=== PATIENT | female | born 1935 | race Caucasian/White ===

== ENCOUNTER → 2016-08-04 | Outpatient (CLI) | payer BC ==
[~2016-08-04] MED LIST: ACET650T49 PO; ALBU1AER9 INH; ALUMCHW2 PO; APIX1TAB3 PO; ASPCH81X PO; ATOR10TA88 PO; BIOT1TAB5 PO; CLC100 PO; CLIN150C PO; DILT120C99 PO; DOCU100C31 PO; ESTR1CRE PV; EVS60 PO; FLUT0.0529 NAE; FURO-85 PO; LPR25 PO; MULT-506 PO; OMEP20CA9 PO; OMEP40CA41 PO; POTA10CA28 PO; POTA10TA PO; RALO60TA12 PO; SIMV10TA2 PO; SPIR50TA PO; [UNRECOGNIZED DRUG - CODE] OP; [UNRECOGNIZED DRUG - CODE] OPB
[2016-08-04 19:16] LABS: BASO % 0.5 %; BASO ABS # 0.03 K/uL (0-0.2); EOS % 2.1 %; HEMATOCRIT 37.4 % (37-47); IG% 0.5 %; LYMPH % 30.4 %; LYMPH ABS # 2.02 K/uL (1.2-3.4); MEAN CELL VOLUME 94.9 fL (80-100); MEAN CORPUSCULAR HEMOGLOBIN 31.5 pg (25-34); MEAN PLATELET VOLUME 8.8 fL (7.4-10.4); MONO % 7.2 %; NEUT % 59.3 %; PLATELET COUNT 334 K/uL (130-400); RED BLOOD COUNT 3.94 M/uL (4.2-5.4); WHITE BLOOD COUNT 6.65 K/uL (4.8-10.8)
[2016-08-04 19:41] LABS: BLOOD UREA NITROGEN 9 mg/dl (7-18); CALCIUM 8.9 mg/dl (8.5-10.1); CARBON DIOXIDE 32 mmol/L (21-32); CHLORIDE 105 mmol/L (98-107); COMPLETE YES; CREATININE 0.72 mg/dl (0.60-1.20); GLUCOSE 84 mg/dl (70-99); MEAN CORPUSCULAR HGB CONC 33.2 g/dl (32-36); POTASSIUM 3.7 mmol/L (3.5-5.1); SODIUM 141 mmol/L (136-145)
== END | disposition home or self-care (01) ==
LOC: C.LAB 19:00
PROVIDERS: ATTEND Family Medicine
DX: R07.9 Chest pain, unspecified (principal)

== ENCOUNTER → 2016-08-05 | Outpatient (CLI) | payer BC ==
--- NOTE | 2016-08-05 18:34 | DIAGNOSTIC IMAGING REPORT ---
CHEST 2 VIEWS ROUTINE HISTORY: COUGH, NASAL CONGESTION COMPARISON: Chest 11/18/2011. FINDINGS: S-shaped scoliosis of the thoracolumbar spine. Lumbar spine fusion hardware is again noted. No focal lung consolidations to suggest pneumonia. No evidence for pulmonary edema. The heart is normal in size. No pleural effusions. No pneumothorax. Moderate to large hiatus hernia, unchanged. IMPRESSION: 1. No acute process. No focal lung consolidations to suggest pneumonia. 2. Hiatus hernia, unchanged. Electronically signed by: Iron Olivares M.D. 08/05/2016 6:32 PM Dictated Date/Time: 08/05/2016 6:31 PM
== END | disposition home or self-care (01) ==
LOC: C.RAD 18:01
PROVIDERS: ATTEND Student in an Organized Health Care Education/Training Program
DX: R05 Cough (principal); R09.81 Nasal congestion; K44.9 Diaphragmatic hernia without obstruction or gangrene

== ENCOUNTER → 2016-08-14 | Outpatient (CLI) | payer BC ==
--- NOTE | 2016-08-14 13:35 | MAMMOGRAPHY REPORT ---
BILATERAL DIGITAL SCREENING MAMMOGRAM WITH CAD: 08/14/2016 CLINICAL HISTORY: Routine screening. Patient has no complaints. TECHNIQUE: Current study was also evaluated with a Computer Aided Detection (CAD) system. Bilatera l CC and MLO views were obtained. COMPARISON: Comparison is made to exams dated: 07/27/2015 mammogram, 07/12/2013 mammogram, 07/18/2014 m ammogram, 07/09/2012 mammogram, 07/06/2012 mammogram, and 07/01/2011 mammogram - [facility]. BREAST COMPOSITION: There are scattered areas of fibroglandular density in both breasts. FINDINGS: No suspicious masses, calcifications, or areas of architectural distortion are noted in e ither breast. There has been no significant interval change compared to prior exams. Scattered bila teral benign-appearing calcifications are not significantly changed. Left superior breast asymmetry is stable dating back to at least the 2008 exam. IMPRESSION: ACR BI-RADS CATEGORY 2: BENIGN There is no mammographic evidence of malignancy. A 1 year screening mammogram is recommended. The p atient will receive written notification of the results. Approximately 10% of breast cancers are not detected with mammography. A negative mammographic repor t should not delay biopsy if a clinically suggestive mass is present. Evi Camacho M.D. ah/:08/14/2016 09:16:25 Nurse Special: Michael MARSHALL(R)(M), [facility] letter sent: Normal 1/2 BI-RADS Code: ACR BI-RADS Category 2: Benign
== END | disposition home or self-care (01) ==
LOC: C.MAMM 08:14
PROVIDERS: ATTEND Family Medicine
DX: Z12.31 Encounter for screening mammogram for malignant neoplasm of breast (principal)

== ENCOUNTER → 2016-09-15 | Day surgery (SDC) | payer BC ==
[2016-09-03 13:05] VITALS: Ht 152.4 cm; Wt 59.1 kg
[~2016-09-15] VITALS: Ht 152.4 cm; Wt 59.1 kg
[~2016-09-15] MED LIST changes: +ATOR10TA82 PO; -ATOR10TA88 PO; -CLC100 PO; -ESTR1CRE PV; -EVS60 PO; -FLUT0.0529 NAE; +LIDOCAINE HCL 2% 2 ML VIAL (20MG/ML) ONE; -OMEP20CA9 PO; -POTA10CA28 PO; +PROPOFOL IV EMULSION 10 MG/ML 20 ML VIAL IV ONE; -RALO60TA12 PO; +RALO60TA30 PO; -SIMV10TA2 PO; +SODIUM CHLORIDE 0.9% 500ML 500 ML IV ONE; -SPIR50TA PO; -[UNRECOGNIZED DRUG - CODE] OP
--- NOTE | 2016-09-15 16:19 | Endo History and Physical ---
History & Physical Date of Service: September 15, 2016. Chief Complaint: Atypical chest pain, dysphagia/reflux Referring Physician: Deo Gonzales Rn History of Present Illness 81 yo CF who presents for EGD secondary to dysphagia and GERD. Past Surgical History Hx Cardiac Surgery: No Hx Internal Defibrillator: No Hx Pacemaker: No Hx Abdominal Surgery: No Hx of Implantable Prosthesis: No Hx Post-Op Nausea and Vomiting: No Hx Cancer Surgery: Yes Hx Thoracic Surgery: No Hx Orthopedic: Yes (LUMBAR FUSION X 2, RT JAMES) Hx Urinary Tract Surgery: No Family History None Social History Smoking Status: Former Smoker Hx Substance Use: No Hx Alcohol Use: Yes (1 GLASS OF WINE DAILY) Allergies Coded Allergies: Iodine (Verified Allergy, Unknown, SICK TO STOMACH, 09/03/16) Lobster (Verified Allergy, Unknown, VIOLENTLY SICK, 09/03/16) Penicillins (Verified Allergy, Unknown, SICK TO STOMACH, 09/03/16) Propoxyphene (Verified Allergy, Unknown, HYPER, 09/03/16) Shrimp (Verified Allergy, Unknown, VIOLENTLY SICK, 09/03/16) Tetanus Toxoid (Verified Allergy, Unknown, "OUT OF ORBIT", 09/03/16) Pseudoephedrine (Verified Adverse Reaction, Mild, PASSED OUT, SPACEY, 09/03) Current Medications Reported Home Medications Medications Dose Route/Sig Max Daily Dose Days Date Category Dose Instructions Nevanac (Nepafenac) 0.1 % Laurence 1 Drops OPB HS 30 09/03/16 Reported Gaviscon (Aluminum Hydroxide-Mag Trisil) 1 Chw Chw 1 Tab PO HS 09/03/16 Reported Lipitor (Atorvastatin Calcium) 10 Mg Tab 10 Mg PO HS 09/03/16 Reported K-Tabs (Potassium Chloride) 10 Meq Tab 1 Tab PO QAM 09/03/16 Reported Prilosec (Omeprazole) 40 Mg Cap 40 Mg PO QAM 09/03/16 Reported Multivitamin (Multivitamins) Tab 1 Tab PO QAM 09/03/16 Reported Lopressor (Metoprolol Tartrate) 25 Mg Tab 25 Mg PO BID 09/03/16 Reported Lasix (Furosemide) 20 Mg Tab 20 Mg PO DAILY PRN 09/03/16 Reported Evista (Raloxifene Hcl) 60 Mg Tab 60 Mg PO QPM 09/03/16 Reported Eliquis (Apixaban) 5 Mg Tab 5 Mg PO BID 09/03/16 Reported Docusate Sodium 100 Mg Cap 1 Cap PO HS 7 09/03/16 Reported Diltiazem Cd (Diltiazem Hcl Coated Beads) 120 Mg Cap 120 Mg PO QPM 09/03/16 Reported Cleocin (Clindamycin Hcl) 150 Mg Cap 150 Mg PO DIRECTED PRN 09/03/16 Reported Arthritis Pain Relief (Acetaminophen) 650 Mg Tab 1 Tablets PO BID 02/28/13 Reported takes at 2am & 2pm Proair Hfa (Albuterol) Aers 2 Puffs INH BID PRN 02/28/13 Reported as needed for wheezing Aspirin Chewable (Aspirin) 81 Mg Chew 81 Mg PO QPM 02/28/13 Reported Biotin 1,000 Mcg Tab 1,000 Mcg PO QAM 02/28/13 Reported Vital Signs Weight (Kilograms): 59.09 Height (Feet): 5 Height (Inches): 0 Date Time Temp Pulse Resp B/P Pulse Ox O2 Delivery O2 Flow Rate FiO2 09/15/16 15:36 36.7 68 20 171/88 99 Room Air Physical Exam General Appearance: WD/WN, no apparent distress Respiratory/Chest: Auscultation: breath sounds normal Cardiovascular: Heart Auscultation: RRR Abdomen: Bowel Sounds: normal Inspection & Palpation: soft, non-distended, no tenderness, guarding & rebound Assessment and Plan Assessment: 81 yo CF who presents for EGD secondary to dysphagia and GERD. Plan: Proceed with colonoscopy.
--- NOTE | 2016-09-15 16:34 | Anesthesiology Progress Note ---
Anesthesia Post Op Note Date & Time September 15, 2016 at 16:33 Vital Signs Pain Intensity: 3 Vital Signs Past 12 Hours Date Time Temp Pulse Resp B/P Pulse Ox O2 Delivery O2 Flow Rate FiO2 09/15/16 15:36 36.7 68 20 171/88 99 Room Air Notes Mental Status: alert / awake / arousable, participated in evaluation Pt Amnestic to Procedure: Yes Nausea / Vomiting: adequately controlled Pain: adequately controlled Airway Patency, RR, SpO2: stable & adequate BP & HR: stable & adequate Hydration State: stable & adequate Anesthetic Complications: no major complications apparent
--- NOTE | 2016-09-15 16:35 | Discharge Instructions ---
Endoscopy Patient Instructions Date / Procedure(s) Performed September 15, 2016. EGD Allergy Information Coded Allergies: Iodine (Verified Allergy, Unknown, SICK TO STOMACH, 09/15/16) Lobster (Verified Allergy, Unknown, VIOLENTLY SICK, 09/15/16) Penicillins (Verified Allergy, Unknown, SICK TO STOMACH, 09/15/16) Propoxyphene (Verified Allergy, Unknown, HYPER, 09/15/16) Shrimp (Verified Allergy, Unknown, VIOLENTLY SICK, 09/15/16) Tetanus Toxoid (Verified Allergy, Unknown, "OUT OF ORBIT", 09/15/16) Pseudoephedrine (Verified Adverse Reaction, Mild, PASSED OUT, SPACEY, ) Discharge Date / Findings September 15, 2016. Gastritis s/p biopsies Large Hiatal hernia Medication Instructions Stopped Medication(s): Eliquis OK to resume all medications today as prescribed Reported Home Medications Medications Dose Route/Sig Max Daily Dose Days Date Category Dose Instructions Nevanac (Nepafenac) 0.1 % Laurence 1 Drops OPB HS 30 09/03/16 Reported Gaviscon (Aluminum Hydroxide-Mag Trisil) 1 Chw Chw 1 Tab PO HS 09/03/16 Reported Lipitor (Atorvastatin Calcium) 10 Mg Tab 10 Mg PO HS 09/03/16 Reported K-Tabs (Potassium Chloride) 10 Meq Tab 1 Tab PO QAM 09/03/16 Reported Prilosec (Omeprazole) 40 Mg Cap 40 Mg PO QAM 09/03/16 Reported Multivitamin (Multivitamins) Tab 1 Tab PO QAM 09/03/16 Reported Lopressor (Metoprolol Tartrate) 25 Mg Tab 25 Mg PO BID 09/03/16 Reported Lasix (Furosemide) 20 Mg Tab 20 Mg PO DAILY PRN 09/03/16 Reported Evista (Raloxifene Hcl) 60 Mg Tab 60 Mg PO QPM 09/03/16 Reported Eliquis (Apixaban) 5 Mg Tab 5 Mg PO BID 09/03/16 Reported Docusate Sodium 100 Mg Cap 1 Cap PO HS 7 09/03/16 Reported Diltiazem Cd (Diltiazem Hcl Coated Beads) 120 Mg Cap 120 Mg PO QPM 09/03/16 Reported Cleocin (Clindamycin Hcl) 150 Mg Cap 150 Mg PO DIRECTED PRN 09/03/16 Reported Arthritis Pain Relief (Acetaminophen) 650 Mg Tab 1 Tablets PO BID 02/28/13 Reported takes at 2am & 2pm Proair Hfa (Albuterol) Aers 2 Puffs INH BID PRN 02/28/13 Reported as needed for wheezing Aspirin Chewable (Aspirin) 81 Mg Chew 81 Mg PO QPM 02/28/13 Reported Biotin 1,000 Mcg Tab 1,000 Mcg PO QAM 02/28/13 Reported Provider Instructions Activity Restrictions - No exercising or heavy lifting for 24 hours. - Do not drink alcohol the day of the procedure. - Do not drive a car or operate machinery until the day after the procedure. - Do not make any important decisions or sign important papers in 24 hours after the procedure. Following Day: - Return to full activity which may include returning to work/school. Diet Start your diet with liquids and light foods (jello, soup, juice, toast). Then eat your usual diet if not nauseated. Treatment For Common After Affects For mild abdominal pain, bloating, or excessive gas: - Rest - Eat lightly - Lie on right side Follow-Up Information Follow-up with Deo Gonzales Rn as scheduled Anesthesia Information What You Should Know You have had a procedure that required some medicine to reduce anxiety and discomfort. This treatment is called moderate sedation. After receiving the treatment, you may be sleepy, but you will be able to breathe on your own. The effects of the treatment may last for several hours. Follow these instructions along with Activity/Diet recommendations noted above: * Do NOT do anything where dizziness or clumsiness would be dangerous. * Rest quietly at home today, then you can be up and about tomorrow. * Have a responsible person stay with you the rest of today. * You may have had an I.V. today. If so, you may take the dressing off later today. Recommendations Call your doctor if: * Trouble breathing * Continuous vomiting for more than 24 hours * Temperature above 101 degrees * Severe abdominal pain or bloating * Pain not relieved by pain medicine ordered * There is increased drainage or redness from any incision * A large amount of rectal bleeding greater than 2-3 tablespoons. (If you had a polyp/s removed or have hemorrhoids, a small amount of blood - from the rectum is to be expected.) * You have any unanswered questions or concerns. IN THE EVENT OF A SERIOUS EMERGENCY, GO TO THE NEAREST EMERGENCY ROOM Your discharge instructions were prepared by provider Elgin Guzman. Patient Instructions Signature Page Elaine Vasquez Patient (or Guardian) Signature/Date: I have read and understand the instructions given to me by my caregivers. Caregiver/RN/Doctor Signature/Date: The above-named patient and/or guardian has received patient instructions on this date. + Original Patient Signature Page (only) stays with chart. Please make copy for patient.
--- NOTE | 2016-09-15 16:48 | GI REPORT ---
Procedure Date: 09/15/2016 4:11 PM Procedure: Upper GI endoscopy Indications: Dysphagia, Gastro-esophageal reflux disease Medicines: Monitored Anesthesia Care Complications: No immediate complications. Estimated Blood Loss: Estimated blood loss: none. Procedure: Pre-Anesthesia Assessment: - Prior to the procedure, a History and Physical was performed, and patient medications and allergies were reviewed. The patient's tolerance of previous anesthesia was also reviewed. The risks and benefits of the procedure and the sedation options and risks were discussed with the patient. All questions were answered, and informed consent was obtained. Prior Anticoagulants: The patient last took aspirin 1 day and Eliquis (apixaban) 3 days prior to the procedure. ASA Grade Assessment: III - A patient with severe systemic disease. After reviewing the risks and benefits, the patient was deemed in satisfactory condition to undergo the procedure. After obtaining informed consent, the endoscope was passed under direct vision. Throughout the procedure, the patient's blood pressure, pulse, and oxygen saturations were monitored continuously. The scope was introduced through the mouth, and advanced to the second part of duodenum. The upper GI endoscopy was accomplished without difficulty. The patient tolerated the procedure well. Findings: The examined esophagus was normal. A large hiatus hernia was present. Localized mild inflammation characterized by erythema was found in the gastric antrum. Biopsies were taken with a cold forceps for histology. The examined duodenum was normal. Impression: - Normal esophagus. - Large hiatus hernia. - Gastritis. Biopsied. - Normal examined duodenum. Recommendation: - Resume previous diet. - Continue present medications. - Await pathology results. - Refer to a surgeon at appointment to be scheduled. Elgin Guzman, DO 09/15/2016 4:47:43 PM This report has been signed electronically. Note Initiated On: 09/15/2016 4:11 PM I attest to the content of the Intraoperative Record and orders documented therein, exceptions below
[2016-09-15 17:04] VITALS: BP 168/94; PULSE 69; O2SAT 99
== END | disposition home or self-care (01) ==
LOC: C.GI 14:34
PROVIDERS: ATTEND Internal Medicine
DX: K44.9 Diaphragmatic hernia without obstruction or gangrene (principal); K31.9 Disease of stomach and duodenum, unspecified; K21.9 Gastro-esophageal reflux disease without esophagitis; R13.10 Dysphagia, unspecified; Z87.891 Personal history of nicotine dependence; Z79.82 Long term (current) use of aspirin; Z79.899 Other long term (current) drug therapy

== ENCOUNTER → 2017-04-23 | Outpatient (CLI) | payer BC ==
[~2017-04-23] MED LIST changes: -LIDOCAINE HCL 2% 2 ML VIAL (20MG/ML) ONE; -PROPOFOL IV EMULSION 10 MG/ML 20 ML VIAL IV ONE; -SODIUM CHLORIDE 0.9% 500ML 500 ML IV ONE
== END | disposition home or self-care (01) ==
LOC: C.MAMM 08:47
PROVIDERS: ATTEND Family Medicine
DX: M81.0 Age-related osteoporosis without current pathological fracture (principal); M85.839 Other specified disorders of bone density and structure, unspecified forearm; M85.859 Other specified disorders of bone density and structure, unspecified thigh

== ENCOUNTER → 2017-08-20 | Outpatient (CLI) | payer BC ==
--- NOTE | 2017-08-20 14:43 | MAMMOGRAPHY REPORT ---
BILATERAL DIGITAL SCREENING MAMMOGRAM TOMOSYNTHESIS WITH CAD: 08/20/2017 CLINICAL HISTORY: Routine screening. Patient has no complaints. TECHNIQUE: Breast tomosynthesis in addition to standard 2D mammography was performed. Current study was also evaluated with a Computer Aided Detection (CAD) system. COMPARISON: Comparison is made to exams dated: 08/14/2016 mammogram, 07/27/2015 mammogram, 07/18/2014 ma mmogram, 07/12/2013 mammogram, 01/06/2013 ultrasound, and 01/06/2013 mammogram - [facility] enter. BREAST COMPOSITION: There are scattered areas of fibroglandular density in both breasts. FINDINGS: No suspicious masses, calcifications, or areas of architectural distortion are noted in ei ther breast. There has been no significant interval change compared to prior exams. Bilateral benign -appearing calcifications are again noted. IMPRESSION: ACR BI-RADS CATEGORY 2: BENIGN There is no mammographic evidence of malignancy. A 1 year screening mammogram is recommended. The pa tient will receive written notification of the results. Approximately 10% of breast cancers are not detected with mammography. A negative mammographic report should not delay biopsy if a clinically suggestive mass is present. Evi Camacho M.D. /:08/20/2017 09:34:23 Health Nurse: Sharmaine David, [facility] letter sent: Normal 1/2 BI-RADS Code: ACR BI-RADS Category 2: Benign
== END | disposition home or self-care (01) ==
LOC: C.MAMM 08:24
PROVIDERS: ATTEND Family Medicine
DX: Z12.31 Encounter for screening mammogram for malignant neoplasm of breast (principal)

== ENCOUNTER 2022-05-09 12:18 | Inpatient (IN) ==
[2022-05-09] MEDS ORDERED: FAMOTIDINE 20MG IV PUSH 20 MG/5 ML SYR IV STA (12:40)
[2022-05-09] MEDS ORDERED: ACETAMINOPHEN 1,000 MG/100 ML VIAL IV STA (12:40)
[2022-05-09] MEDS ORDERED: ONDANSETRON INJ 2 MG/ML 2 ML VIAL IV STA (12:40)
[2022-05-09] MEDS ORDERED: SODIUM CHLORIDE 0.9% 500 ML IV ONE (12:40)
[2022-05-09 12:56] LABS: Hematocrit (blood only) 39.8 % (34.1-44.9); Hemoglobin 12.4 g/dl (12.0-16.0); Mean Corpuscular Hemoglobin 24.9 pg (25.0-34.0); Mean Corpuscular Hgb Conc 31.2 g/dL (32.0-36.0); Mean Corpuscular Volume 80.1 fL (80.0-100.0); Mean Platelet Volume 9.4 fL (9.4-12.3); Platelet Count 397 K/uL (130-400); RDW Coefficient of Variation 21.5 % (11.5-14.5); RDW Standard Deviation 58.4 fL (36.4-46.3); Red Blood Count 4.97 M/uL (3.93-5.22); White Blood Count 26.19 K/ul (4.8-10.8)
[2022-05-09 13:20] LABS: Anisocytosis Present; Basophils # (auto) 0.04 K/uL (0-0.2); Basophils % (auto) 0.2 %; Immature Granulocytes # (auto) 0.14 K/uL (0.00-0.02); Immature Granulocytes % (auto) 0.5 %; Lymphocytes % (auto) 7.6 %; Monocytes # (auto) 1.31 K/uL (0.24-0.82); Neutrophils % (auto) 86.7 %
[2022-05-09 13:25] LABS: BUN Creatinine Ratio 33.3 (10-20); Bilirubin,Total 0.7 mg/dl (0.2-1.0); Calcium 9.9 mg/dl (8.5-10.1); Creatinine Clr Calc Pharmacy 31.6 ml/min; Est GFR (African American) 68.1 ml/min; Est GFR (Non-African American) 58.7 ml/min; Globulin 3.9 gm/dl (2.5-4.0); Potassium 3.5 mmol/L (3.5-5.1); Total Protein 7.9 gm/dl (6.0-8.3)
[2022-05-09] MEDS ORDERED: OPTIRAY 350 100ml IV ONE (14:11)
--- NOTE | 2022-05-09 15:03 | CT Scan Report ---
CT OF THE ABDOMEN AND PELVIS WITH CONTRAST CLINICAL HISTORY: Abdominal pain and nausea. COMPARISON STUDY: Right upper quadrant ultrasound March 08, 2021. PET/CT January 07, 2021. TECHNIQUE: Following IV administration of 89 mL of Optiray, axial images of the abdomen and pelvis we re obtained from the lung bases to the proximal femurs. Images were reviewed in the axial, sagittal, and coronal planes. IV contrast was administered without complication. Automated exposure control wa s utilized for the study. A dose lowering technique was utilized adhering to the principles of ALARA . CT DOSE: 240.90 mGy.cm FINDINGS: A large hiatal hernia with partially intrathoracic stomach is partially imaged on this exam . Intrathoracic portion of the stomach is moderately distended with air-fluid level. No pneumatosis, free air or portal venous gas is present. Ground glass opacities within the right lower lungs favor a telectasis. A large right renal cyst measuring 13 cm is noted. A few smaller renal cysts are present. There are multiple hepatic cysts. There is no hydronephrosis. The adrenal glands are unremarkable. N ote is made of a subtle hypodense mass likely arising from the uncinate process of the pancreas on ax ial image 173 of 391. This measures approximately 3 x 2.8 cm. 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 There is no biliary or pancreatic ductal dilatation. No peripancreatic or pericholecystic stranding is noted. There is no evidence for a bowel obstruction. The appendix is not visualized. There is a moderate amount of stool within the transverse colon. Wall thickening of the transverse colon with mild adjacent stranding is present. There is no abscess. A p essary device is in place. There is no free fluid. No abscess is present. Right hip arthroplasty and postoperative findings within the spine are present. The caliber of the abdominal aorta is normal. Th e celiac axis is patent. 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 No acute fractures within the lumbar spi ne, pelvis or hips are identified. IMPRESSION: 1. Hypodense infiltrative mass, measuring approximately 3 x 2.8 cm, likely arising from the uncinate process. 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 This is consisten t with a neoplasm and pancreatic adenocarcinoma is a primary consideration. An infiltrative mesenteri c mass could appear similar. GI consultation for consideration for EUS guided biopsy is recommended. 2. Wall thickening of the transverse colon with mild adjacent stranding. This suggests a nonspecific colitis. Venous ischemic colitis is within the differential given the SMV stenosis/occlusion. 3. Large hiatal hernia. Moderately distended partially visualized intrathoracic stomach with air-flui d level. ACT 112: Positive. There are findings on this exam that require communication between the performing entity and the patient following Patient Test Result Information Act ([place] Act 112) guidelines. Electronically signed by: Armin Garcia M.D. 05/09/2022 3:01 PM
--- NOTE | 2022-05-09 15:18 | Emergency Department Note ---
Impression & Plan Abdominal mass, Colitis, Leukocytosis, Malignant melanoma of left lower leg ED Provider Note NAME: SHI LYNN AGE: 86 SEX: F ARRIVES VIA: Ambulance INFORMANT: Patient ED PROVIDER(S): Jeffrey William MD CHIEF COMPLAINT: Abdominal pain. 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 She reports also having symptoms of constipation in the setting of taking iron supplements. She reports her pain became more severe today and presents for evaluation. She denies any fevers, chills, cough, congestion, urinary symptoms. On arrival the patient is uncomfortable but no acute distress, afebrile with a rate in the 90s and blood pressure 170s/80s in the setting of her discomfort. Abdomen is soft but with moderate upper abdominal tenderness without guarding or rebound. WBC 26K with neutrophil predominance and left shift. H/H and platelets within normal limits. Chemistry without metabolic acidosis. BUN/creatinine> 30 consistent with the patient's clinically dry appearance. Electrolytes and LFTs without significant abnormality. Lipase within normal limits. COVID-19 RNA, ADRIENNE test was negative. 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 Additional note is made of wall thickening of the transverse colon and mild adjacent stranding which is consistent with a nonspecific colitis though venous ischemic colitis is within the differential given the above findings. Large hiatal hernia is also noted with moderate distention and partially visualized intrathoracic stomach with air-fluid levels. Case was discussed with gastroenterology on-call, Dr. Fletcher, who reviewed the patient's records. Appreciate recommendations. Does not feel as though the pancreatic mass is acutely related to the patient's symptoms and work-up for this would typically be done outpatient with EUS. He did see that there was question of malignancy in the region of the Duodenum on her PET scan from December. While she did have an EUS subsequently with biopsy negative for malignant cells, the site in question may have not been sampled/biopsied given subsequent growth of the pancreatic mass seen on CT today. Further, question of SMV stenosis occlusion typically will not require intervention and given the patient's malignancy would not be a candidate for intervention surgically. Agrees with admission for management of symptoms given leukocytosis with IV antibiotics and monitoring. His office will plan to arrange outpatient EUS when patient is able to be discharged. Upon re-evaluation the patient did feel improved following IVF hydration, apap, famotidine, and Zofran. However, still with mild upper abdominal tenderness. Findings and plan for admission reviewed with the patient, she was in agreement. blood cultures and Zosyn ordered. N "allergy" list is GI upset and so no suspected to be true allergy. Case was discussed [place], [facility] [place] who will evaluate the patient for admission. Findings and plan for admission reviewed with the patient's son, Duke Lynn Jr., over the phone who was driving up from [facility] to be with his mother in the hospital. Lactic acid 3.0 and Procalcitonin 12.4. Further management per admitting team. Triage Nursing notes reviewed and agree them. Prior medical records reviewed Vital Signs: reviewed Differential diagnosis: Gastroenteritis, food borne illness, infections, appendicitis, diverticulitis, inflammatory bowel disease, obstruction, GI bleed, biliary pathology, volvulus, as well as other pathologies. ER treatment provided: See below. Diagnostics interpreted by me: ECG: Normal sinus rhythm, 91 bpm, no ectopy, no overt ST ovation or depression, QTC 467, QRS 84. Cardiac Monitoring: An order for continuous cardiac monitoring was placed and demonstrated normal sinus rhythm, 91 bpm, no ectopy. Laboratory studies: See below Imaging studies: See below Consultation(s): Dr. Fletcher, GI on-call. Dr. 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 She reports also having symptoms of constipation in the setting of taking iron supplements. She reports her pain became more severe today and presents for evaluation. She denies any fevers, chills, cough, congestion, urinary symptoms. ROS: See above HPI for pertinent positives & negatives. A total of 10 systems reviewed and were otherwise negative. VITALS:See Below PHYSICAL EXAMINATION: GENERAL: Awake, alert, uncomfortable-appearing, in no distress HENT: Normocephalic, atraumatic. Oropharynx with dry mucous membranes and otherwise unremarkable. EYES: Normal conjunctiva. Sclera non-icteric. NECK: Supple. No nuchal rigidity. FROM. No JVD. RESPIRATORY: Clear to auscultation. CARDIAC: Regular rate, normal rhythm. Extremities warm and well perfused. Pulses equal. ABDOMEN: Soft, non-distended. Moderate upper abdominal tenderness without guarding or rebound. No rebound or guarding. No masses. RECTAL: Deferred. MUSCULOSKELETAL: Chest examination reveals no tenderness. The back is symmetrical on inspection without obvious abnormality. There is no CVA tenderness to palpation. No joint edema. LOWER EXTREMITIES: Calves are equal size bilaterally and non-tender. No edema. No discoloration. NEURO: Normal sensorium. No sensory or motor deficits noted. SKIN: No rash or jaundice noted. Jeffrey William MD Past Med/Surg History Medical History Atrial fibrillation with rapid ventricular response Bigeminal rhythm Glaucoma Melanoma of lower leg Migraine Plantar fasciitis of right foot Tinnitus Surgical History History of back surgery History of melanoma excision History of neck surgery History of total hip replacement S/P cataract surgery S/P correction of deviated nasal septum S/P dilation and curettage S/P laser trabeculoplasty of eye Anterior chamber S/P tonsillectomy Family History Mother Breast cancer Brother Cancer Father Congestive heart failure Myocardial infarction Denies family history of Ovarian cancer Prostate cancer Colorectal cancer Social History Smoking Status: Former smoker Tobacco Type: Cigarettes Second Hand Exposure: No; Do You Dip or Chew Tobacco: No; Tobacco Cessation Education Requested by Patient: No Hx Alcohol Use: No Hx Substance Use: No Preferred Language: South African Communication Ability: Effective Visual Impairment: No Limitations Hearing Ability: Normal Gate Guard Required: Yes Beliefs That Will Affect Care: None marital status: Current Living Situation: Spouse Current Living Situation Comment: cats current occupational status: retired Other Information That Helps Us Care for You: No Feels Safe at Home: Yes Safety Concerns: Feels Safe At This Time Dental Care, Regularly: Yes Physical Activity Frequency: 3-4 Times per Week Physical Activity Frequency Comment: TREADMILL Seatbelt Use: always Sunscreen Use: Yes Allergies Allergies Allergy/AdvReac Type Severity Reaction Status Date / Time nivolumab [From Opdivo] Allergy Severe Unknown Verified 05/09/22 16:58 shellfish derived Allergy Severe "violently Verified 05/09/22 16:58 sick" after eating lobster shrimp Allergy Intermediate VIOLENTLY Verified 05/09/22 16:58 SICK pseudoephedrine AdvReac Severe PASSED Verified 05/09/22 16:58 OUT, SPACEY iodine AdvReac Intermediate SICK TO Verified 05/09/22 16:58 STOMACH Penicillins AdvReac Intermediate SICK TO Verified 05/09/22 16:58 STOMACH propoxyphene AdvReac Intermediate HYPER Verified 05/09/22 16:58 tetanus toxoid, adsorbed AdvReac Intermediate "OUT OF Verified 05/09/22 16:58 ORBIT" Home Meds Home Medications Medication Instructions Recorded Confirmed biotin 1 mg tablet 1 mg PO DAILY 12/27/18 05/09/22 cholecalciferol (vitamin D3) 25 1,000 units PO DAILY 12/27/18 05/09/22 mcg (1,000 unit) tablet clindamycin HCl 150 mg capsule 150 mg PO DIRECTED PRN 1 HR 12/27/18 05/09/22 PRIOR TO DENTAL PROCEDURES docusate sodium 100 mg capsule 100 mg PO HS 12/27/18 05/09/22 triamcinolone acetonide 0.1 % 1 appln topical DIRECTED 11/04/19 05/09/22 topical cream bimatoprost 0.01 % eye drops 1 drp ophthalmic (eye) DAILY 02/11/21 05/09/22 (Lumigan) dorzolamide 22.3 mg-timolol 6.8 1 drp OPL BID 02/11/21 05/09/22 mg/mL eye drops (Cosopt) diclofenac sodium 1 % topical gel 2 g topical QID 08/15/21 05/09/22 (Arthritis Pain (diclofenac)) nepafenac 0.1 % eye 1 drp OPB DAILY 08/15/21 05/09/22 drops,suspension (Nevanac) apixaban 2.5 mg tablet 2.5 mg PO BID 01/14/22 05/09/22 Iron Infusion 0 dose IV DIRECTED PRN 05/09/22 05/09/22 EXHAUSTION acetaminophen 650 mg 650 mg PO TID 05/09/22 05/09/22 tablet,extended release aluminum hydrox-magnesium carb 160 1 tab PO HS 05/09/22 05/09/22 mg-105 mg chewable tablet atorvastatin 10 mg tablet 10 mg PO HS 05/09/22 05/09/22 diphenhydramine HCl 25 mg capsule 25 mg PO DIRECTED PRN 1 HR 05/09/22 05/09/22 (Benadryl) PRIOR TO CT SCAN food supplemt, lactose-reduced 1 ea PO DAILY 05/09/22 05/09/22 pembrolizumab 25 mg/mL intravenous 0 mg IV .Q3WK 05/09/22 05/09/22 solution (Keytruda) prednisone 50 mg tablet 150 mg PO DIRECTED PRN 1 HR 05/09/22 05/09/[address]AN Previous Rx's Medication Instructions Recorded aspirin 81 mg tablet,delayed 81 mg PO DAILY #90 tabs 12/14/18 release (Veena Low Dose Aspirin) diltiazem HCl 120 mg 120 mg PO DAILY #90 caps 06/26/21 capsule,extended release 24 hr, controlled metoprolol tartrate 25 mg tablet 25 mg PO BID #180 tabs 07/08/21 potassium chloride 10 mEq 10 meq PO DAILY #90 caps 07/26/21 capsule,extended release omeprazole 20 mg capsule,delayed 20 mg PO DAILY #90 caps 01/10/22 release fluticasone furoate 100 1 inh inhalation DAILY #60 ea 01/21/22 mcg-vilanterol 25 mcg/dose inhalation powder (Breo Ellipta) Results & Data (ED) Vital Signs Vital Signs - 24 hr 05/09/22 12:11 05/09/22 12:11 05/09/22 12:28 Temperature 36.6 C Temperature Source Oral Pulse Rate 90 103 H Pulse Rate from SpO2 Sensor Pulse Rhythm Regular Pulse Strength Normal Respiratory Rate 19 20 18 Respiratory Effort / Characteristics Non-Labored Non-Labored Respiratory Depth Normal Normal Respiratory Pattern Regular Regular Blood Pressure 170/91 H Blood Pressure Mean 117 Blood Pressure Position Lying Pulse Oximetry 99 94 Oxygen Delivery Method Room Air Sepsis Recent Fever Within 48 Hours No Sepsis New/Unexplained Change in Mental Status N/A Sepsis Action Taken by Nursing No Action Required 05/09/22 12:30 05/09/22 12:49 05/09/22 12:49 Temperature Temperature Source Pulse Rate 102 H 103 H Pulse Rate from SpO2 Sensor 83 Pulse Rhythm Pulse Strength Respiratory Rate 23 24 Respiratory Effort / Characteristics Respiratory Depth Respiratory Pattern Blood Pressure 177/84 H Blood Pressure Mean 115 Blood Pressure Position Pulse Oximetry 93 93 Oxygen Delivery Method Sepsis Recent Fever Within 48 Hours Sepsis New/Unexplained Change in Mental Status Sepsis Action Taken by Nursing 05/09/22 13:00 05/09/22 13:30 05/09/22 14:00 Temperature Temperature Source Pulse Rate 96 H 85 Pulse Rate from SpO2 Sensor 72 119 H Pulse Rhythm Pulse Strength Respiratory Rate 23 24 Respiratory Effort / Characteristics Respiratory Depth Respiratory Pattern Blood Pressure 167/80 H Blood Pressure Mean 109 Blood Pressure Position Pulse Oximetry 93 94 Oxygen Delivery Method Sepsis Recent Fever Within 48 Hours Sepsis New/Unexplained Change in Mental Status Sepsis Action Taken by Nursing 05/09/22 14:00 05/09/22 14:17 05/09/22 14:17 Temperature Temperature Source Pulse Rate 84 87 Pulse Rate from SpO2 Sensor Pulse Rhythm Pulse Strength Respiratory Rate 22 23 Respiratory Effort / Characteristics Respiratory Depth Respiratory Pattern Blood Pressure 169/60 H Blood Pressure Mean 96 Blood Pressure Position Pulse Oximetry 94 Oxygen Delivery Method Sepsis Recent Fever Within 48 Hours Sepsis New/Unexplained Change in Mental Status Sepsis Action Taken by Nursing 05/09/22 14:30 05/09/22 14:30 05/09/22 15:00 Temperature Temperature Source Pulse Rate 85 Pulse Rate from SpO2 Sensor Pulse Rhythm Pulse Strength Respiratory Rate 24 Respiratory Effort / Characteristics Respiratory Depth Respiratory Pattern Blood Pressure 119/82 159/82 H Blood Pressure Mean 94 107 Blood Pressure Position Pulse Oximetry Oxygen Delivery Method Sepsis Recent Fever Within 48 Hours Sepsis New/Unexplained Change in Mental Status Sepsis Action Taken by Nursing 05/09/22 15:00 05/09/22 15:30 05/09/22 15:30 Temperature Temperature Source Pulse Rate 78 83 Pulse Rate from SpO2 Sensor Pulse Rhythm Pulse Strength Respiratory Rate 20 23 Respiratory Effort / Characteristics Respiratory Depth Respiratory Pattern Blood Pressure 160/84 H Blood Pressure Mean 109 Blood Pressure Position Pulse Oximetry Oxygen Delivery Method Sepsis Recent Fever Within 48 Hours Sepsis New/Unexplained Change in Mental Status Sepsis Action Taken by Nursing 05/09/22 16:00 05/09/22 16:00 Temperature Temperature Source Pulse Rate 81 Pulse Rate from SpO2 Sensor Pulse Rhythm Pulse Strength Respiratory Rate 22 Respiratory Effort / Characteristics Respiratory Depth Respiratory Pattern Blood Pressure 157/86 H Blood Pressure Mean 109 Blood Pressure Position Pulse Oximetry Oxygen Delivery Method Sepsis Recent Fever Within 48 Hours Sepsis New/Unexplained Change in Mental Status Sepsis Action Taken by Nursing Laboratory Data Attestation: I reviewed the patient's lab results. Result diagrams: 05/09/22 12:42 05/09/22 12:42 Lab Results 05/09/22 05/09/22 05/09/22 Range/Units 12:42 12:42 13:14 WBC 26.19 H (4.8-10.8) K/ul RBC 4.97 (3.93-5.22) M/uL Hgb 12.4 (12.0-16.0) g/dl Hct 39.8 (34.1-44.9) % MCV 80.1 (80.0-100.0) fL MCH 24.9 L (25.0-34.0) pg MCHC 31.2 L (32.0-36.0) g/dL RDW Std Deviation 58.4 H (36.4-46.3) fL RDW Coeff of Pawan 21.5 H (11.5-14.5) % Plt Count 397 (130-400) K/uL MPV 9.4 (9.4-12.3) fL Immature Gran % (Auto) 0.5 % Neut % (Auto) 86.7 % Lymph % (Auto) 7.6 % [place] % (Auto) 5.0 % Eos % (Auto) 0.0 % Baso % (Auto) 0.2 % Neut # (Auto) 22.70 H (1.4-6.5) K/uL Lymph # (Auto) 2.00 (1.2-3.4) K/uL [place] # (Auto) 1.31 H (0.24-0.82) K/uL Eos # (Auto) 0.00 (0-0.50) K/uL Baso # (Auto) 0.04 (0-0.2) K/uL Immature Gran # (Auto) 0.14 H (0.00-0.02) K/uL Anisocytosis Present Sodium 141 (136-145) mmol/L Potassium 3.5 (3.5-5.1) mmol/L Chloride 100 (98-107) mmol/L Carbon Dioxide 26 (21-32) mmol/L Anion Gap 15 H (3-11) BUN 30 H (6-23) mg/dl Creatinine 0.90 (0.6-1.2) mg/dl Est Cr Clr Drug Dosing 31.6 ml/min Est GFR ( Amer) 68.1 ml/min Est GFR (Non-Af Amer) 58.7 ml/min BUN/Creatinine Ratio 33.3 H (10-20) Glucose 161 H (70-99(Fasting)) mg/dl Calcium 9.9 (8.5-10.1) mg/dl Total Bilirubin 0.7 (0.2-1.0) mg/dl AST 25 (13-39) U/L ALT 31 (7-52) U/L Alkaline Phosphatase 110 H (34-104) U/L Total Protein 7.9 (6.0-8.3) gm/dl Albumin 4.0 (3.4-5.0) gm/dl Globulin 3.9 (2.5-4.0) gm/dl Albumin/Globulin Ratio 1.0 (0.9-2) Lipase 25 (11-82) U/L SARS-CoV-2, RNA, NAAT NEGATIVE (NEGATIVE) Administered Medications Apixaban (Apixaban 2.5 Mg Tab) 2.5 mg PO BID ANABELL Stop: 06/08/22 20:59 Last Admin: 05/09/22 20:56 Dose: 2.5 mg Documented By: RDD Atorvastatin Calcium (Atorvastatin 10 Mg Tab) 10 mg PO QPM ANABELL Stop: 06/08/22 20:59 Last Admin: 05/09/22 20:56 Dose: 10 mg Documented By: RDD Dorzolamide/Timolol (Dorzolamide/Timolol 22.3/6.8mg/Ml 10 Ml Btl) 1 drops OP BID ANABELL Stop: 06/08/22 20:59 Last Admin: 05/09/22 20:56 Dose: 1 drops Documented By: RDD Sodium Chloride (Nss 1000ml) 1,000 mls @ 125 mls/hr IV .Q8H ANABELL Stop: 06/08/22 15:59 Last Admin: 05/09/22 17:12 Dose: 125 mls/hr Documented By: OCTAVIA Lactated Ringer's (Lr) 1,000 mls @ 125 mls/hr IV .Q8H ANABELL Stop: 06/08/22 18:42 Last Admin: 05/09/22 19:55 Dose: 125 mls/hr Documented By: OCTAVIA Metoprolol Tartrate (Metoprolol Tartrate 25 Mg Tab) 25 mg PO BID ANABELL Stop: 06/08/22 20:59 Last Admin: 05/09/22 21:15 Dose: 25 mg Documented By: OCTAVIA Triamcinolone Acetonide (Triamcinolone Acet 0.1% Cr 15 Gm Tube) 1 appln TOP QID ANABELL Stop: 06/08/22 18:42 Last Admin: 05/09/22 21:03 Dose: Not Given Documented By: Admin: 05/09/22 20:55 Dose: 1 appln Documented By: OCTAVIA Discontinued Medications Sodium Chloride (Nss) 500 mls @ 999 mls/hr IV .Q31M ONE Stop: 05/09/22 13:10 Last Infusion: 05/09/22 13:54 Dose: 0 mls/hr Documented By: Admin: 05/09/22 13:03 Dose: 999 mls/hr Documented By: OCTAVIA Acetaminophen (Ofirmev) 1,000 mg in 100 mls @ 400 mls/hr IV NOW STA Stop: 05/09/22 12:54 Last Infusion: 05/09/22 13:54 Dose: 0 mls/hr Documented By: Admin: 05/09/22 13:03 Dose: 400 mls/hr Documented By: OCTAVIA Famotidine (Pepcid 20mg Iv Push) 20 mg in 5 mls @ 2.5 mls/min IV NOW STA Stop: 05/09/22 12:41 Last Admin: 05/09/22 13:03 Dose: 2.5 mls/min Documented By: OCTAVIA Piperacillin Sod/Tazobactam Sod (Zosyn) 4.5 gm in 120 mls @ 240 mls/hr IV NOW ONE Stop: 05/09/22 16:16 Last Infusion: 05/09/22 22:34 Dose: 240 mls/hr Documented By: Admin: 05/09/22 17:12 Dose: 240 mls/hr Documented By: OCTAVIA Ioversol (Optiray 350 100ml) 89 ml IV ONCE ONE Stop: 05/09/22 14:12 Last Admin: 05/09/22 14:12 Dose: 89 ml Documented By: KRISTI Ondansetron HCl (Ondansetron Inj 2 Mg/Ml 2 Ml Vial) 4 mg IV NOW STA Stop: 05/09/22 12:41 Last Admin: 05/09/22 13:03 Dose: 4 mg Documented By: OCTAVIA Imaging Data Radiologist's Impression: Abdomen/Pelvis CT 05/09/22 12:40 CT OF THE ABDOMEN AND PELVIS WITH CONTRAST CLINICAL HISTORY: Abdominal pain and nausea. COMPARISON STUDY: Right upper quadrant ultrasound March 08, 2021. PET/CT January 07, 2021. TECHNIQUE: Following IV administration of 89 mL of Optiray, axial images of the abdomen and pelvis were obtained from the lung bases to the proximal femurs. Images were reviewed in the axial, sagittal, and coronal planes. IV contrast was administered without complication. Automated exposure control was utilized for the study. A dose lowering technique was utilized adhering to the principles of ALARA. CT DOSE: 240.90 mGy.cm FINDINGS: A large hiatal hernia with partially intrathoracic stomach is partially imaged on this exam. Intrathoracic portion of the stomach is moderately distended with air-fluid level. No pneumatosis, free air or portal venous gas is present. Ground glass opacities within the right lower lungs favor atelectasis. A large right renal cyst measuring 13 cm is noted. A few smaller renal cysts are present. There are multiple hepatic cysts. There is no hydronephrosis. The adrenal glands are unremarkable. Note is made of a subtle hypodense mass likely arising from the uncinate process of the pancreas on axial image 173 of 391. This measures approximately 3 x 2.8 cm. 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 There is no biliary or pancreatic ductal dilatation. No peripancreatic or pericholecystic stranding is noted. There is no evidence for a bowel obstruction. The appendix is not visualized. There is a moderate amount of stool within the transverse colon. Wall thickening of the transverse colon with mild adjacent stranding is present. There is no abscess. A pessary device is in place. There is no free fluid. No abscess is present. Right hip arthroplasty and postoperative findings within the spine are present. The caliber of the abdominal aorta is normal. The celiac axis is patent. 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 No acute fractures within the lumbar spine, pelvis or hips are identified. IMPRESSION: 1. Hypodense infiltrative mass, measuring approximately 3 x 2.8 cm, likely arising from the uncinate process. 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 This is consistent with a neoplasm and pancreatic adenocarcinoma is a primary consideration. An infiltrative mesenteric mass could appear similar. GI consultation for consideration for EUS guided biopsy is recommended. 2. Wall thickening of the transverse colon with mild adjacent stranding. This suggests a nonspecific colitis. Venous ischemic colitis is within the differential given the SMV stenosis/occlusion. 3. Large hiatal hernia. Moderately distended partially visualized intrathoracic stomach with air-fluid level. ACT 112: Positive. There are findings on this exam that require communication between the performing entity and the patient following Patient Test Result Information Act ([place] Act 112) guidelines. Electronically signed by: Armin Garcia M.D. 05/09/2022 3:01 PM Discharge Plan Visit Data Chief Complaint: Abdominal Pain ED Provider: Jeffrey William Discharge Problem: Abdominal mass, Colitis, Leukocytosis, Malignant melanoma of left lower leg Patient Disposition: Admitted As Inpatient Discharge Instructions Interventions: ED Discharge Assessment Last Done: 05/09/22 22:22
[2022-05-09] MEDS ORDERED: PIPERACILLIN/TAZOBACTAM 4.5 GM/120 ML BAG IV ONE (15:47)
--- NOTE | 2022-05-09 15:59 | History & Physical Report ---
Date of Service May 09, 2022 Assessment & Plan (1) Abdominal mass: Plan: - 27 lb unintentional weight loss over past 6 months with 1 week of worsening abdominal pain/bloating, nausea, vomiting, constipation. - WBC 26, lactate and procal pending. - Lipase 25. - CT A/P: * Hypodense infiltrative mass, measuring approximately 3 x 2.8 cm, likely arising from the uncinate process. 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 This is consistent with a neoplasm and pancreatic adenocarcinoma is a primary consideration. An infiltrative mesenteric mass could appear similar. GI consultation for consideration for EUS guided biopsy is recommended. * Wall thickening of the transverse colon with mild adjacent stranding. This suggests a nonspecific colitis. Venous ischemic colitis is within the differential given the SMV stenosis/occlusion. - There is a hypodense mass from the acute process of the pancreas causing SMV occlusion/stenosis. - Case and imaging reviewed by on-call lead mason tender, Dr. Fletcher, who we will consult during admission, current plan is to perform EUS as outpatient. - For now, NPO except with meds for bowel rest, provide pain meds and antiemetics, antibiotics for nonspecific colitis. (2) Colitis: Plan: - Management as above. 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 - Continues to follow with [facility]c. (4) Paroxysmal atrial fibrillation: Plan: - NSR. Continue metoprolol diltiazem, Eliquis. (5) Hypertension: Plan: - Continue metoprolol and diltiazem. (6) GERD (gastroesophageal reflux disease): Plan: - Continue PPI. (7) Hyperlipidemia: Plan: - Continue statin. (8) Hypokalemia: Plan: - Continue potassium supplementation. Plan - Admit to med/surg. -SCDs, Eliquis for VTE ppx. - DNR/DNI. History of Present Illness Chief Complaint: Nausea, vomiting, abdominal pain x1 week Primary Care Provider: Ralitsa V. Balabanova-Tsarnakov,MD Elaine Vasquez is an 86-year-old female with a past medical history significant for recurrent melanoma, A. fib RVR, iron deficiency anemia, pretension, and GERD who is presenting today for abdominal pain. The past week she has noticed more bloating in her upper abdomen associated with nausea and vomiting up to 4 times a day. She also been constipated, however notes she is taking iron supplements so is unsure if this is new for her. She took two enemas over the last 48 hours without any success. She also noted a 27 lb unintentional weight loss over the past 6 months. She has not noticed any night sweats or decreased appetite. Due to the severity of the pain today, presents for further evaluation. During stay in the ED, she has been moderately hypertensive and borderline tachycardic to low 100s, otherwise afebrile and SPO2 >92% on room air. Labs notable for WBC of 26 with left shift, AG 15, glucose 161, alk phos 110. No electrolyte abnormalities, impaired renal function or hepatic function. COVID-negative. Lipase 25. 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 Consistent with a neoplasm and pancreatic adenocarcinoma is primary consideration, and infiltrative mesenteric mass could appear similarly. There is also wall thickening of the transverse colon with mild adjacent stranding suggestive of nonspecific colitis, venous and symptomatic colitis is within the differential given SMV stenosis/occlusion. Also large hiatal hernia noted moderately distended partially visualized intrathoracic stomach with air-fluid level. Allergies Allergy/AdvReac Type Severity Reaction Status Date / Time nivolumab [From Opdivo] Allergy Severe Unknown Verified 05/09/22 16:58 shellfish derived Allergy Severe "violently Verified 05/09/22 16:58 sick" after eating lobster shrimp Allergy Intermediate VIOLENTLY Verified 05/09/22 16:58 SICK pseudoephedrine AdvReac Severe PASSED Verified 05/09/22 16:58 OUT, SPACEY iodine AdvReac Intermediate SICK TO Verified 05/09/22 16:58 STOMACH Penicillins AdvReac Intermediate SICK TO Verified 05/09/22 16:58 STOMACH propoxyphene AdvReac Intermediate HYPER Verified 05/09/22 16:58 tetanus toxoid, adsorbed AdvReac Intermediate "OUT OF Verified 05/09/22 16:58 ORBIT" Home Medications Medication Instructions Recorded Confirmed Type aspirin 81 mg tablet,delayed 81 mg PO DAILY #90 tabs 12/14/18 05/09/22 Rx release (Veena Low Dose Aspirin) biotin 1 mg tablet 1 mg PO DAILY 12/27/18 05/09/22 History cholecalciferol (vitamin D3) 25 1,000 units PO DAILY 12/27/18 05/09/22 History mcg (1,000 unit) tablet clindamycin HCl 150 mg capsule 150 mg PO DIRECTED PRN 1 HR 12/27/18 05/09/22 History PRIOR TO DENTAL PROCEDURES docusate sodium 100 mg capsule 100 mg PO HS 12/27/18 05/09/22 History triamcinolone acetonide 0.1 % 1 appln topical DIRECTED 11/04/19 05/09/22 History topical cream bimatoprost 0.01 % eye drops 1 drp ophthalmic (eye) DAILY 02/11/21 05/09/22 History (Poornimaigan) dorzolamide 22.3 mg-timolol 6.8 1 drp OPL BID 02/11/21 05/09/22 History mg/mL eye drops (Cosopt) diltiazem HCl 120 mg 120 mg PO DAILY #90 caps 06/26/21 05/09/22 Rx capsule,extended release 24 hr, controlled metoprolol tartrate 25 mg tablet 25 mg PO BID #180 tabs 07/08/21 05/09/22 Rx potassium chloride 10 mEq 10 meq PO DAILY #90 caps 07/26/21 05/09/22 Rx capsule,extended release diclofenac sodium 1 % topical gel 2 g topical QID 08/15/21 05/09/22 History (Arthritis Pain (diclofenac)) nepafenac 0.1 % eye 1 drp OPB DAILY 08/15/21 05/09/22 History drops,suspension (Nevanac) omeprazole 20 mg capsule,delayed 20 mg PO DAILY #90 caps 01/10/22 05/09/22 Rx release apixaban 2.5 mg tablet 2.5 mg PO BID 01/14/22 05/09/22 History fluticasone furoate 100 1 inh inhalation DAILY #60 ea 01/21/22 05/09/22 Rx mcg-vilanterol 25 mcg/dose inhalation powder (Breo Ellipta) Iron Infusion 0 dose IV DIRECTED PRN 05/09/22 05/09/22 History EXHAUSTION acetaminophen 650 mg 650 mg PO TID 05/09/22 05/09/22 History tablet,extended release aluminum hydrox-magnesium carb 160 1 tab PO HS 05/09/22 05/09/22 History mg-105 mg chewable tablet atorvastatin 10 mg tablet 10 mg PO HS 05/09/22 05/09/22 History diphenhydramine HCl 25 mg capsule 25 mg PO DIRECTED PRN 1 HR 05/09/22 05/09/22 History (Benadryl) PRIOR TO CT SCAN food supplemt, lactose-reduced 1 ea PO DAILY 05/09/22 05/09/22 History pembrolizumab 25 mg/mL intravenous 0 mg IV .Q3WK 05/09/22 05/09/22 History solution (Keytruda) prednisone 50 mg tablet 150 mg PO DIRECTED PRN 1 HR 05/09/22 05/09/[address]AN Past Med/Surg History Medical History Atrial fibrillation with rapid ventricular response Bigeminal rhythm Glaucoma Melanoma of lower leg Migraine Plantar fasciitis of right foot Tinnitus Surgical History History of back surgery History of melanoma excision History of neck surgery History of total hip replacement S/P cataract surgery S/P correction of deviated nasal septum S/P dilation and curettage S/P laser trabeculoplasty of eye Anterior chamber S/P tonsillectomy Family History Mother Breast cancer Brother Cancer Father Congestive heart failure Myocardial infarction Denies family history of Ovarian cancer Prostate cancer Colorectal cancer Social History Smoking Status: Former smoker Tobacco Type: Cigarettes Hx Alcohol Use: No (Limited socially) Hx Substance Use: No Preferred Language: Korean Communication Ability: Effective Visual Impairment: No Limitations Hearing Ability: Normal Assembler Skylights Required: No marital status: Current Living Situation: Spouse current occupational status: retired Feels Safe at Home: Yes Dental Care, Regularly: Yes Physical Activity Frequency: 3-4 Times per Week Physical Activity Frequency Comment: TREADMILL Seatbelt Use: always Sunscreen Use: Yes Review of Systems Review of Systems: Constitutional: No fever/chills, weakness, fatigue, myalgias, anorexia, night sweats Eyes: No diplopia, no worsening or blurred vision ENT: normal hearing, no trouble swallowing Respiratory: No cough, sputum, dyspnea at rest or on exertion Cardiovascular: No chest pain, tightness or palpitations Abdomen: 1 week of diffuse abdominal pain, nausea, non bloody vomiting, and constipation : Denies dysuria, hematuria, increased urgency/frequency, urinary retention Musculoskeletal: No joint pain, calf pain, swelling Neurologic: No weakness, numbness/tingling, or balance problems Psychiatric: No anxiety or depression Skin: No rash or itch Physical Exam Physical Exam: General: awake, alert, no apparent distress Head: Normocephalic, atraumatic ENT: PERRL, EOMI, no pharyngeal exudate, mucous membranes moist Chest: Clear to auscultation, on room air, no adventitious breath sounds Cardiac: Regular rate and rhythm, no murmur, no JVD, normal peripheral pulses, good capillary refill Abdominal: mildly TTP throughout abdomen without rebound or guarding; NABS x 4 quadrants, soft Extremities: Normal inspection, no peripheral edema or erythema, calfs nontender to palpation Psych: Normal mood and affect Neuro: AAO x 3, strength intact bilaterally and rated 5/5, no motor deficits, speech is clear, no peripheral sensory deficits Skin: no rash or erythema Results & Data Results & Data ([facility]) Vital Signs (Past 12 Hours) Vital Signs Temp Pulse Resp BP Pulse Ox O2 Del Method 05/09/22 15:30 83 23 05/09/22 15:30 160/84 H 05/09/22 15:00 78 20 05/09/22 15:00 159/82 H 05/09/22 14:30 85 24 05/09/22 14:30 119/82 05/09/22 14:17 169/60 H 05/09/22 14:17 87 23 94 05/09/22 14:00 84 22 05/09/22 14:00 167/80 H 05/09/22 13:30 85 24 94 05/09/22 13:00 96 H 23 93 05/09/22 12:49 177/84 H 05/09/22 12:49 103 H 24 93 05/09/22 12:30 102 H 23 93 05/09/22 12:28 103 H 18 94 05/09/22 12:11 20 05/09/22 12:11 36.6 C 90 19 170/91 H 99 Room Air Laboratory Results Abnormal lab results 05/09/22 05/09/22 Range/Units 12:42 12:42 WBC 26.19 H (4.8-10.8) K/ul MCH 24.9 L (25.0-34.0) pg MCHC 31.2 L (32.0-36.0) g/dL RDW Std Deviation 58.4 H (36.4-46.3) fL RDW Coeff of Pawan 21.5 H (11.5-14.5) % Neut # (Auto) 22.70 H (1.4-6.5) K/uL [place] # (Auto) 1.31 H (0.24-0.82) K/uL Immature Gran # (Auto) 0.14 H (0.00-0.02) K/uL Anion Gap 15 H (3-11) BUN 30 H (6-23) mg/dl BUN/Creatinine Ratio 33.3 H (10-20) Glucose 161 H (70-99(Fasting)) mg/dl Alkaline Phosphatase 110 H (34-104) U/L Diagnostic Findings Abdomen/Pelvis CT 05/09/22 12:40 CT OF THE ABDOMEN AND PELVIS WITH CONTRAST CLINICAL HISTORY: Abdominal pain and nausea. COMPARISON STUDY: Right upper quadrant ultrasound March 08, 2021. PET/CT January 07, 2021. TECHNIQUE: Following IV administration of 89 mL of Optiray, axial images of the abdomen and pelvis were obtained from the lung bases to the proximal femurs. Images were reviewed in the axial, sagittal, and coronal planes. IV contrast was administered without complication. Automated exposure control was utilized for the study. A dose lowering technique was utilized adhering to the principles of ALARA. CT DOSE: 240.90 mGy.cm FINDINGS: A large hiatal hernia with partially intrathoracic stomach is par tially imaged on this exam. Intrathoracic portion of the stomach is moderately distended with air-fluid level. No pneumatosis, free air or portal venous gas is present. Ground glass opacities within the right lower lungs favor atelectasis. A large right renal cyst measuring 13 cm is noted. A few smaller renal cysts are present. There are multiple hepatic cysts. There is no hydronephrosis. The adre nal glands are unremarkable. Note is made of a subtle hypodense mass likely arising from the uncinate process of the pancreas on axial image 173 of 391. This measures approximately 3 x 2.8 cm. 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 There is no biliary or pancreatic ductal dilatation. No peripancreatic or pericholecystic stranding is noted. There is no evidence for a bowel obstruction. The appendix is not visualized. There is a moderate amount of stool within the transverse colon. Wall thickening of the transverse colon with mild adjacent stranding is present. There is no abscess. A pessary device is in place. There is no free fluid. No abscess is present. Right hip arthroplasty and postoperative findings within the spine are present. The caliber of the abdominal aorta is normal. The celiac axis is patent. 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 No acute fractures within the lumbar spine, pelvis or hips are identified. IMPRESSION: 1. Hypodense infiltrative mass, measuring approximately 3 x 2.8 cm, likely arising from the uncinate process. 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 This is consistent with a neoplasm and pancreatic adenocarcinoma is a primary consideration. An infiltrative mesenteric mass could appear similar. GI consultation for consideration for EUS guided biopsy is recommended. 2. Wall thickening of the transverse colon with mild adjacent stranding. This suggests a nonspecific colitis. Venous ischemic colitis is within the differential given the SMV stenosis/occlusion. 3. Large hiatal hernia. Moderately distended partially visualized intrathoracic stomach with air-fluid level. ACT 112: Positive. There are findings on this exam that require communication between the performing entity and the patient following Patient Test Result Information Act ([place] Act 112) guidelines. Electronically signed by: Armin Garcia M.D. 05/09/2022 3:01 PM ECG Additional Comments: Poor data quality, interpretation may be adversely affected Normal sinus rhythm Normal ECG When compared with ECG of 07-JUN-2014 11:31, No significant change was found. Code Status & VTE Plan Code Status DNR/DNI. Supervising Physician Co-Signing Physician Notes Patient was seen and examined independently I discussed the case with Ayana Kelly PAC I reviewed pertinent past medical social family history and also the plan of care and agree with the plan of care. Patient presents with abdominal pain, found to have a possible pancreatic mass with some superior mesenteric vein compression. Patient is with discomfort when she moves about mostly has been having some challenges with bowel movements at home. Urgency medicine physician spoke to interventional gastroenterology who feels that they may pursue an endoscopy for biopsy likely sometime after the holiday. She is comfortable exam she is mildly confused but I woke her from sleep we will continue supportive care pain control gastroenterology consultation Any exceptions will be noted below PG Care Time/CCT Total # of Minutes Spent Total Time Spent with Patient: Total time spent is greater than 50% in coordination of care (as documented) at patient's floor/unit and/or counseling patient: Coding Level of Care Code 79726 Initial Inpt Care Lvl 3 Diagnoses Abdominal mass R19.00 Colitis K52.9 Malignant melanoma of left lower leg C43.72 Paroxysmal atrial fibrillation I48.0 Hypertension I10 GERD (gastroesophageal reflux disease) K21.9 Hyperlipidemia E78.5 Hypokalemia E87.6
[2022-05-09] MEDS: SODIUM CHLORIDE 0.9% 1000ML 1,000 ML IV SCH (17:12)
[2022-05-09 17:23] LABS: Appearance Urine Clear (Clear); Bacteria Urine Automated 1+ (Negative); Bilirubin Urine Negative (Negative); Blood Urine Trace (Negative); Color Urine Yellow; Epithelial Cell Urine Auto >30 /lpf (0-5); Glucose Urine UA Negative (Negative); Ketones Urine Negative (Negative); Leukocyte Esterase Urine Trace (Negative); Nitrite Urine Negative (Negative); Protein Urine 1+ (Negative); RBC Urine Automated 0-4 /hpf (0-4); Specific Gravity Urine > 1.045 (1.000-1.030); Urobilinogen Urine Negative (Negative); WBC Urine Automated >30 /hpf (0-5)
[2022-05-09] MEDS ORDERED: ONDANSETRON INJ 2 MG/ML 2 ML VIAL IV PRN (18:43)
[2022-05-09] MEDS ORDERED: DOCUSATE SODIUM 100 MG CAP PO PRN (18:43)
[2022-05-09] MEDS: LACTATED RINGER'S 1,000 ML IV SCH (19:55)
[2022-05-09] MEDS: TRIAMCINOLONE ACET 0.1% CR 15 GM TUBE TOP SCH ×2 (20:55→21:03)
[2022-05-09] MEDS: ATORVASTATIN 10 MG TAB PO SCH (20:56)
[2022-05-09] MEDS: DORZOLAMIDE/TIMOLOL 22.3/6.8MG/ML 10 ML BTL OP SCH (20:56)
[2022-05-09] MEDS: APIXABAN 2.5 MG TAB PO SCH (20:56)
[2022-05-09] MEDS: METOPROLOL TARTRATE 25 MG TAB PO SCH (21:15)
--- NOTE | 2022-05-09 22:56 | Electrocardiogram Report ---
Test Reason : Blood Pressure : / mmHG Vent. Rate : 091 BPM Atrial Rate : 091 BPM P-R Int : 166 ms QRS Dur : 084 ms QT Int : 380 ms P-R-T Axes : 057 055 067 degrees QTc Int : 467 ms Poor data quality, interpretation may be adversely affected Normal sinus rhythm Normal ECG When compared with ECG of 07-JUN-2014 11:31, No significant change was found Confirmed by Jose Song ([id number]) on 05/09/2022 10:56:22 PM Referred By: REFERRED SELF Confirmed By:Jose Song
[2022-05-10] MEDS: SODIUM CHLORIDE 0.9% 1000ML 1,000 ML IV SCH (01:13)
[2022-05-10] MEDS: PIPERACILLIN/TAZOBACTAM 3.375 GM in DEXTROSE 5% 100 ML IV SCH ×3 (01:51→17:45)
[2022-05-10] MEDS: LACTATED RINGER'S 1,000 ML IV SCH ×3 (05:21→21:11)
[2022-05-10 08:53] LABS: Basophils # (auto) 0.03 K/uL (0-0.2); Basophils % (auto) 0.2 %; Hematocrit (blood only) 31.6 % (34.1-44.9); Hemoglobin 9.9 g/dl (12.0-16.0); Immature Granulocytes # (auto) 0.09 K/uL (0.00-0.02); Immature Granulocytes % (auto) 0.5 %; Lymphocytes # (auto) 1.34 K/uL (1.2-3.4); Lymphocytes % (auto) 6.8 %; Mean Corpuscular Hemoglobin 24.8 pg (25.0-34.0); Mean Corpuscular Hgb Conc 31.3 g/dL (32.0-36.0); Mean Corpuscular Volume 79.2 fL (80.0-100.0); Mean Platelet Volume 9.7 fL (9.4-12.3); Monocytes # (auto) 0.71 K/uL (0.24-0.82); Monocytes % (auto) 3.6 %; Neutrophils # (auto) 17.64 K/uL (1.4-6.5); Neutrophils % (auto) 88.9 %; Platelet Count 328 K/uL (130-400); RDW Standard Deviation 58.5 fL (36.4-46.3); Red Blood Count 3.99 M/uL (3.93-5.22); White Blood Count 19.81 K/ul (4.8-10.8)
[2022-05-10] MEDS ORDERED: CHOLECALCIFEROL 1,000 UNITS 25 MCG TAB PO SCH (09:00)
[2022-05-10 09:17] LABS: Anisocytosis Present
[2022-05-10 09:19] LABS: Albumin Level 3.2 gm/dl (3.4-5.0); BUN Creatinine Ratio 38.9 (10-20); Bilirubin,Total 0.6 mg/dl (0.2-1.0); Calcium 8.9 mg/dl (8.5-10.1); Creatinine Clr Calc Pharmacy 39.5 ml/min; Est GFR (African American) 89.1 ml/min; Est GFR (Non-African American) 76.9 ml/min; Globulin 3.2 gm/dl (2.5-4.0); Magnesium 2.1 mg/dl (1.7-2.4); Potassium 3.4 mmol/L (3.5-5.1); Total Protein 6.4 gm/dl (6.0-8.3)
[2022-05-10] MEDS: FLUTICASONE/VILANTEROL 100/25MCG 14 PUFFS/INHALER INH SCH (09:45)
[2022-05-10] MEDS: METOPROLOL TARTRATE 25 MG TAB PO SCH ×2 (09:46→21:03)
[2022-05-10] MEDS: TRIAMCINOLONE ACET 0.1% CR 15 GM TUBE TOP SCH ×2 (09:46→13:19)
[2022-05-10] MEDS: ASPIRIN 81 MG ECTAB PO SCH (09:46)
[2022-05-10] MEDS: PANTOprazole 40 MG TAB PO SCH (09:46)
[2022-05-10] MEDS: dilTIAZem HCL 120 MG CAPCR PO SCH (09:46)
[2022-05-10] MEDS: APIXABAN 2.5 MG TAB PO SCH (09:46)
[2022-05-10] MEDS: POTASSIUM CHLORIDE 10 MEQ TABCR PO SCH (09:46)
[2022-05-10] MEDS: DORZOLAMIDE/TIMOLOL 22.3/6.8MG/ML 10 ML BTL OP SCH ×2 (09:47→21:02)
[2022-05-10] MEDS: BIMATOPROST 0.01% OP SOLN 2.5 ML BTL OP SCH (09:47)
--- NOTE | 2022-05-10 10:33 | Hospitalist Progress Note ---
Date of Service May 10, 2022 Assessment & Plan (1) Abdominal pain: Plan: Patient presents with 27 lb unintentional weight loss over past 6 months while undergoing chemotherapy for her melanoma, but most of the weight loss came in the last few weeks. Having epigastric abdominal pain off and on for many months, but presented with 1 week of significantly worsening abdominal pain/bloating, nausea, vomiting, and constipation. On admission, with WBC 26, lactate elevated at 3.5, procalcitonin elevated at 12 She was afebrile LFTs and lipase are normal CT A/P showed: * Hypodense infiltrative mass, measuring approximately 3 x 2.8 cm, likely arising from the uncinate process. 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 This is consistent with a neoplasm and pancreatic adenocarcinoma is a primary consideration. An infiltrative mesent jessa mass could appear similar. GI consultation for consideration for EUS guided biopsy is recommended. * Wall thickening of the transverse colon with mild adjacent stranding. This suggests a nonspecific colitis. Venous ischemic colitis is within the differential given the SMV stenosis/occlusion. * Large hiatal hernia. Moderately distended partially visualized intrathoracic stomach with air-fluid level. Abdominal pain and nausea/vomiting could be secondary to very large hiatal hernia, plus the transverse colitis and also could be related to the pancreatic mass and SMV stenosis or occlusion Lactic acidosis now resolved with IV fluids. There is no portal venous gas or pneumatosis noted on CT Appreciate GI consultation Repeat KUB on 05/10 and chest x-ray again show hiatal hernia and a moderate amount of stool in the large bowel but no obstruction Her abdominal pain and nausea is slightly improved since admission. Still having some waves of severe pain especially with movement. As per my discussion with GI, there is no role for vascular intervention for the near/complete occlusion of the SMV. Anatomically, occlusion of this could potentially cause the transverse colitis. The pancreatic mass certainly could be a pancreatic cancer. Alternatively, perhaps metastatic disease from her known metastatic melanoma? Leukocytosis improving Started IV Zosyn on admission -Cautiously advance diet to clear liquids as per GI -Low threshold to place NG tube if continues to vomit given large hiatal hernia- would decompress this -Add IV Tylenol as needed for mild to moderate pain and add low-dose IV Dilaudid as needed for moderate to severe pain -Continue IV fluid hydration with LR but lowered to 100 mL/h to avoid volume overload -Continue IV Zosyn for colitis -Needs EUS for biopsy of pancreatic mass which can potentially be done as an inpatient early next week when advanced endoscopist is available (2) Hiatal hernia: Plan: As above, large (3) Colitis: Plan: - Management as above. 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 - Continues to follow with [facility]. (6) Anemia: Plan: Hemoglobin hemoconcentrated on admission and today is at her baseline at 9.9 Had an IV iron infusion with her oncologist at [facility] several weeks ago Follow CBC, no evidence of blood loss at this time Could be related to ongoing chemotherapy with melanoma versus occult GI blood loss-perhaps Laith ulcers from large hiatal hernia? She cannot recall that she has ever had a colonoscopy Plan for EGD/EUS hopefully early next week (7) Elevated troponin: Plan: Troponin checked on 05/10 due to epigastric pain and nausea/vomiting and found to be elevated at 237 Repeat up slightly to 278 Most likely myocardial demand ischemia secondary to GI issues and abdominal pain with nausea/vomiting, colitis as above ECG without ischemic changes Check echocardiogram for wall motion abnormalities Continue to trend serial troponin until peaks No known underlying CAD Remains on aspirin and statin (8) UTI (urinary tract infection): Plan: Urinalysis somewhat contaminated but could be UTI Zosyn for colitis will cover for UTI Follow urine culture (9) Superior mesenteric artery stenosis: Plan: Noted to have moderate to severe SMA stenosis with calcified plaque on CT Continue aspirin, statin Not causing acute issues (10) Glaucoma: Plan: Continue home eyedrops (11) Paroxysmal atrial fibrillation: Plan: - Remains in NSR on examination and by EKG on admission. -Continue metoprolol and diltiazem -Hold home Eliquis now and start therapeutic Lovenox 40 Mg SQ twice daily in preparation for upcoming EUS -Hold Lovenox 24 hours prior to EUS (12) Hypertension: Plan: Blood pressures are mildly elevated likely secondary to pain - Continue home metoprolol and diltiazem. (13) Osteopenia: Plan: Hold home vitamin D (14) Transient cerebral ischemia: Plan: Continue home aspirin, statin History of TIA (15) Hypokalemia: Plan: Continue daily potassium chloride Monitor BMP, magnesium (16) Hyperlipidemia: Plan: - Continue statin. (17) GERD (gastroesophageal reflux disease): Plan: - Continue PPI. Plan DVT prophylaxis-therapeutic Lovenox Disposition-continued stay on med/surg. DNR/DNI Discussed her care at the bedside with her and son later in the day. Admission and Anticipated Discharge Date Admission Date: May 09, 2022 Subjective Patient seen on 2 occasions today. Initially in the morning she was still having some stronger upper and milder diffuse abdominal pain, no further vomiting but occasional gagging and dry heaving. Denies any melena or hematochezia, no hematemesis. Denies chest pain or shortness of breath. I discussed all of her findings on testing with her and then later again in the day with her and son at the bedside. I also discussed her care with a sole rounding machine operator. Review of Systems Review of Systems: All systems reviewed & are unremarkable except as noted in HPI & below Physical Exam Constitutional: WD/WN, vitals as above Appears thinner than usual-I have known her for 28 years Eyes: + anicteric sclerae ENMT: external ear and nose normal, oropharynx normal Neck: trachea midline, no thyromegaly Respiratory: normal respiratory effort, lungs clear to auscultation Cardiovascular: RRR, no murmur, no edema Chest (Breasts): Chest: normal inspection of chest Gastrointestinal (Abdomen): Inspection/Auscultation: abdomen normal to inspection and normal bowel sounds; abdomen not distended Percussion/Palpatio n: + abdomen tender (Diffusely tender but more so in RLQ and epigastric region) and abdomen soft; no guarding, abdomen not rigid, no hernia and no abdominal mass Musculoskeletal: Extremities: extremities normal to inspection; no cyanosis and no clubbing Skin: no rashes, warm and dry Neurologic: moves all extremities and awake; no focal motor deficits Psychiatric: A+Ox3, euthymic affect Lymphatic: no lymphedema Results & Data Results & Data ([facility]) Vital Signs (Past 12 Hours) Vital Signs Temp Pulse Pulse Resp BP Pulse Ox O2 Del Method 05/10/22 09:32 37.1 C 81 16 178/81 H 92 Room Air 05/10/22 07:35 36.9 C 75 16 180/80 H 91 Room Air Laboratory Results 05/10/22 05/10/22 05/10/22 Range/Units 14:27 09:19 08:09 WBC (4.8-10.8) K/ul RBC (3.93-5.22) M/uL Hgb (12.0-16.0) g/dl Hct (34.1-44.9) % MCV (80.0-100.0) fL MCH (25.0-34.0) pg MCHC (32.0-36.0) g/dL RDW Std Deviation (36.4-46.3) fL RDW Coeff of Pawan (11.5-14.5) % Plt Count (130-400) K/uL MPV (9.4-12.3) fL Immature Gran % (Auto) % Neut % (Auto) % Lymph % (Auto) % Tompkins % (Auto) % Eos % (Auto) % Baso % (Auto) % Neut # (Auto) (1.4-6.5) K/uL Lymph # (Auto) (1.2-3.4) K/uL Tompkins # (Auto) (0.24-0.82) K/uL Eos # (Auto) (0-0.50) K/uL Baso # (Auto) (0-0.2) K/uL Immature Gran # (Auto) (0.00-0.02) K/uL Anisocytosis Sodium (136-145) mmol/L Potassium (3.5-5.1) mmol/L Chloride (98-107) mmol/L Carbon Dioxide (21-32) mmol/L Anion Gap (3-11) BUN (6-23) mg/dl Creatinine (0.6-1.2) mg/dl Est Cr Clr Drug Dosing ml/min Est GFR ( Amer) ml/min Est GFR (Non-Af Amer) ml/min BUN/Creatinine Ratio (10-20) Glucose (70-99(Fasting)) mg/dl Lactate 2.0 (0.4-2.0) mmol/L Calcium (8.5-10.1) mg/dl Magnesium (1.7-2.4) mg/dl Total Bilirubin (0.2-1.0) mg/dl AST (13-39) U/L ALT (7-52) U/L Alkaline Phosphatase (34-104) U/L Troponin I High Sens 278.9 H* 237.4 H* (0-14) pg/ml Total Protein (6.0-8.3) gm/dl Albumin (3.4-5.0) gm/dl Globulin (2.5-4.0) gm/dl Albumin/Globulin Ratio (0.9-2) Lipase (11-82) U/L 05/10/22 05/10/22 05/09/22 Range/Units 08:09 08:09 19:29 WBC 19.81 H (4.8-10.8) K/ul RBC 3.99 (3.93-5.22) M/uL Hgb 9.9 L (12.0-16.0) g/dl Hct 31.6 L (34.1-44.9) % MCV 79.2 L (80.0-100.0) fL MCH 24.8 L (25.0-34.0) pg MCHC 31.3 L (32.0-36.0) g/dL RDW Std Deviation 58.5 H (36.4-46.3) fL RDW Coeff of Pawan 21.0 H (11.5-14.5) % Plt Count 328 (130-400) K/uL MPV 9.7 (9.4-12.3) fL Immature Gran % (Auto) 0.5 % Neut % (Auto) 88.9 % Lymph % (Auto) 6.8 % Tompkins % (Auto) 3.6 % Eos % (Auto) 0.0 % Baso % (Auto) 0.2 % Neut # (Auto) 17.64 H (1.4-6.5) K/uL Lymph # (Auto) 1.34 (1.2-3.4) K/uL Tompkins # (Auto) 0.71 (0.24-0.82) K/uL Eos # (Auto) 0.00 (0-0.50) K/uL Baso # (Auto) 0.03 (0-0.2) K/uL Immature Gran # (Auto) 0.09 H (0.00-0.02) K/uL Anisocytosis Present Sodium 141 (136-145) mmol/L Potassium 3.4 L (3.5-5.1) mmol/L Chloride 103 (98-107) mmol/L Carbon Dioxide 30 (21-32) mmol/L Anion Gap 8 (3-11) BUN 28 H (6-23) mg/dl Creatinine 0.72 (0.6-1.2) mg/dl Est Cr Clr Drug Dosing 39.5 ml/min Est GFR ( Amer) 89.1 ml/min Est GFR (Non-Af Amer) 76.9 ml/min BUN/Creatinine Ratio 38.9 H (10-20) Glucose 105 H (70-99(Fasting)) mg/dl Lactate 3.5 H* (0.4-2.0) mmol/L Calcium 8.9 (8.5-10.1) mg/dl Magnesium 2.1 (1.7-2.4) mg/dl Total Bilirubin 0.6 (0.2-1.0) mg/dl AST 26 (13-39) U/L ALT 24 (7-52) U/L Alkaline Phosphatase 88 (34-104) U/L Troponin I High Sens (0-14) pg/ml Total Protein 6.4 (6.0-8.3) gm/dl Albumin 3.2 L (3.4-5.0) gm/dl Globulin 3.2 (2.5-4.0) gm/dl Albumin/Globulin Ratio 1.0 (0.9-2) Lipase 14 (11-82) U/L PG Care Time/CCT Total # of Minutes Spent Total Time Spent with Patient: Total time spent is greater than 50% in coordination of care (as documented) at patient's floor/unit and/or counseling patient: Coding Level of Care Code 07470 Subseq Hosp Care Lvl 3 Diagnoses Abdominal pain R10.9 Hiatal hernia K44.9 Colitis K52.9 Pancreatic mass K86.89 Malignant melanoma of left lower leg C43.72 Anemia D64.9 Elevated troponin R77.8 UTI (urinary tract infection) N39.0 Superior mesenteric artery stenosis K55.1 Glaucoma H40.9 Paroxysmal atrial fibrillation I48.0 Hypertension I10 Osteopenia M85.80 Transient cerebral ischemia G45.9 Hypokalemia E87.6 Hyperlipidemia E78.5 GERD (gastroesophageal reflux disease) K21.9
--- NOTE | 2022-05-10 12:29 | XRay Report ---
XR chest 1V portable CLINICAL HISTORY: eval hiatal hernia TECHNIQUE: Single frontal radiograph of the chest was obtained. Comparison: None available at the time of this dictation. FINDINGS: No lines and tubes are seen. The cardiomediastinal silhouette is normal. The lungs are clear. Moderat e hiatal hernia is seen. IMPRESSION: Moderate hiatal hernia. Otherwise no acute abnormalities. ACT 112: Negative or not required by law. Electronically signed by: Pedro Kirk M.D. 05/10/2022 12:27 PM
--- NOTE | 2022-05-10 12:39 | XRay Report ---
XR KUB/Abdomen 1 view CLINICAL HISTORY: eval hiatal hernia TECHNIQUE: 1 view of the abdomen was obtained. Comparison: Comparison is made to CT abdomen pelvis 05/09/2022 FINDINGS: Posterior fixation hardware is seen in the spine and scoliosis is noted. There is a right hip total a rthroplasty. A hiatal hernia is partially visualized. The bowel gas pattern is nonobstructive. A mode rate amount of stool is noted within the large bowel. IMPRESSION: A hiatal hernia is seen. ACT 112: Negative or not required by law. Electronically signed by: Pedro Kirk M.D. 05/10/2022 12:37 PM
--- NOTE | 2022-05-10 12:43 | Gastrointestinal Consultation ---
Date of Consultation May 10, 2022 History of Present Illness Attending Physician: Geraldine Cardoza MD History of Present Illness 86-year-old female with a past medical history significant for recurrent melanoma admit with complaints of several month history of diffuse abdominal pain, difficulty tolerating PO due to nausea and worsening pain, and weight loss. Her prior imaging includes a PET CT from 01/05 which shows ? uptake in duodenum, and EUS in 05/07 which showed 7 cm HH and no evidence of panc mass. 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 WBC increased to 26 with recent prednisone use. On Zosyn, Eliquis, NPO. Overnight, WBC decreased, VS remain stable, no vomiting. At present, she is reports the same chronic abdominal pain that she has had, as well as nausea. She is hungry but mildly to eat. PE: When first examined, she is walking with therapist in [place]. She appears comfortable, thin, frail. HEENT: dry, pink CV: RRR Resp: CTA Abd: soft, mild diffuse tenderness without distention Labs reviewed - Hgb 10, WBC 19. CXR shows gastric air bubble in chest A/P: H/o melanoma Large HH with stomach that is entirely intra-thoracic, AF level and stomach dis tention on imaging ? Panc mass, splenic vein thrombosis - Her chronic nausea and abdominal pain, intolerance to PO seem more likely related to HH, although it may be possible that she has pain related to a pancreatic malignancy. - She may have SMV thrombosis, but does not had radiographic evidence of small bowel ischemia. Recs: - Begin clears. - She does not have evidence of acute gastric volvulus - defer NGT or endoscopy at this time. - Panc protocol CT next week. - Surg consult - is pt candidate for surgical PEG tube? Allergies Allergy/AdvReac Type Severity Reaction Status Date / Time nivolumab [From Opdivo] Allergy Severe Unknown Verified 05/09/22 16:58 shellfish derived Allergy Severe "violently Verified 05/09/22 16:58 sick" after eating lobster shrimp Allergy Intermediate VIOLENTLY Verified 05/09/22 16:58 SICK pseudoephedrine AdvReac Severe PASSED Verified 05/09/22 16:58 OUT, SPACEY iodine AdvReac Intermediate SICK TO Verified 05/09/22 16:58 STOMACH Penicillins AdvReac Intermediate SICK TO Verified 05/09/22 16:58 STOMACH propoxyphene AdvReac Intermediate HYPER Verified 05/09/22 16:58 tetanus toxoid, adsorbed AdvReac Intermediate "OUT OF Verified 05/09/22 16:58 ORBIT" Home Medications Medication Instructions Recorded Confirmed Type aspirin 81 mg tablet,delayed 81 mg PO DAILY #90 tabs 12/14/18 05/09/22 Rx release (Veena Low Dose Aspirin) biotin 1 mg tablet 1 mg PO DAILY 12/27/18 05/09/22 History cholecalciferol (vitamin D3) 25 1,000 units PO DAILY 12/27/18 05/09/22 History mcg (1,000 unit) tablet clindamycin HCl 150 mg capsule 150 mg PO DIRECTED PRN 1 HR 12/27/18 05/09/22 History PRIOR TO DENTAL PROCEDURES docusate sodium 100 mg capsule 100 mg PO HS 12/27/18 05/09/22 History triamcinolone acetonide 0.1 % 1 appln topical DIRECTED 11/04/19 05/09/22 History topical cream bimatoprost 0.01 % eye drops 1 drp ophthalmic (eye) DAILY 02/11/21 05/09/22 History (German) dorzolamide 22.3 mg-timolol 6.8 1 drp OPL BID 02/11/21 05/09/22 History mg/mL eye drops (Cosopt) diltiazem HCl 120 mg 120 mg PO DAILY #90 caps 06/26/21 05/09/22 Rx capsule,extended release 24 hr, controlled metoprolol tartrate 25 mg tablet 25 mg PO BID #180 tabs 07/08/21 05/09/22 Rx potassium chloride 10 mEq 10 meq PO DAILY #90 caps 07/26/21 05/09/22 Rx capsule,extended release diclofenac sodium 1 % topical gel 2 g topical QID 08/15/21 05/09/22 History (Arthritis Pain (diclofenac)) nepafenac 0.1 % eye 1 drp OPB DAILY 08/15/21 05/09/22 History drops,suspension ([place]) omeprazole 20 mg capsule,delayed 20 mg PO DAILY #90 caps 01/10/22 05/09/22 Rx release apixaban 2.5 mg tablet 2.5 mg PO BID 01/14/22 05/09/22 History fluticasone furoate 100 1 inh inhalation DAILY #60 ea 01/21/22 05/09/22 Rx mcg-vilanterol 25 mcg/dose inhalation powder (Breo Ellipta) Iron Infusion 0 dose IV DIRECTED PRN 05/09/22 05/09/22 History EXHAUSTION acetaminophen 650 mg 650 mg PO TID 05/09/22 05/09/22 History tablet,extended release aluminum hydrox-magnesium carb 160 1 tab PO HS 05/09/22 05/09/22 History mg-105 mg chewable tablet atorvastatin 10 mg tablet 10 mg PO HS 05/09/22 05/09/22 History diphenhydramine HCl 25 mg capsule 25 mg PO DIRECTED PRN 1 HR 05/09/22 05/09/22 History (Benadryl) PRIOR TO CT SCAN food supplemt, lactose-reduced 1 ea PO DAILY 05/09/22 05/09/22 History pembrolizumab 25 mg/mL intravenous 0 mg IV .Q3WK 05/09/22 05/09/22 History solution (Keytruda) prednisone 50 mg tablet 150 mg PO DIRECTED PRN 1 HR 05/09/22 05/09/[address]AN Patient History Medical History Atrial fibrillation with rapid ventricular response Bigeminal rhythm Glaucoma Melanoma of lower leg Migraine Plantar fasciitis of right foot Tinnitus Surgical History History of back surgery History of melanoma excision History of neck surgery History of total hip replacement S/P cataract surgery S/P correction of deviated nasal septum S/P dilation and curettage S/P laser trabeculoplasty of eye Anterior chamber S/P tonsillectomy Family History Mother Breast cancer Brother Cancer Father Congestive heart failure Myocardial infarction Denies family history of Ovarian cancer Prostate cancer Colorectal cancer Social History Smoking Status: Former smoker Tobacco Type: Cigarettes Second Hand Exposure: No; Do You Dip or Chew Tobacco: No; Tobacco Cessation Education Requested by Patient: No Hx Alcohol Use: No Hx Substance Use: No Preferred Language: Vietnamese Communication Ability: Effective Visual Impairment: No Limitations Hearing Ability: Normal Skirt Panel Assembler Required: Yes Beliefs That Will Affect Care: None marital status: Current Living Situation: Spouse Current Living Situation Comment: cats current occupational status: retired Other Information That Helps Us Care for You: No Feels Safe at Home: Yes Safety Concerns: Feels Safe At This Time Dental Care, Regularly: Yes Physical Activity Frequency: 3-4 Times per Week Physical Activity Frequency Comment: TREADMILL Seatbelt Use: always Sunscreen Use: Yes Results & Data ([facility]) Vital Signs (Past 12 Hours) Vital Signs Temp Pulse Pulse Resp BP Pulse Ox O2 Del Method 05/10/22 09:32 37.1 C 81 16 178/81 H 92 Room Air 05/10/22 07:35 36.9 C 75 16 180/80 H 91 Room Air
[2022-05-10] MEDS: NEVANAC 0.1% OP SCH (21:01)
[2022-05-10] MEDS: ENOXAPARIN INJ 40 MG/0.4 ML SYR SQ SCH (21:03)
[2022-05-10] MEDS: ATORVASTATIN 10 MG TAB PO SCH (21:03)
[2022-05-11] MEDS: PIPERACILLIN/TAZOBACTAM 3.375 GM in DEXTROSE 5% 100 ML IV SCH ×2 (00:36→10:46)
[2022-05-11] MEDS: LACTATED RINGER'S 1,000 ML IV SCH ×2 (06:18→16:01)
[2022-05-11 07:46] LABS: Basophils # (auto) 0.01 K/uL (0-0.2); Basophils % (auto) 0.1 %; Hematocrit (blood only) 27.7 % (34.1-44.9); Hemoglobin 8.6 g/dl (12.0-16.0); Immature Granulocytes # (auto) 0.09 K/uL (0.00-0.02); Immature Granulocytes % (auto) 0.5 %; Lymphocytes # (auto) 1.01 K/uL (1.2-3.4); Lymphocytes % (auto) 5.9 %; Mean Corpuscular Hemoglobin 24.4 pg (25.0-34.0); Mean Corpuscular Volume 78.7 fL (80.0-100.0); Mean Platelet Volume 9.8 fL (9.4-12.3); Monocytes # (auto) 0.59 K/uL (0.24-0.82); Monocytes % (auto) 3.5 %; Neutrophils # (auto) 15.28 K/uL (1.4-6.5); Platelet Count 296 K/uL (130-400); RDW Coefficient of Variation 20.8 % (11.5-14.5); Red Blood Count 3.52 M/uL (3.93-5.22); White Blood Count 16.98 K/ul (4.8-10.8)
[2022-05-11 08:07] LABS: Anisocytosis Present
[2022-05-11 08:14] LABS: Albumin Globulin Ratio 0.9 (0.9-2); Albumin Level 2.8 gm/dl (3.4-5.0); BUN Creatinine Ratio 37.9 (10-20); Bilirubin,Total 0.6 mg/dl (0.2-1.0); Calcium 8.3 mg/dl (8.5-10.1); Est GFR (African American) 98.1 ml/min; Est GFR (Non-African American) 84.6 ml/min; Magnesium 1.8 mg/dl (1.7-2.4); Potassium 2.7 mmol/L (3.5-5.1); Total Protein 5.8 gm/dl (6.0-8.3)
[2022-05-11] MEDS: METOPROLOL TARTRATE 25 MG TAB PO SCH ×2 (10:31→20:19)
[2022-05-11] MEDS: ASPIRIN 81 MG ECTAB PO SCH (10:32)
[2022-05-11] MEDS: PANTOprazole 40 MG TAB PO SCH (10:32)
[2022-05-11] MEDS: DORZOLAMIDE/TIMOLOL 22.3/6.8MG/ML 10 ML BTL OP SCH ×2 (10:33→20:19)
[2022-05-11] MEDS: dilTIAZem HCL 120 MG CAPCR PO SCH (10:33)
[2022-05-11] MEDS: BIMATOPROST 0.01% OP SOLN 2.5 ML BTL OP SCH (10:34)
[2022-05-11] MEDS: ENOXAPARIN INJ 40 MG/0.4 ML SYR SQ SCH ×2 (10:35→20:19)
[2022-05-11] MEDS: FLUTICASONE/VILANTEROL 100/25MCG 14 PUFFS/INHALER INH SCH (10:35)
[2022-05-11] MEDS: POTASSIUM CHLORIDE 10 MEQ TABCR PO SCH (11:43)
--- NOTE | 2022-05-11 14:59 | Gastroenterology Progress Note ---
Date of Service May 11, 2022 Assessment & Plan Admission and Anticipated Discharge Date Admission Date: May 09, 2022 Subjective No new complaints from yesterday. Abd exam unchanged from yesterday. A/P: N/v, likely secondary to large HH - Please consult surgery; pt may be a candidate for surgical PEG to help reduce hernia. ? Panc mass with ? SMV thrombosis - Please obtain panc-protocol CT. Results & Data ([facility]) Vital Signs (Past 12 Hours) Vital Signs Temp Pulse Resp BP Pulse Ox O2 Del Method 05/11/22 08:08 37.3 C 78 16 157/81 H 90 Room Air
--- NOTE | 2022-05-11 16:21 | Hospitalist Progress Note ---
Date of Service May 11, 2022 Assessment & Plan (1) Abdominal pain: Plan: Patient presents with 27 lb unintentional weight loss over past 6 months while undergoing chemotherapy for her melanoma, but most of the weight loss came in the last few weeks. Having epigastric abdominal pain off and on for many months, but presented with 1 week of significantly worsening abdominal pain/bloating, nausea, vomiting, and constipation. On admission, with WBC 26, lactate elevated at 3.5, procalcitonin elevated at 12 She IS afebrile LFTs and lipase are normal CT A/P showed: * Hypodense infiltrative mass, measuring approximately 3 x 2.8 cm, likely arising from the uncinate process. 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 This is consistent with a neoplasm and pancreatic adenocarcinoma is a primary consideration. An infiltrative mesente milo mass could appear similar. GI consultation for consideration for EUS guided biopsy is recommended. * Wall thickening of the transverse colon with mild adjacent stranding. This suggests a nonspecific colitis. Venous ischemic colitis is within the differential given the SMA stenosis/occlusion. * Large hiatal hernia. Moderately distended partially visualized intrathoracic stomach with air-fluid level. Abdominal pain and nausea/vomiting could be secondary to very large hiatal hernia, plus the transverse colitis and also could be related to the pancreatic mass and SMA stenosis or occlusion Lactic acidosis now resolved with IV fluids. There is no portal venous gas or pneumatosis noted on CT Her abdominal pain and nausea is slightly improved since admission. Still having some waves of severe pain especially with movement. As per admitting discussion with GI, there is no role for vascular intervention for the near/complete occlusion of the SMV. Anatomically, occlusion of this could potentially cause the transverse colitis. The pancreatic mass certainly could be a pancreatic cancer. Alternatively, perhaps metastatic disease from her known metastatic melanoma? Leukocytosis improving Started IV Zosyn on admission -Cautiously advance diet to clear liquids as per GI -Low threshold to place NG tube if continues to vomit given large hiatal hernia- would decompress this -Add IV Tylenol as needed for mild to moderate pain and add low-dose IV Dilaudid as needed for moderate to severe pain -Continue IV fluid hydration with LR but lowered to 100 mL/h to avoid volume overload -Continue IV Zosyn for colitis -Needs EUS for biopsy of pancreatic mass which can potentially be done as an inpatient early next week when advanced endoscopist is available 2/25 Patient tolerated liquid diet, advance to full liquid Discussed with GI recommend surgery consult for large hiatal hernia and if the patient is a candidate for PEG tube Proceed with CT of abdomen with pancreas protocol (2) Leukocytosis: Plan: The patient presented to the hospital with a white cell count 26,000 His white cell was 7.9 in 03/18 Started empirically on Zosyn Trending down today is 16,000 Unknown source possibly malignancy versus colitis versus UTI (3) Hiatal hernia: Plan: As above, large (4) Colitis: Plan: CT of abdomen showed: -Wall thickening of the transverse colon with mild adjacent stranding. This suggests a nonspecific colitis. Venous ischemic colitis is within the differential given the SMA stenosis/occlusion. 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 - Continues to follow with [facility]c. (7) Anemia: Plan: Hemoglobin hemoconcentrated on admission and today is at her baseline at 9.9 Had an IV iron infusion with her oncologist at [facility] several weeks ago Follow CBC, no evidence of blood loss at this time Could be related to ongoing chemotherapy with melanoma versus occult GI blood loss-perhaps Laith ulcers from large hiatal hernia? She cannot recall that she has ever had a colonoscopy EGD/EUS if GI recommended (8) Elevated troponin: Plan: Troponin checked on 05/10 due to epigastric pain and nausea/vomiting and found to be elevated at 237 Repeat up slightly to 278 Most likely myocardial demand ischemia secondary to GI issues and abdominal pain with nausea/vomiting, colitis as above ECG without ischemic changes Check echocardiogram for wall motion abnormalities Continue to trend serial troponin until peaks No known underlying CAD Remains on aspirin and statin (9) UTI (urinary tract infection): Plan: The patient has active urine sediment, the culture is not conclusive due to contamination Patient started on Zosyn Zosyn has stopped Started on Ceftin (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 -Continue metoprolol and diltiazem -Hold home Eliquis now and start therapeutic Lovenox 40 Mg SQ twice daily in preparation for possible surgical procedure (13) Hypertension: Plan: Blood pressures are mildly elevated likely secondary to pain - Continue home metoprolol and diltiazem. (14) Osteopenia: Plan: Hold home vitamin D (15) Transient cerebral ischemia: Plan: Continue home aspirin, statin History of TIA (16) Hypokalemia: Plan: Continue daily potassium chloride Monitor BMP, magnesium (17) Hyperlipidemia: Plan: - Continue statin. (18) GERD (gastroesophageal reflux disease): Plan: - Continue PPI. Plan DVT prophylaxis-therapeutic Lovenox Disposition-continued stay on med/surg. DNR/DNI Discussed her care at the bedside with her and son later in the day. Admission and Anticipated Discharge Date Admission Date: May 09, 2022 Subjective The patient is a 86-year-old female with a past medical history significant for recurrent melanoma presented to the hospital with a diffuse abdominal pain for several months persistent nausea, difficulty tolerating oral intake weight loss and worsening pain. Starting clear liquid, patient tolerated it well, patient has evidence of a large hiatal hernia. Patient has a possible pancreatic mass, however patient endoscopy ultrasound to decide 21 did not show evidence of pancreatic mass, patient has a prior imaging studies with a PET scan CT and 821 which showed increased uptake in the abdomen. She is consulted with GI recommend CT of abdomen with pancreas protocol, surgical consult to see if the patient is a candidate for PEG tube placement and hiatal hernia Physical Exam Physical Exam: General: Alert oriented x3, looks cachectic Neck: Supple not very tender Chest: Clear to auscultation no wheezing no murmur Cardiovascular: Regular rate and rhythm Abdomen: Soft bowel sounds active Results & Data Results & Data ([facility]) Vital Signs (Past 12 Hours) Vital Signs Temp Pulse Resp BP Pulse Ox O2 Del Method 05/11/22 08:08 37.3 C 78 16 157/81 H 90 Room Air PG Care Time/CCT Total # of Minutes Spent Total Time Spent with Patient: Total time spent is greater than 50% in coordination of care (as documented) at patient's floor/unit and/or counseling patient: Coding Level of Care Code 97565 Subseq Hosp Care Lvl 3 Diagnoses Abdominal pain R10.9 Leukocytosis D72.829 Hiatal hernia K44.9 Colitis K52.9 Pancreatic mass K86.89 Malignant melanoma of left lower leg C43.72 Anemia D64.9 Elevated troponin R77.8 UTI (urinary tract infection) N39.0 Superior mesenteric artery stenosis K55.1 Glaucoma H40.9 Paroxysmal atrial fibrillation I48.0 Hypertension I10 Osteopenia M85.80 Transient cerebral ischemia G45.9 Hypokalemia E87.6 Hyperlipidemia E78.5 GERD (gastroesophageal reflux disease) K21.9
--- NOTE | 2022-05-11 19:05 | XRay Report ---
KUB HISTORY: abd distention COMPARISON: KUB 05/10/2022. FINDINGS: There is again noted a large hiatus hernia. Mildly dilated gas-filled loops of large and sm all bowel are seen throughout the abdomen. This is similar to the prior study. There is a right total hip arthroplasty, posterior fusion hardware within the lumbar spine, and a pessary device again note d. Levoscoliosis of the lumbar spine. Moderate well-formed stool within the colon. No renal calculi. No ureteral calculi. No pneumoperitoneum or pneumatosis. IMPRESSION: 1. Mildly dilated gas-filled loops of large and small bowel are again seen throughout the abdomen. Th is favors a mild ileus. A partial small bowel obstruction could also have a similar appearance. Tre nued follow-up recommended. 2. Moderate well-formed stool within the colon. 3. Large hiatus hernia. ACT 112: Negative or not required by law. Electronically signed by: Iron Olivares M.D. 05/11/2022 7:03 PM
[2022-05-11] MEDS: ACETAMINOPHEN 1,000 MG/100 ML VIAL IV PRN (19:32)
[2022-05-11] MEDS: NEVANAC 0.1% OP SCH (20:18)
[2022-05-11] MEDS: ATORVASTATIN 10 MG TAB PO SCH (20:19)
--- NOTE | 2022-05-11 20:32 | Surgery Consultation ---
Date of Consultation May 11, 2022 Assessment & Plan (1) Pancreatic mass: (2) Hiatal hernia: The patient is currently mated to the hospital and the hospitalist service. 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 Gastroenterology has recommended the patient undergo a CT scan of the abdomen utilizing the pancreatic protocol for further delineation of this mass. They have also requested a surgical evaluation to see if patient can have a surgical PEG tube placed to help temporarily reduce patient's hiatal hernia. We recommend proceeding as follows: I discussed the case with my attending physician Dr. Jhaveri who will review patient's CT scans on 05/12/2022 He did note at the time of my discussion with him that with the patient's questionable history of pancreatic cancer further evaluation be required prior to putting the patient through a surgical procedure Further recommendations will be made based on his evaluation of this case History of Present Illness Reason for Consultation: Hiatal hernia Attending Physician: Fede Domingo MD History of Present Illness This is an 86-year-old female who was admitted to [facility] on 05/09/2022. Patient was admitted secondary to abdominal pain. The patient notes that she has some generalized bloating/pain which is nonradiating in her upper abdomen along with associated nausea and vomiting. The patient notes that her abdominal symptomatology appears to be somewhat worse after she eats. She denies any palliative factors. She notes that the pain does not radiate through to her back. She denies any bright blood per rectum or melanotic stools. When she does vomit she denies any hematemesis. Patient notes that this has been going on for "several weeks.". She reports that she has had approximately 30 to 35 pound weight loss over the past 6 weeks. She notes that she has never had a colonoscopy. She reports that she is a past smoker. In addition the patient says that she has been treated in the past for melanoma. She does report that she had a brother who is from pancreatic cancer. Since admission to the hospital the patient has had labs and imaging which I reviewed. CT scan of the abdomen and pelvis on 1222 showed the patient had an infiltrative mass measuring approximately 3 x 2.8 cm near the uncinate process of the pancreas. This resulted in severe stenosis/occlusion of the superior mesenteric vein and was concerning for pancreatic adenocarcinoma. There is some wall thickening of the transverse colon suggestive of a nonspecific colitis. There is also a large hiatal hernia noted with a large part of the stomach noted to be in the intrathoracic area. Most recent labs were from today including a CBC her white blood cell count was 16.9. Her hemoglobin and hematocrit were 8.6 and 27.7. Platelet count was within normal range. (White blood cell count at time of admission was noted to be 26.1. Chemistry profile showed sodium was 139 with a potassium of 2.7. BUN and creatinine were 22 and 0.5. There is no elevation of patient's bilirubin or transaminases. Her alkaline phosphatase was also not elevated. The patient was also noted to have an elevated troponin since admission. On day of admission patient's lactic acid peaked at 3.5 but has since normalized to 2.0. The patient was COVID tested this admission which was noted to be negative. At the time of my interview she was resting comfortably in bed and she was in no distress. Allergies Allergy/AdvReac Type Severity Reaction Status Date / Time nivolumab [From Opdivo] Allergy Severe Unknown Verified 05/09/22 16:58 shellfish derived Allergy Severe "violently Verified 05/09/22 16:58 sick" after eating lobster shrimp Allergy Intermediate VIOLENTLY Verified 05/09/22 16:58 SICK pseudoephedrine AdvReac Severe PASSED Verified 05/09/22 16:58 OUT, SPACEY iodine AdvReac Intermediate SICK TO Verified 05/09/22 16:58 STOMACH Penicillins AdvReac Intermediate SICK TO Verified 05/09/22 16:58 STOMACH propoxyphene AdvReac Intermediate HYPER Verified 05/09/22 16:58 tetanus toxoid, adsorbed AdvReac Intermediate "OUT OF Verified 05/09/22 16:58 ORBIT" Home Medications Medication Instructions Recorded Confirmed Type aspirin 81 mg tablet,delayed 81 mg PO DAILY #90 tabs 12/14/18 05/09/22 Rx release (Veena Low Dose Aspirin) biotin 1 mg tablet 1 mg PO DAILY 12/27/18 05/09/22 History cholecalciferol (vitamin D3) 25 1,000 units PO DAILY 12/27/18 05/09/22 History mcg (1,000 unit) tablet clindamycin HCl 150 mg capsule 150 mg PO DIRECTED PRN 1 HR 12/27/18 05/09/22 History PRIOR TO DENTAL PROCEDURES docusate sodium 100 mg capsule 100 mg PO HS 12/27/18 05/09/22 History triamcinolone acetonide 0.1 % 1 appln topical DIRECTED 11/04/19 05/09/22 History topical cream bimatoprost 0.01 % eye drops 1 drp ophthalmic (eye) DAILY 02/11/21 05/09/22 History (Lumigan) dorzolamide 22.3 mg-timolol 6.8 1 drp OPL BID 02/11/21 05/09/22 History mg/mL eye drops (Cosopt) diltiazem HCl 120 mg 120 mg PO DAILY #90 caps 06/26/21 05/09/22 Rx capsule,extended release 24 hr, controlled metoprolol tartrate 25 mg tablet 25 mg PO BID #180 tabs 07/08/21 05/09/22 Rx potassium chloride 10 mEq 10 meq PO DAILY #90 caps 07/26/21 05/09/22 Rx capsule,extended release diclofenac sodium 1 % topical gel 2 g topical QID 08/15/21 05/09/22 History (Arthritis Pain (diclofenac)) nepafenac 0.1 % eye 1 drp OPB DAILY 08/15/21 05/09/22 History drops,suspension (Nevanac) omeprazole 20 mg capsule,delayed 20 mg PO DAILY #90 caps 01/10/22 05/09/22 Rx release apixaban 2.5 mg tablet 2.5 mg PO BID 01/14/22 05/09/22 History fluticasone furoate 100 1 inh inhalation DAILY #60 ea 01/21/22 05/09/22 Rx mcg-vilanterol 25 mcg/dose inhalation powder (Breo Ellipta) Iron Infusion 0 dose IV DIRECTED PRN 05/09/22 05/09/22 History EXHAUSTION acetaminophen 650 mg 650 mg PO TID 05/09/22 05/09/22 History tablet,extended release aluminum hydrox-magnesium carb 160 1 tab PO HS 05/09/22 05/09/22 History mg-105 mg chewable tablet atorvastatin 10 mg tablet 10 mg PO HS 05/09/22 05/09/22 History diphenhydramine HCl 25 mg capsule 25 mg PO DIRECTED PRN 1 HR 05/09/22 05/09/22 History (Benadryl) PRIOR TO CT SCAN food supplemt, lactose-reduced 1 ea PO DAILY 05/09/22 05/09/22 History pembrolizumab 25 mg/mL intravenous 0 mg IV .Q3WK 05/09/22 05/09/22 History solution (Keytruda) prednisone 50 mg tablet 150 mg PO DIRECTED PRN 1 HR 05/09/22 05/09/[address]AN Patient History Medical History Atrial fibrillation with rapid ventricular response Bigeminal rhythm Glaucoma Melanoma of lower leg Migraine Pancreatic mass Plantar fasciitis of right foot Superior mesenteric artery stenosis Tinnitus Surgical History History of back surgery History of melanoma excision History of neck surgery History of total hip replacement S/P cataract surgery S/P correction of deviated nasal septum S/P dilation and curettage S/P laser trabeculoplasty of eye Anterior chamber S/P tonsillectomy Family History Mother Breast cancer Brother Cancer Father Congestive heart failure Myocardial infarction Denies family history of Ovarian cancer Prostate cancer Colorectal cancer Social History Smoking Status: Former smoker Tobacco Type: Cigarettes Second Hand Exposure: No; Do You Dip or Chew Tobacco: No; Tobacco Cessation Education Requested by Patient: No Hx Alcohol Use: No Hx Substance Use: No Preferred Language: Belarusian Communication Ability: Effective Visual Impairment: No Limitations Hearing Ability: Normal Scenic Arts Supervisor Required: Yes Beliefs That Will Affect Care: None marital status: Current Living Situation: Spouse Current Living Situation Comment: cats current occupational status: retired Other Information That Helps Us Care for You: No Feels Safe at Home: Yes Safety Concerns: Feels Safe At This Time Dental Care, Regularly: Yes Physical Activity Frequency: 3-4 Times per Week Physical Activity Frequency Comment: TREADMILL Seatbelt Use: always Sunscreen Use: Yes Review of Systems Constitutional: no fever and no chills Eyes: no eye pain Ear, Nose, Mouth, Throat: no ear pain Respiratory: no cough Cardiovascular: no chest pain Gastrointestinal: as per Subjective / HPI Genitourinary: no dysuria Musculoskeletal: no back pain Integumentary: no rash Neurologic: no localized weakness Physical Exam Constitutional: + thin; no acute distress Eyes: + anicteric sclerae ENMT: Ears: no hearing impairment and no external ear abnormality Neck: trachea midline Respiratory: normal respiratory effort; no respiratory distress and no labored breathing Cardiovascular: Rate/Rhythm: regular rate and regular rhythm Gastrointestinal (Abdomen): Abdomen is nondistended and nonrigid. The patient did have some generalized pain with palpation in the upper abdomen but she did not have any rebound tenderness or guarding. Musculoskeletal: No calf tenderness Skin: no rashes Neurologic: moves all extremities Psychiatric: A+Ox3, euthymic affect Results & Data ([facility]) Vital Signs (Past 12 Hours) Vital Signs Temp Pulse Resp BP BP Pulse Ox O2 Del Method 05/11/22 20:17 37.1 C 76 16 160/75 H 92 Room Air 05/11/22 16:35 37.1 C 94 H 16 179/79 H 94 Room Air PG Care Time/CCT Total # of Minutes Spent Total Time Spent with Patient: Total time spent is greater than 50% in coordination of care (as documented) at patient's floor/unit and/or counseling patient: Coding Level of Care Code 06447 Inpt Consult Level 5 Diagnoses Pancreatic mass K86.89 Hiatal hernia K44.9
[2022-05-12] MEDS: LACTATED RINGER'S 1,000 ML IV SCH ×3 (01:21→23:54)
[2022-05-12 08:05] LABS: Hematocrit (blood only) 26.8 % (34.1-44.9); Hemoglobin 8.4 g/dl (12.0-16.0); Mean Corpuscular Hemoglobin 24.8 pg (25.0-34.0); Mean Corpuscular Hgb Conc 31.3 g/dL (32.0-36.0); Mean Corpuscular Volume 79.1 fL (80.0-100.0); Mean Platelet Volume 9.7 fL (9.4-12.3); Platelet Count 286 K/uL (130-400); RDW Coefficient of Variation 20.4 % (11.5-14.5); Red Blood Count 3.39 M/uL (3.93-5.22); White Blood Count 14.35 K/ul (4.8-10.8)
[2022-05-12 08:25] LABS: Est GFR (African American) 103.7 ml/min; Est GFR (Non-African American) 89.5 ml/min
[2022-05-12] MEDS: ACETAMINOPHEN 1,000 MG/100 ML VIAL IV PRN (08:26)
[2022-05-12] MEDS ORDERED: OPTIRAY 350 100ml IV ONE (09:03)
--- NOTE | 2022-05-12 09:30 | Surgery Progress Note ---
Date of Service May 12, 2022 Assessment & Plan (1) Hiatal hernia: Plan: Patient here with concern for pancreatis mass and hiatal hernia GI on board making recommendations on imaging and work up of abdominal mass In regards to her hiatal hernia, her symptomatology doesn't really appear to be related to hernia at this time. Says she has known about it for quite awhile We have been asked to consider surgical G tube in pt, however may not help patient as she appears asymptomatic from it. We will order an UGI for tomorrow to evaluate passage of contrast through hernia and make further recommendations thereafter. Pt seen/examined with Dr. Jhaveri Admission and Anticipated Discharge Date Admission Date: May 09, 2022 Supervising Physician Co-Signing Physician Notes As per Annie Caceres physician permit review assistant Long discussion with the patient and her son who has the power of insurance attorney regarding her present condition Hiatal hernia which is longstanding is not causing patient any dysphagia she is able to sleep flat in bed without any coughing at night most of her pain is in the lower abdomen which is slightly distended (the CAT scan did show superior mesenteric vein stenosis) She denies any back pain she has had back surgery in the past A designated CT scan of the pancreas is ordered to evaluate further pancreatic mass noted also that showed stenosis significant superior mesenteric vein and the mass at the uncinate process At this time we will hold off any consideration of a PEG tube placement until more information regarding the pancreatic mass is defined Subjective Patient denies any issues with n/v. Pain or sensations of food getting stuck with eating. reports + weight loss and low appetite over past several months. She is passing flatus today. No back pain. Says her pain mostly in lower abdomen. Physical Exam Physical Exam: awake/alert, no distress Respiratory: normal respiratory effort Gastrointestinal (Abdomen): Inspection/Auscultation: + abdomen distended Percussion/Palpation: + abdomen tender (mild lower abdominal discomfort to palpation) and abdomen soft Results & Data ([facility]) Vital Signs (Past 12 Hours) Vital Signs Temp Pulse Resp BP Pulse Ox O2 Del Method 05/12/22 07:30 37.6 C H 89 18 158/83 H 91 Room Air PG Care Time/CCT Total # of Minutes Spent Total Time Spent with Patient: Total time spent is greater than 50% in coordination of care (as documented) at patient's floor/unit and/or counseling patient: Coding Level of Care Code 98550 Subseq Hosp Care Lvl 1 Diagnoses Hiatal hernia K44.9
[2022-05-12] MEDS: dilTIAZem HCL 120 MG CAPCR PO SCH (09:41)
[2022-05-12] MEDS: METOPROLOL TARTRATE 25 MG TAB PO SCH ×2 (09:41→20:25)
[2022-05-12] MEDS: ASPIRIN 81 MG ECTAB PO SCH (09:41)
--- NOTE | 2022-05-12 09:41 | CT Scan Report ---
CT abdomen wo/w con CLINICAL HISTORY: CT abd w pancrease PROTOCHOL,r/o pancreatic mass TECHNIQUE: Helical axial images of the abdomen were obtained. Automated dose lowering techniques and/ or adjustment according to patient size were utilized for this exam. This exam was performed with in travenous contrast. CT DOSE: 492.43 mGy.cm Comparison: Comparison is made to CT abdomen pelvis 05/09/2022 and PET/CT 01/07/2021 FINDINGS: Lower chest: Bibasilar atelectasis versus scarring is seen. Liver: Periportal edema is seen. A few tiny cysts are noted in the liver. Gallbladder and biliary tree: No calcified gallstones. Normal caliber wall. No intra- or extrahepatic biliary ductal dilation. Pancreas: There is an ill-defined mass in the uncinate process of the pancreas measuring approximatel y 32 x 26 mm. Spleen: Splenule is incidentally noted. Adrenals: Unremarkable. Kidneys and ureters: Right renal cysts are unchanged. Bowel: A large hiatal hernia contains almost the entirety of the stomach. Thickening of the sigmoid f lexure of the colon is again seen. Lymph nodes Retroperitoneal: Unremarkable. Mesenteric: Unremarkable. Peritoneum: Normal. Vessels: Again noted is significant narrowing of the portal/superior mesenteric vein as it traverses the uncinate process mass. No judy thrombus is definitely seen. Abdominal wall: Unremarkable. Bones: Degenerative changes in the visualized spine. Posterior fixation hardware is seen along with l umbar scoliosis. IMPRESSION: 1. Redemonstration of a poorly defined uncinate process mass. If not previously characterized, tissu e sampling is recommended. 2. There is narrowing of the superior mesenteric vein as it traverses the area of the mass. No defin ite superior mesenteric vein thrombus, however the vein is narrowed by the uncinate process mass. 3. Thickening of the sigmoid flexure of the colon is nonspecific and may represent infectious/inflam matory colitis. 4. Large hiatal hernia which appears to be chronic. ACT 112: Negative or not required by law. Electronically signed by: Pedro Kirk M.D. 05/12/2022 9:40 AM
[2022-05-12] MEDS: DORZOLAMIDE/TIMOLOL 22.3/6.8MG/ML 10 ML BTL OP SCH ×2 (09:42→20:21)
[2022-05-12] MEDS: BIMATOPROST 0.01% OP SOLN 2.5 ML BTL OP SCH (09:42)
[2022-05-12] MEDS: ENOXAPARIN INJ 40 MG/0.4 ML SYR SQ SCH ×2 (09:42→20:21)
[2022-05-12] MEDS: PANTOprazole 40 MG TAB PO SCH (09:42)
[2022-05-12] MEDS: FLUTICASONE/VILANTEROL 100/25MCG 14 PUFFS/INHALER INH SCH (09:43)
[2022-05-12] MEDS: POTASSIUM CHLORIDE 10 MEQ TABCR PO SCH (09:47)
--- NOTE | 2022-05-12 10:55 | XCELERA ---
[id number]
[2022-05-12] MEDS: cefTRIAXone SODIUM 1,000 MG in DEXTROSE 5% AD-VAN 50 ML IV SCH (11:07)
--- NOTE | 2022-05-12 16:24 | Gastroenterology Progress Note ---
Date of Service May 12, 2022 Assessment & Plan Admission and Anticipated Discharge Date Admission Date: May 09, 2022 Subjective Continues to have pain interfering with sleep, also marked nausea. Seen by surgery service -- planning UGIS tomorrow. Abd: mild distended, soft. Panc protocol CT reviewed A/P: Hiatal hernia -- per surgery service Panc mass -- Will try to arrange inpt EUS bx, review with radiology Abd pain, n/v -- Maybe from panc mass or HH. Primary team to address pain management. Results & Data ([facility]) Vital Signs (Past 12 Hours) Vital Signs Temp Pulse Resp BP Pulse Ox O2 Del Method 05/12/22 11:21 Room Air 05/12/22 07:30 37.6 C H 89 18 158/83 H 91 Room Air
[2022-05-12] MEDS: HYDROmorphone INJ 0.5 MG/0.5 ML SYR IV PRN (16:49)
[2022-05-12] MEDS: NON-FORMULARY PATIENT'S OWN MED OP SCH (18:08)
--- NOTE | 2022-05-12 20:07 | Hospitalist Progress Note ---
Date of Service May 12, 2022 Assessment & Plan (1) Abdominal pain: Plan: Patient presents with 27 lb unintentional weight loss over past 6 months while undergoing chemotherapy for her melanoma, but most of the weight loss came in the last few weeks. Having epigastric abdominal pain off and on for many months, but presented with 1 week of significantly worsening abdominal pain/bloating, nausea, vomiting, and constipation. On admission, with WBC 26, lactate elevated at 3.5, procalcitonin elevated at 12 She IS afebrile LFTs and lipase are normal CT A/P showed: * Hypodense infiltrative mass, measuring approximately 3 x 2.8 cm, likely arising from the uncinate process. 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 This is consistent with a neoplasm and pancreatic adenocarcinoma is a primary consideration. An infiltrative mesente milo mass could appear similar. GI consultation for consideration for EUS guided biopsy is recommended. * Wall thickening of the transverse colon with mild adjacent stranding. This suggests a nonspecific colitis. Venous ischemic colitis is within the differential given the SMA stenosis/occlusion. * Large hiatal hernia. Moderately distended partially visualized intrathoracic stomach with air-fluid level. Abdominal pain and nausea/vomiting could be secondary to very large hiatal hernia, plus the transverse colitis and also could be related to the pancreatic mass and SMA stenosis or occlusion Lactic acidosis now resolved with IV fluids. There is no portal venous gas or pneumatosis noted on CT Her abdominal pain and nausea is slightly improved since admission. Still having some waves of severe pain especially with movement. As per admitting discussion with GI, there is no role for vascular intervention for the near/complete occlusion of the SMV. Anatomically, occlusion of this could potentially cause the transverse colitis. The pancreatic mass certainly could be a pancreatic cancer. Alternatively, perhaps metastatic disease from her known metastatic melanoma? Leukocytosis improving Started IV Zosyn on admission -Cautiously advance diet to clear liquids as per GI -Low threshold to place NG tube if continues to vomit given large hiatal hernia- would decompress this -Add IV Tylenol as needed for mild to moderate pain and add low-dose IV Dilaudid as needed for moderate to severe pain -Continue IV fluid hydration with LR but lowered to 100 mL/h to avoid volume overload -Continue IV Zosyn for colitis -Needs EUS for biopsy of pancreatic mass which can potentially be done as an inpatient early next week when advanced endoscopist is available 2/25 Patient tolerated liquid diet, advance to full liquid Discussed with GI recommend surgery consult for large hiatal hernia and if the patient is a candidate for PEG tube Proceed with CT of abdomen with pancreas protocol 07/13 CT of abdomen with pancreas protocol confirmed pancreatic mass Patient is going for endoscopic ultrasound with biopsy tomorrow Pain management started on MS Contin (2) Leukocytosis: Plan: The patient presented to the hospital with a white cell count 26,000 His white cell was 7.9 in 03/18 Started empirically on Zosyn Trending down today is 16,000 Unknown source possibly malignancy versus colitis versus UTI (3) Hiatal hernia: Plan: As above, large (4) Colitis: Plan: CT of abdomen showed: -Wall thickening of the transverse colon with mild adjacent stranding. This suggests a nonspecific colitis. Venous ischemic colitis is within the differential given the SMA stenosis/occlusion. 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 - Continues to follow with [place] [facility]/onc. (7) Anemia: Plan: Hemoglobin hemoconcentrated on admission and today is at her baseline at 9.9 Had an IV iron infusion with her oncologist at [place] several weeks ago Follow CBC, no evidence of blood loss at this time Could be related to ongoing chemotherapy with melanoma versus occult GI blood loss-perhaps Laith ulcers from large hiatal hernia? She cannot recall that she has ever had a colonoscopy EGD/EUS if GI recommended (8) Elevated troponin: Plan: Troponin checked on 05/10 due to epigastric pain and nausea/vomiting and found to be elevated at 237 Repeat up slightly to 278 Most likely myocardial demand ischemia secondary to GI issues and abdominal pain with nausea/vomiting, colitis as above ECG without ischemic changes Check echocardiogram for wall motion abnormalities Continue to trend serial troponin until peaks No known underlying CAD Remains on aspirin and statin (9) UTI (urinary tract infection): Plan: The patient has active urine sediment, the culture is not conclusive due to contamination Patient started on Zosyn Zosyn has stopped Started on Ceftin (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 -Continue metoprolol and diltiazem -Hold home Eliquis now and start therapeutic Lovenox 40 Mg SQ twice daily in preparation for possible surgical procedure (13) Hypertension: Plan: Blood pressures are mildly elevated likely secondary to pain - Continue home metoprolol and diltiazem. (14) Osteopenia: Plan: Hold home vitamin D (15) Transient cerebral ischemia: Plan: Continue home aspirin, statin History of TIA (16) Hypokalemia: Plan: Continue daily potassium chloride Monitor BMP, magnesium (17) Hyperlipidemia: Plan: - Continue statin. (18) GERD (gastroesophageal reflux disease): Plan: - Continue PPI. Plan DVT prophylaxis-therapeutic Lovenox Disposition-continued stay on med/surg. DNR/DNI Discussed her care at the bedside with her and son later in the day. Admission and Anticipated Discharge Date Admission Date: May 09, 2022 Subjective Continues to have pain interfering with sleep, also marked nausea. Seen by surgery service -- planning UGIS tomorrow. Abd: mild distended, soft. [facility] protocol CT reviewed A/P: Hiatal hernia -- per surgery service [facility] mass -- Will try to arrange inpt EUS bx, review with radiology Abd pain, n/v -- Maybe from [facility] mass or HH. Primary team to address pain management. Results & Data Results & Data ([facility]) Vital Signs (Past 12 Hours) Vital Signs O2 Del Method 05/12/22 11:21 Room Air PG Care Time/CCT Total # of Minutes Spent Total Time Spent with Patient: Total time spent is greater than 50% in coordination of care (as documented) at patient's floor/unit and/or counseling patient: Coding Level of Care Code 56947 Subseq Hosp Care Lvl 3 Diagnoses Abdominal pain R10.9 Leukocytosis D72.829 Hiatal hernia K44.9 Colitis K52.9 Pancreatic mass K86.89 Malignant melanoma of left lower leg C43.72 Anemia D64.9 Elevated troponin R77.8 UTI (urinary tract infection) N39.0 Superior mesenteric artery stenosis K55.1 Glaucoma H40.9 Paroxysmal atrial fibrillation I48.0 Hypertension I10 Osteopenia M85.80 Transient cerebral ischemia G45.9 Hypokalemia E87.6 Hyperlipidemia E78.5 GERD (gastroesophageal reflux disease) K21.9
[2022-05-12] MEDS: ATORVASTATIN 10 MG TAB PO SCH (20:25)
[2022-05-12] MEDS: MoRPHine SULFATE CR 15 MG TABCR PO SCH (21:12)
[2022-05-13 07:53] LABS: Hemoglobin 9.1 g/dl (12.0-16.0); Mean Corpuscular Hemoglobin 24.8 pg (25.0-34.0); Mean Corpuscular Hgb Conc 31.4 g/dL (32.0-36.0); Mean Platelet Volume 9.5 fL (9.4-12.3); Platelet Count 329 K/uL (130-400); RDW Coefficient of Variation 20.3 % (11.5-14.5); RDW Standard Deviation 56.2 fL (36.4-46.3); Red Blood Count 3.67 M/uL (3.93-5.22)
[2022-05-13 08:13] LABS: Creatinine Clr Calc Pharmacy 60.5 ml/min; Est GFR (African American) 105.1 ml/min; Est GFR (Non-African American) 90.7 ml/min
--- NOTE | 2022-05-13 09:36 | Surgery Progress Note ---
Date of Service May 13, 2022 Assessment & Plan (1) Hiatal hernia: Plan: Patient here with concern for pancreatis mass and hiatal hernia GI on board making recommendations on imaging and work up of abdominal mass In regards to her hiatal hernia, her symptomatology doesn't really appear to be related to hernia at this time. Says she has known about it for quite awhile We have been asked to consider surgical G tube in pt, however may not help patient as she appears asymptomatic from it. We will order an UGI for tomorrow to evaluate passage of contrast through hernia and make further recommendations thereafter. Pt seen/examined with Dr. Jhaveri Admission and Anticipated Discharge Date Admission Date: May 09, 2022 Results & Data ([facility] [place]) Vital Signs (Past 12 Hours) Vital Signs Temp Pulse Resp BP Pulse Ox O2 Del Method 05/13/22 08:16 Room Air 05/13/22 07:30 36.9 C 86 18 179/86 H 92 Room Air Diagnostic Findings Review of the upper GI series with radiologist Patient has a sliding hiatal hernia no paraesophageal component no evidence of any obstruction The hernia the patient has had for a long time and clinically she does not have any new symptoms related to the hernia Her oral intake may be decreased most of the fact that she does not have an appetite when she eats peanut butter on a piece of bread and other things she has no problem with dysphagia With this there is no benefit to place a PEG tube to try to reduce the stomach into the abdomen or even do a laparoscopic Ken fundoplication the primary problem at this point seems to be the pancreatic malignancy We will sign off at this time
--- NOTE | 2022-05-13 10:28 | Fluoroscopy Report ---
[place] GI series CLINICAL HISTORY: Evaluate passage of contrast through hiatal hernia COMPARISON STUDY: CT of the abdomen and pelvis May 12, 2022. FLUOROSCOPY TIME: 1.2 minutes. FLUOROSCOPIC IMAGES: 22 TECHNIQUE AND FINDINGS: Single contrast upper GI series was performed. Mucosal detail is diminished o n this exam. No esophageal mass or stricture is noted. There is a large sliding type hiatal hernia. T he GE junction, fundus, cardia and proximal to mid body of the stomach are within the chest. Contrast passed freely into the distal stomach and duodenum. No contrast extravasation was noted. Postoperati ve findings within the spine are incidentally noted as well as thoracolumbar spine scoliosis. IMPRESSION: 1. Large sliding type hiatal hernia with partially intrathoracic stomach. 2. No evidence of gastric outlet obstruction. ACT 112: Negative or not required by law. Electronically signed by: Armin Garcia M.D. 05/13/2022 10:26 AM
[2022-05-13] MEDS: ASPIRIN 81 MG ECTAB PO SCH (10:55)
[2022-05-13] MEDS: ENOXAPARIN INJ 40 MG/0.4 ML SYR SQ SCH ×2 (10:55→21:20)
[2022-05-13] MEDS: BIMATOPROST 0.01% OP SOLN 2.5 ML BTL OP SCH (10:55)
[2022-05-13] MEDS: METOPROLOL TARTRATE 25 MG TAB PO SCH ×2 (10:55→21:20)
[2022-05-13] MEDS: dilTIAZem HCL 120 MG CAPCR PO SCH (10:55)
[2022-05-13] MEDS: DORZOLAMIDE/TIMOLOL 22.3/6.8MG/ML 10 ML BTL OP SCH ×2 (10:55→21:18)
[2022-05-13] MEDS: FLUTICASONE/VILANTEROL 100/25MCG 14 PUFFS/INHALER INH SCH (10:55)
[2022-05-13] MEDS: NON-FORMULARY PATIENT'S OWN MED OP SCH ×2 (10:56→17:38)
[2022-05-13] MEDS: PANTOprazole 40 MG TAB PO SCH (10:56)
[2022-05-13] MEDS: POTASSIUM CHLORIDE 10 MEQ TABCR PO SCH (10:56)
[2022-05-13] MEDS: HYDROmorphone INJ 0.5 MG/0.5 ML SYR IV PRN (11:00)
[2022-05-13] MEDS: cefTRIAXone SODIUM 1,000 MG in DEXTROSE 5% AD-VAN 50 ML IV SCH (11:11)
[2022-05-13] MEDS: LACTATED RINGER'S 1,000 ML IV SCH ×2 (12:12→22:35)
--- NOTE | 2022-05-13 13:07 | Gastroenterology Progress Note ---
Date of Service May 13, 2022 Assessment & Plan (1) Abdominal pain: Plan: Secondary to mass/colitis. Constipation is contributing. (2) Superior mesenteric artery stenosis: (3) Pancreatic mass: (4) Colitis: Plan Arranging IP EUS w Dr. Fletcher - no definite day/time yet. Hold Lovenox until EUS. Continue holding Eliquis. Full liquid diet today. will change diet when we have a day/time for EUS> Admission and Anticipated Discharge Date Admission Date: May 09, 2022 Supervising Physician Co-Signing Physician Notes ATtg add: Pt began MS contin, with improved pain but still poorly tolerant of PO. UGIS done -- hernia appears reduced compared to prior CT, no delay of contrast. On exam, she appears more comfortable, but still has marked LUQ tenderness. A?P: Panc mass -- Reviweed films with radiology - panc mass not amenable to perc bx; EUS guided bx may be possible, but no clear window on most recent CT due to HH. Nevertheless, wIll arrange for attempt at EUS Colon wall thick and trans colon dilation-- unclear etiology, consider unprepped flex sig? Enemas, Miralax. HH -- UGIS reviewed, surg recs noted. Subjective Continues w diffuse, migratory abd pain. No nausea. Poor appetite, poor po intake. Barium swallow this morning with large HH, but reduced/improved compared to CT scan on 05/12 Most recent BM Thursday - small, brown. Awake, alert, hemodynamically stable. CT pancreas w mass. Review of Systems Review of Systems: ROS: Gen: +weakness/weight loss Eyes: No eye redness, or pain, no recent vision changes Resp: No SOB, no cough Cardio: No palpitations/irregular beats, no chest pain GI: As per HPI, otherwise (-) : Denies pain on urination Skin: pale, no jaundice, itching or new rashes Ext: no edema, no focal weakness Physical Exam Constitutional: well developed, + ill appearing and + frail appearing; no acute distress (uncomfortable) Eyes: PERRL, conjunctivae normal, anicteric sclerae ENMT: external ear and nose normal, oropharynx normal Neck: trachea midline, no thyromegaly Respiratory: normal respiratory effort, lungs clear to auscultation Cardiovascular: RRR, no murmur, no edema Gastrointestinal (Abdomen): moderately distended but not taunt, diffusely tender w/o rebound or guarding. Skin: pale, no rashes, no lesions Neurologic: PERRL, EOMI, accommodation nl, no face palsy, no dysarthria Psychiatric: A+Ox3, euthymic affect Lymphatic: no cervical or axillary lymphadenopathy Results & Data ([facility]) Vital Signs (Past 12 Hours) Vital Signs Temp Pulse Resp BP Pulse Ox O2 Del Method 05/13/22 08:16 Room Air 05/13/22 07:30 36.9 C 86 18 179/86 H 92 Room Air Laboratory Results WBC 15, Hb 9.1, Hct 30.3, Plts 324, Cr0.47. Diagnostic Findings CT panc protocol 05/12/22: 1. Redemonstration of a poorly defined uncinate process mass. If not previously characterized, tissue sampling is recommended. 2. There is narrowing of the superior mesenteric vein as it traverses the area of the mass. No definite superior mesenteric vein thrombus, however the vein is narrowed by the uncinate process mass. 3. Thickening of the sigmoid flexure of the colon is nonspecific and may represent infectious/inflammatory colitis. 4. Large hiatal hernia which appears to be chronic. UGI series: 05/13/22 1. Large sliding type hiatal hernia with partially intrathoracic stomach. 2. No evidence of gastric outlet obstruction. CTAP w IV contrast: 05/09/22: 1. Hypodense infiltrative mass, measuring approximately 3 x 2.8 cm, likely arising from the uncinate process. 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 This is consistent with a neoplasm and pancreatic adenocarcinoma is a primary consideration. An infiltrative mesenteric mass could appear similar. GI consultation for consideration for EUS guided biopsy is recommended. 2. Wall thickening of the transverse colon with mild adjacent stranding. This suggests a nonspecific colitis. Venous ischemic colitis is within the differential given the SMV stenosis/occlusion. 3. Large hiatal hernia. Moderately distended partially visualized intrathoracic stomach with air-fluid level.
[2022-05-13] MEDS: POLYETHYLENE (MIRALAX) 17 GM PACK PO SCH (14:40)
[2022-05-13] MEDS ORDERED: MoRPHine SULFATE CR 15 MG TABCR PO SCH (16:00)
--- NOTE | 2022-05-13 20:56 | Hospitalist Progress Note ---
Date of Service May 13, 2022 Assessment & Plan (1) Abdominal pain: Plan: Patient presents with 27 lb unintentional weight loss over past 6 months while undergoing chemotherapy for her melanoma, but most of the weight loss came in the last few weeks. Having epigastric abdominal pain off and on for many months, but presented with 1 week of significantly worsening abdominal pain/bloating, nausea, vomiting, and constipation. On admission, with WBC 26, lactate elevated at 3.5, procalcitonin elevated at 12 She IS afebrile LFTs and lipase are normal CT A/P showed: * Hypodense infiltrative mass, measuring approximately 3 x 2.8 cm, likely arising from the uncinate process. 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 This is consistent with a neoplasm and pancreatic adenocarcinoma is a primary consideration. An infiltrative mesente milo mass could appear similar. GI consultation for consideration for EUS guided biopsy is recommended. * Wall thickening of the transverse colon with mild adjacent stranding. This suggests a nonspecific colitis. Venous ischemic colitis is within the differential given the SMA stenosis/occlusion. * Large hiatal hernia. Moderately distended partially visualized intrathoracic stomach with air-fluid level. Abdominal pain and nausea/vomiting could be secondary to very large hiatal hernia, plus the transverse colitis and also could be related to the pancreatic mass and SMA stenosis or occlusion Lactic acidosis now resolved with IV fluids. There is no portal venous gas or pneumatosis noted on CT Her abdominal pain and nausea is slightly improved since admission. Still having some waves of severe pain especially with movement. As per admitting discussion with GI, there is no role for vascular intervention for the near/complete occlusion of the SMV. Anatomically, occlusion of this could potentially cause the transverse colitis. The pancreatic mass certainly could be a pancreatic cancer. Alternatively, perhaps metastatic disease from her known metastatic melanoma? Leukocytosis improving Started IV Zosyn on admission -Cautiously advance diet to clear liquids as per GI -Low threshold to place NG tube if continues to vomit given large hiatal hernia- would decompress this -Add IV Tylenol as needed for mild to moderate pain and add low-dose IV Dilaudid as needed for moderate to severe pain -Continue IV fluid hydration with LR but lowered to 100 mL/h to avoid volume overload -Continue IV Zosyn for colitis -Needs EUS for biopsy of pancreatic mass which can potentially be done as an inpatient early next week when advanced endoscopist is available 2/25 Patient tolerated liquid diet, advance to full liquid Discussed with GI recommend surgery consult for large hiatal hernia and if the patient is a candidate for PEG tube Proceed with CT of abdomen with pancreas protocol 07/13 CT of abdomen with pancreas protocol confirmed pancreatic mass Patient is going for endoscopic ultrasound with biopsy tomorrow Pain management started on MS Contin (2) Leukocytosis: Plan: The patient presented to the hospital with a white cell count 26,000 His white cell was 7.9 in 03/18 Started empirically on Zosyn Trending down today is 15,000 Unknown source possibly malignancy (3) Hiatal hernia: Plan: As above, large (4) Colitis: Plan: CT of abdomen showed: -Wall thickening of the transverse colon with mild adjacent stranding. This suggests a nonspecific colitis. Venous ischemic colitis is within the differential given the SMA stenosis/occlusion. 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 - Continues to follow with [place] [facility]/onc. (7) Anemia: Plan: Hemoglobin hemoconcentrated on admission and today is at her baseline at 9.9 Had an IV iron infusion with her oncologist at [place] several weeks ago Follow CBC, no evidence of blood loss at this time Could be related to ongoing chemotherapy with melanoma versus occult GI blood loss-perhaps Laith ulcers from large hiatal hernia? She cannot recall that she has ever had a colonoscopy EGD/EUS if GI recommended (8) Elevated troponin: Plan: Troponin checked on 05/10 due to epigastric pain and nausea/vomiting and found to be elevated at 237 Repeat up slightly to 278 Most likely myocardial demand ischemia secondary to GI issues and abdominal pain with nausea/vomiting, colitis as above ECG without ischemic changes Check echocardiogram for wall motion abnormalities Continue to trend serial troponin until peaks No known underlying CAD Remains on aspirin and statin (9) UTI (urinary tract infection): Plan: The patient has active urine sediment, the culture is not conclusive due to contamination Patient started on Zosyn Zosyn has stopped Started on Ceftin (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 -Continue metoprolol and diltiazem -Hold home Eliquis now and start therapeutic Lovenox 40 Mg SQ twice daily in preparation for possible surgical procedure (13) Hypertension: Plan: Blood pressures are mildly elevated likely secondary to pain - Continue home metoprolol and diltiazem. (14) Osteopenia: Plan: Hold home vitamin D (15) Transient cerebral ischemia: Plan: Continue home aspirin, statin History of TIA (16) Hypokalemia: Plan: Continue daily potassium chloride Monitor BMP, magnesium (17) Hyperlipidemia: Plan: - Continue statin. (18) GERD (gastroesophageal reflux disease): Plan: - Continue PPI. Plan DVT prophylaxis-therapeutic Lovenox Disposition-continued stay on med/surg. DNR/DNI Discussed her care at the bedside with her and son later in the day. Admission and Anticipated Discharge Date Admission Date: May 09, 2022 Subjective Discussed with GI, GI is planning to proceed with endoscopy ultrasound for biopsy of pancreatic mass -Discussed with the son in details, abdominal pain, started on long-acting narcotic, possibly pancreatic malignancy . No nausea. Poor appetite, poor po intake. Barium swallow this morning with large HH, but reduced/improved compared to CT scan on 04/18. PG Care Time/CCT Total # of Minutes Spent Total Time Spent with Patient: Total time spent is greater than 50% in coordination of care (as documented) at patient's floor/unit and/or counseling patient: Coding Level of Care Code 86540 Subseq Hosp Care Lvl 3 Diagnoses Abdominal pain R10.9 Leukocytosis D72.829 Hiatal hernia K44.9 Colitis K52.9 Pancreatic mass K86.89 Malignant melanoma of left lower leg C43.72 Anemia D64.9 Elevated troponin R77.8 UTI (urinary tract infection) N39.0 Superior mesenteric artery stenosis K55.1 Glaucoma H40.9 Paroxysmal atrial fibrillation I48.0 Hypertension I10 Osteopenia M85.80 Transient cerebral ischemia G45.9 Hypokalemia E87.6 Hyperlipidemia E78.5 GERD (gastroesophageal reflux disease) K21.9
[2022-05-13] MEDS: MoRPHine SULFATE CR 15 MG TABCR PO SCH (21:18)
[2022-05-13] MEDS: ATORVASTATIN 10 MG TAB PO SCH (21:20)
[2022-05-13 21:51] LABS: Appearance Urine Clear (Clear); Bacteria Urine Automated Negative (Negative); Bilirubin Urine Negative (Negative); Blood Urine Negative (Negative); Color Urine Yellow; Epithelial Cell Urine Auto >30 /lpf (0-5); Glucose Urine UA Negative (Negative); Ketones Urine Negative (Negative); Leukocyte Esterase Urine Negative (Negative); Nitrite Urine Negative (Negative); RBC Urine Automated 0-4 /hpf (0-4); Specific Gravity Urine 1.009 (1.000-1.030); Urobilinogen Urine Negative (Negative)
[2022-05-13 21:52] LABS: Protein Urine 1+ (Negative)
[2022-05-14] MEDS: LACTATED RINGER'S 1,000 ML IV SCH ×3 (06:50→17:43)
[2022-05-14 07:00] LABS: Basophils # (auto) 0.02 K/uL (0-0.2); Basophils % (auto) 0.2 %; Eosinophils # (auto) 0.04 K/uL (0-0.50); Eosinophils % (auto) 0.3 %; Hematocrit (blood only) 27.4 % (34.1-44.9); Hemoglobin 8.8 g/dl (12.0-16.0); Immature Granulocytes # (auto) 0.11 K/uL (0.00-0.02); Immature Granulocytes % (auto) 0.9 %; Lymphocytes # (auto) 1.08 K/uL (1.2-3.4); Lymphocytes % (auto) 9.2 %; Mean Corpuscular Hemoglobin 24.4 pg (25.0-34.0); Mean Corpuscular Hgb Conc 32.1 g/dL (32.0-36.0); Mean Corpuscular Volume 76.1 fL (80.0-100.0); Mean Platelet Volume 9.3 fL (9.4-12.3); Monocytes % (auto) 5.1 %; Neutrophils # (auto) 9.83 K/uL (1.4-6.5); Neutrophils % (auto) 84.3 %; Nucleated RBC # (auto) 0.02 K/uL (0-0); Nucleated RBC % (auto) 0.2 %; Platelet Count 339 K/uL (130-400); RDW Coefficient of Variation 20.3 % (11.5-14.5); RDW Standard Deviation 54.9 fL (36.4-46.3); White Blood Count 11.68 K/ul (4.8-10.8)
[2022-05-14 07:24] LABS: Anisocytosis Present
--- NOTE | 2022-05-14 09:22 | Gastroenterology Progress Note ---
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 Fletcher - Hold Eliangelito & Lovepedrox (3) Colitis: Plan: Gas filled loops of bowels ? ileus - NPO - Repeat KUB - Avoid narcotics - Flex sig today by Dr. Hoffman (2 tap water enema for prep) Admission and Anticipated Discharge Date Admission Date: May 09, 2022 Supervising Physician Co-Signing Physician Notes Attg add: Large Bm today, with resultant improvement in abd distention and abd pain. Her appetite is improved, and she is asking for food. She is also on Morphine On exam, she is comfortable, pleasant. Abd is soft. Trans colitis -- Plan scope tomorrow, deferred today due to low K. DDX = colitis related to high impaction, venous congestion from venous thrombosis. HH -- Surg service felt no need for PEG, but may consider placing PEG to help reduce hernia during EUS. Panc mass -- Bx on Thursday. Constipaton -- Miralax, lactulose Nutrition -- Hopefully will resume PO soon, consider Marinol to improve pain/appetite. Subjective Pt reports having intermittent abd pain. + nausea but no vomiting. Not passing flatus but had 2 round stools. Denies rectal bleeding Review of Systems Review of Systems: All systems reviewed & are unremarkable except as noted in HPI & below Physical Exam Constitutional: WD/WN, vitals as above well groomed, cooperative and comfortable Eyes: PERRL, conjunctivae normal, anicteric sclerae ENMT: external ear and nose normal, oropharynx normal Respiratory: normal respiratory effort, lungs clear to auscultation Cardiovascular: RRR, no murmur, no edema Gastrointestinal (Abdomen): Distended mostly on upper abd area, BS hypoactive, TTP diffusely Skin: no rashes, warm and dry no jaundice Psychiatric: A+Ox3, euthymic affect Lymphatic: no lymphedema Results & Data ([facility]) Vital Signs (Past 12 Hours) Vital Signs Temp Pulse Resp BP Pulse Ox O2 Del Method 05/14/22 08:00 Room Air 05/14/22 07:51 37.5 C 83 18 203/96 H 93 Room Air 05/13/22 21:24 Room Air
[2022-05-14] MEDS: ENOXAPARIN INJ 40 MG/0.4 ML SYR SQ SCH ×2 (09:50→20:21)
[2022-05-14] MEDS: dilTIAZem HCL 120 MG CAPCR PO SCH (09:52)
[2022-05-14] MEDS: PANTOprazole 40 MG TAB PO SCH ×2 (09:52→20:19)
[2022-05-14] MEDS: METOPROLOL TARTRATE 25 MG TAB PO SCH ×2 (09:52→20:20)
[2022-05-14] MEDS: FLUTICASONE/VILANTEROL 100/25MCG 14 PUFFS/INHALER INH SCH (09:53)
[2022-05-14] MEDS: ASPIRIN 81 MG ECTAB PO SCH (09:53)
[2022-05-14] MEDS: BIMATOPROST 0.01% OP SOLN 2.5 ML BTL OP SCH (09:53)
[2022-05-14] MEDS: NON-FORMULARY PATIENT'S OWN MED OP SCH ×3 (09:53→20:21)
[2022-05-14] MEDS: DORZOLAMIDE/TIMOLOL 22.3/6.8MG/ML 10 ML BTL OP SCH ×2 (09:53→20:20)
[2022-05-14] MEDS: POTASSIUM CHLORIDE 10 MEQ TABCR PO SCH (09:58)
[2022-05-14] MEDS: POLYETHYLENE (MIRALAX) 17 GM PACK PO SCH (09:58)
[2022-05-14] MEDS: cefTRIAXone SODIUM 1,000 MG in DEXTROSE 5% AD-VAN 50 ML IV SCH (10:05)
--- NOTE | 2022-05-14 11:37 | XRay Report ---
XR KUB/Abdomen 1 view CLINICAL HISTORY: abd distension TECHNIQUE: 1 view of the abdomen was obtained. Comparison: Comparison is made to abdomen radiograph 05/11/[address] abdomen pelvis 05/12/2022 FINDINGS: Lung bases are unremarkable. Posterior fixation hardware and levoscoliosis noted. 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 The bowel gas pattern is nonobstructive. Enteric contrast is noted likely from prior CT. IMPRESSION: Nonobstructive bowel gas pattern. There are mildly gas-distended loops of small bowel without judy o bstruction. ACT 112: Negative or not required by law. Electronically signed by: Pedro Kikr M.D. 05/14/2022 11:36 AM
[2022-05-14 13:04] LABS: Albumin Globulin Ratio 0.9 (0.9-2); Albumin Level 2.8 gm/dl (3.4-5.0); BUN Creatinine Ratio 16.3 (10-20); Bilirubin,Total 0.5 mg/dl (0.2-1.0); Est GFR (African American) 103.7 ml/min; Est GFR (Non-African American) 89.5 ml/min; Potassium 2.1 mmol/L (3.5-5.1); Total Protein 5.8 gm/dl (6.0-8.3)
[2022-05-14] MEDS: POTASSIUM CHLORIDE / WTR 10 MEQ/100 ML PLCT IV SCH ×6 (13:59→22:52)
--- NOTE | 2022-05-14 19:25 | Hospitalist Progress Note ---
Date of Service May 14, 2022 Assessment & Plan (1) Abdominal pain: Plan: Patient presents with 27 lb unintentional weight loss over past 6 months while undergoing chemotherapy for her melanoma, but most of the weight loss came in the last few weeks. Having epigastric abdominal pain off and on for many months, but presented with 1 week of significantly worsening abdominal pain/bloating, nausea, vomiting, and constipation. On admission, with WBC 26, lactate elevated at 3.5, procalcitonin elevated at 12 She IS afebrile LFTs and lipase are normal CT A/P showed: * Hypodense infiltrative mass, measuring approximately 3 x 2.8 cm, likely arising from the uncinate process. 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 This is consistent with a neoplasm and pancreatic adenocarcinoma is a primary consideration. An infiltrative mesente milo mass could appear similar. GI consultation for consideration for EUS guided biopsy is recommended. * Wall thickening of the transverse colon with mild adjacent stranding. This suggests a nonspecific colitis. Venous ischemic colitis is within the differential given the SMA stenosis/occlusion. * Large hiatal hernia. Moderately distended partially visualized intrathoracic stomach with air-fluid level. Abdominal pain and nausea/vomiting could be secondary to very large hiatal hernia, plus the transverse colitis and also could be related to the pancreatic mass and SMA stenosis or occlusion Lactic acidosis now resolved with IV fluids. There is no portal venous gas or pneumatosis noted on CT Her abdominal pain and nausea is slightly improved since admission. Still having some waves of severe pain especially with movement. As per admitting discussion with GI, there is no role for vascular intervention for the near/complete occlusion of the SMV. Anatomically, occlusion of this could potentially cause the transverse colitis. The pancreatic mass certainly could be a pancreatic cancer. Alternatively, perhaps metastatic disease from her known metastatic melanoma? Leukocytosis improving Started IV Zosyn on admission -Cautiously advance diet to clear liquids as per GI -Low threshold to place NG tube if continues to vomit given large hiatal hernia- would decompress this -Add IV Tylenol as needed for mild to moderate pain and add low-dose IV Dilaudid as needed for moderate to severe pain -Continue IV fluid hydration with LR but lowered to 100 mL/h to avoid volume overload -Continue IV Zosyn for colitis -Needs EUS for biopsy of pancreatic mass which can potentially be done as an inpatient early next week when advanced endoscopist is available 05/11 Patient tolerated liquid diet, advance to full liquid Discussed with GI recommend surgery consult for large hiatal hernia and if the patient is a candidate for PEG tube Proceed with CT of abdomen with pancreas protocol 05/12 CT of abdomen with pancreas protocol confirmed pancreatic mass Patient is going for endoscopic ultrasound with biopsy tomorrow Pain management started on MS Contin 05/14 The patient has large multiple bowel movements Patient was supposed to go for EUS possibly on Thursday -Upper GI series performed on Thursday showed partial intrathoracic stomach -Supposed to have flex sigmoidoscopy today canceled due to hypokalemia (2) Hypokalemia: Plan: 05/14 Severe hypokalemia with a potassium of 2.1 Continue cardiac monitoring Received 3 rounds of KCl -Potassium in the afternoon Potassium level tomorrow (3) Leukocytosis: Plan: The patient presented to the hospital with a white cell count 26,000 His white cell was 7.9 in 03/18 Started empirically on Zosyn Trending down (4) Hiatal hernia: Plan: As above, large (5) Colitis: Plan: CT of abdomen showed: -Wall thickening of the transverse colon with mild adjacent stranding. This suggests a nonspecific colitis. Venous ischemic colitis is within the differential given the SMA stenosis/occlusion. 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 - Continues to follow with [facility]. (8) Anemia: Plan: Hemoglobin hemoconcentrated on admission and today is at her baseline at 9.9 Had an IV iron infusion with her oncologist at [facility] several weeks ago Follow CBC, no evidence of blood loss at this time Could be related to ongoing chemotherapy with melanoma versus occult GI blood loss-perhaps Laith ulcers from large hiatal hernia? She cannot recall that she has ever had a colonoscopy EGD/EUS if GI recommended (9) Elevated troponin: Plan: Troponin checked on 05/10 due to epigastric pain and nausea/vomiting and found to be elevated at 237 Repeat up slightly to 278 Most likely myocardial demand ischemia secondary to GI issues and abdominal pain with nausea/vomiting, colitis as above ECG without ischemic changes Check echocardiogram for wall motion abnormalities Continue to trend serial troponin until peaks No known underlying CAD Remains on aspirin and statin (10) UTI (urinary tract infection): Plan: The patient has active urine sediment, the culture is not conclusive due to con tamination Patient started on Zosyn Zosyn has stopped Started on Ceftin (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 -Continue metoprolol and diltiazem -Hold home Eliquis now and start therapeutic Lovenox 40 Mg SQ twice daily in preparation for possible surgical procedure (14) Hypertension: Plan: Blood pressures are mildly elevated likely secondary to pain - Continue home metoprolol and diltiazem. (15) Osteopenia: Plan: Hold home vitamin D (16) Transient cerebral ischemia: Plan: Continue home aspirin, statin History of TIA (17) Hyperlipidemia: Plan: - Continue statin. (18) GERD (gastroesophageal reflux disease): Plan: - Continue PPI. Plan DVT prophylaxis-therapeutic Lovenox Disposition-continued stay on med/surg. DNR/DNI Discussed her care at the bedside with her and son later in the day. Admission and Anticipated Discharge Date Admission Date: May 09, 2022 Results & Data Results & Data ([facility]) Vital Signs (Past 12 Hours) Vital Signs Temp Pulse Resp BP Pulse Ox O2 Del Method 05/14/22 15:15 37 C 81 16 173/85 H 94 Room Air 05/14/22 13:01 37.2 C 83 16 174/96 H 96 Room Air 05/14/22 09:52 37.2 C 74 16 188/94 H 94 Room Air 05/14/22 08:00 Room Air 05/14/22 07:51 37.5 C 83 18 203/96 H 93 Room Air PG Care Time/CCT Total # of Minutes Spent Total Time Spent with Patient: Total time spent is greater than 50% in coordination of care (as documented) at patient's floor/unit and/or counseling patient: Coding Level of Care Code 81153 Subseq Hosp Care Lvl 3 Diagnoses Abdominal pain R10.9 Hypokalemia E87.6 Leukocytosis D72.829 Hiatal hernia K44.9 Colitis K52.9 Pancreatic mass K86.89 Malignant melanoma of left lower leg C43.72 Anemia D64.9 Elevated troponin R77.8 UTI (urinary tract infection) N39.0 Superior mesenteric artery stenosis K55.1 Glaucoma H40.9 Paroxysmal atrial fibrillation I48.0 Hypertension I10 Osteopenia M85.80 Transient cerebral ischemia G45.9 Hyperlipidemia E78.5 GERD (gastroesophageal reflux disease) K21.9
[2022-05-14] MEDS: MoRPHine SULFATE CR 15 MG TABCR PO SCH (20:18)
[2022-05-14] MEDS: POTASSIUM CHLORIDE CRTAB 20 MEQ TABCR PO SCH (20:19)
[2022-05-14] MEDS: ATORVASTATIN 10 MG TAB PO SCH (20:19)
[2022-05-14] MEDS: LACTULOSE SYRUP 20 GM/30 ML UDC PO SCH (21:59)
[2022-05-15] MEDS: POTASSIUM CHLORIDE / WTR 10 MEQ/100 ML PLCT IV SCH ×8 (00:09→12:25)
[2022-05-15] MEDS: LACTATED RINGER'S 1,000 ML IV SCH ×2 (03:33→14:56)
[2022-05-15] MEDS ORDERED: dilTIAZem HCL 240 MG CAPCR PO SCH (09:00)
[2022-05-15 09:12] LABS: Calcium 7.7 mg/dl (8.5-10.1); Creatinine Clr Calc Pharmacy 60.5 ml/min; Est GFR (African American) 105.1 ml/min; Est GFR (Non-African American) 90.7 ml/min; Magnesium 1.6 mg/dl (1.7-2.4); Potassium 2.9 mmol/L (3.5-5.1)
--- NOTE | 2022-05-15 09:17 | Gastroenterology Progress Note ---
Date of Service May 15, 2022 Assessment & Plan (1) Hiatal hernia: Plan: UGI series completed 05/13 - partially intrathoracic stomach, no signs of GOO - PPI PO BID - Surgery following (2) Pancreatic mass: Plan: 32 x 26mm uncinate pancreas mass, may be contributing to SMV stenosis - Arranging IP EUS w possible PEG tube placement on 05/16/[address] Fletcher - Hold Anatoliy & Denise (3) Colitis: Plan: Gas filled loops of bowels ? ileus - NPO - Avoid narcotics - Flex sig today by Dr. Hoffman (2 tap water enema for prep), K 2.9, Mg 1.6 Admission and Anticipated Discharge Date Admission Date: May 09, 2022 Supervising Physician Co-Signing Physician Notes Attg add: I reviewed chart and labs -- recommendations as above. Subjective Pt state she had several loose stools. Some nausea, no vomiting. L sided abd tenderness. Review of Systems Review of Systems: All systems reviewed & are unremarkable except as noted in HPI & below Physical Exam Constitutional: WD/WN, vitals as above well groomed, cooperative and comfortable Eyes: PERRL, conjunctivae normal, anicteric sclerae ENMT: external ear and nose normal, oropharynx normal Respiratory: normal respiratory effort, lungs clear to auscultation Cardiovascular: RRR, no murmur, no edema Gastrointestinal (Abdomen): Mildly distended, non-tender, BS present Skin: no rashes, warm and dry no jaundice Psychiatric: A+Ox3, euthymic affect Lymphatic: no lymphedema Results & Data ([facility]) Vital Signs (Past 12 Hours) Vital Signs Temp Pulse Resp BP Pulse Ox O2 Del Method 05/15/22 07:43 37 C 82 16 175/82 H 94 Room Air
[2022-05-15] MEDS: LACTULOSE SYRUP 20 GM/30 ML UDC PO SCH (09:43)
[2022-05-15] MEDS: DORZOLAMIDE/TIMOLOL 22.3/6.8MG/ML 10 ML BTL OP SCH ×2 (09:45→20:51)
[2022-05-15] MEDS: BIMATOPROST 0.01% OP SOLN 2.5 ML BTL OP SCH (09:46)
[2022-05-15] MEDS: ASPIRIN 81 MG ECTAB PO SCH ×2 (09:48→10:41)
[2022-05-15] MEDS: PANTOprazole 40 MG TAB PO SCH ×3 (09:48→20:50)
[2022-05-15] MEDS: POTASSIUM CHLORIDE CRTAB 20 MEQ TABCR PO SCH ×3 (09:48→20:49)
[2022-05-15] MEDS: METOPROLOL TARTRATE 25 MG TAB PO SCH ×3 (09:48→20:50)
[2022-05-15] MEDS: dilTIAZem HCL 120 MG CAPCR PO SCH ×2 (09:48→10:41)
[2022-05-15] MEDS: lisinopril 40 MG TAB PO SCH ×2 (09:49→10:42)
[2022-05-15] MEDS: ENOXAPARIN INJ 40 MG/0.4 ML SYR SQ SCH ×2 (09:49→20:50)
[2022-05-15] MEDS: POLYETHYLENE (MIRALAX) 17 GM PACK PO SCH (09:49)
[2022-05-15] MEDS: FLUTICASONE/VILANTEROL 100/25MCG 14 PUFFS/INHALER INH SCH (09:49)
--- NOTE | 2022-05-15 13:39 | History & Physical Bridge Note ---
Date of Service May 15, 2022 History & Physical Bridge Note I have examined the patient, reviewed the History & Physical and in the interval since the performance of the History & Physical I have noted the following changes of clinical significance: no changes noted
[2022-05-15] MEDS: SPIRONOLACTONE 25 MG TAB PO SCH (15:16)
[2022-05-15] MEDS: metroNIDAZOLE 500 MG/100 ML BAG IV SCH ×2 (15:16→23:10)
[2022-05-15] MEDS: CIPROFLOXACIN / D5W 400 MG/200 ML BAG IV SCH (16:10)
[2022-05-15] MEDS: ATORVASTATIN 10 MG TAB PO SCH (20:49)
[2022-05-15] MEDS: NON-FORMULARY PATIENT'S OWN MED OP SCH (20:50)
[2022-05-16] MEDS: CIPROFLOXACIN / D5W 400 MG/200 ML BAG IV SCH ×2 (03:47→15:37)
[2022-05-16] MEDS: LACTATED RINGER'S 1,000 ML IV SCH ×2 (04:46→15:35)
[2022-05-16] MEDS: metroNIDAZOLE 500 MG/100 ML BAG IV SCH ×2 (06:13→15:37)
[2022-05-16] MEDS: ASPIRIN 81 MG ECTAB PO SCH (09:40)
[2022-05-16] MEDS: dilTIAZem HCL 120 MG CAPCR PO SCH (09:40)
[2022-05-16] MEDS: lisinopril 40 MG TAB PO SCH (09:41)
[2022-05-16] MEDS: SPIRONOLACTONE 25 MG TAB PO SCH (09:41)
[2022-05-16] MEDS: POTASSIUM CHLORIDE CRTAB 20 MEQ TABCR PO SCH ×2 (09:41→20:11)
[2022-05-16] MEDS: PANTOprazole 40 MG TAB PO SCH ×2 (09:42→20:10)
[2022-05-16] MEDS: METOPROLOL TARTRATE 25 MG TAB PO SCH ×2 (09:42→20:11)
[2022-05-16] MEDS: DORZOLAMIDE/TIMOLOL 22.3/6.8MG/ML 10 ML BTL OP SCH ×2 (09:43→20:12)
[2022-05-16 09:45] LABS: Hematocrit (blood only) 28.2 % (34.1-44.9); Hemoglobin 8.9 g/dl (12.0-16.0); Mean Corpuscular Hemoglobin 24.4 pg (25.0-34.0); Mean Corpuscular Hgb Conc 31.6 g/dL (32.0-36.0); Mean Corpuscular Volume 77.3 fL (80.0-100.0); Mean Platelet Volume 9.1 fL (9.4-12.3); Platelet Count 338 K/uL (130-400); RDW Coefficient of Variation 20.7 % (11.5-14.5); RDW Standard Deviation 57.2 fL (36.4-46.3); Red Blood Count 3.65 M/uL (3.93-5.22); White Blood Count 7.85 K/ul (4.8-10.8)
[2022-05-16] MEDS: FLUTICASONE/VILANTEROL 100/25MCG 14 PUFFS/INHALER INH SCH (09:45)
[2022-05-16] MEDS: POLYETHYLENE (MIRALAX) 17 GM PACK PO SCH ×3 (09:45→20:12)
[2022-05-16] MEDS: ENOXAPARIN INJ 40 MG/0.4 ML SYR SQ SCH (09:46)
[2022-05-16] MEDS: BIMATOPROST 0.01% OP SOLN 2.5 ML BTL OP SCH (09:48)
[2022-05-16 10:07] LABS: Creatinine Clr Calc Pharmacy 54.9 ml/min; Est GFR (African American) 101.7 ml/min; Est GFR (Non-African American) 87.7 ml/min
--- NOTE | 2022-05-16 12:01 | Gastroenterology Progress Note ---
Date of Service May 16, 2022 Assessment & Plan (1) Hiatal hernia: Plan: UGI series completed 05/13 - partially intrathoracic stomach, no signs of GOO - PPI PO BID (2) Pancreatic mass: Plan: 32 x 26mm uncinate pancreas mass, may be contributing to SMV stenosis - EUS for panc mass bx, ? PEG tube placement on 05/20/[address] Fletcher - Hold Eliquis & Lovenox (3) Colitis: Plan: Gas filled loops of bowels ? ileus/colitis. Flex sig 05/15 showed signs of ischemic colitis - Cipro/Flagyl PO antibx - FL diet; advance as tolerated but keep NPO 05/20 2022 for EUS procedure - Miralax 17g BID To TID ; avoid Lactulose as it may worsen bowel distension Admission and Anticipated Discharge Date Admission Date: May 09, 2022 Supervising Physician Co-Signing Physician Notes Attg add: I interviewed and examined pt, reviewed chart. Pt with much improved pain today. Hungry. Ren PO. On exam is soft, with improved abd distention. Panc mass - Bx next week. 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 Off AC due to procedure and bleeding risk from AC. Anticipate resuming anti-coag mid next week. Hospitalist to d/w onc service about clot that presumably occured while pt is on Eliquis. Subjective Patient reports that she is passing flatus and bowel movements. Abdomen feels less distended and less tender. No nausea or vomiting, tolerating full liquids diet. Review of Systems Review of Systems: All systems reviewed & are unremarkable except as noted in HPI & below Physical Exam Constitutional: WD/WN, vitals as above well groomed, cooperative and comfortable Eyes: PERRL, conjunctivae normal, anicteric sclerae ENMT: external ear and nose normal, oropharynx normal Respiratory: normal respiratory effort, lungs clear to auscultation Cardiovascular: RRR, no murmur, no edema Gastrointestinal (Abdomen): Soft, mildly tender on the r left upper quadrant area, bowel sounds present Skin: no rashes, warm and dry no jaundice Psychiatric: A+Ox3, euthymic affect Lymphatic: no lymphedema Results & Data ([facility]) Vital Signs (Past 12 Hours) Vital Signs Temp Pulse Resp BP Pulse Ox O2 Del Method 05/16/22 08:04 37 C 91 H 18 142/84 H 97 Room Air
--- NOTE | 2022-05-16 14:31 | GI REPORT ---
Patient Name: Elaine Vasquez Procedure Date: 05/15/2022 1:32 PM Date of : 1935 Admit Type: Inpatient Age: 86 Gender: Female Attending MD: Yasmani Hoffman MD, Procedure: Flexible Sigmoidoscopy Providers: Yasmani Hoffman MD Referring MD: Fede Domingo Md Indications: Abdominal pain, Abnormal CT of the GI tract Medicines: See the Anesthesia note for documentation of the administered medications Complications: No immediate complications. Procedure: Pre-Anesthesia Assessment: - ASA Grade Assessment: III - A patient with severe systemic disease. After obtaining informed consent, the endoscope was passed under direct vision. Throughout the procedure, the patient's blood pressure, pulse, and oxygen saturations were monitored continuously. The Colonoscope was introduced through the anus and advanced to the rectosigmoid junction. The upper endoscope was introduced through the anus and advanced to the left transverse colon. The flexible sigmoidoscopy was accomplished without difficulty. The patient tolerated the procedure well. The quality of the bowel preparation was adequate. Findings: The perianal and digital rectal examinations were normal. There were multiple diverticula in the sigmoid colon. There was a fixed turn in the sigmoid colon. The descending colon was normal. There was circumferential ulceration of the left transverse colon, thumprinting, and luminal narrowing. Exam consistent with ischemic colitis. Recommendation: - Discharge patient to floor. Diet as tolerated. Antibiotics to complete 7 day course. Follow pt for signs of ileus, stricture. Yasmani Hoffman M.D. Yasmani Hoffman MD 05/16/2022 2:31:25 PM This report has been signed electronically. Note Initiated On: 05/15/2022 1:32 PM Number of Addenda: 0 I attest to the content of the Intraoperative Record and orders documented therein, exceptions below {[id number]}
[2022-05-16] MEDS ORDERED: HEPARIN SOD (PORCINE) 1000 UNIT/ML IV ONE (19:00)
[2022-05-16] MEDS: HEPARIN SODIUM/DEXTROSE 25,000 UNITS/500 ML BAG IV SCH (19:18)
[2022-05-16 19:23] LABS: INR 1.2 (0.9-1.1); Partial Thromboplastin Ratio 1.3; Partial Thromboplastin Time 34.9 Seconds (21.0-31.0); Prothrombin Time 13.1 Seconds (9.0-12.0)
--- NOTE | 2022-05-16 19:48 | Hospitalist Progress Note ---
Date of Service May 16, 2022 Assessment & Plan (1) Abdominal pain: Plan: Patient presents with 27 lb unintentional weight loss over past 6 months while undergoing chemotherapy for her melanoma, but most of the weight loss came in the last few weeks. Having epigastric abdominal pain off and on for many months, but presented with 1 week of significantly worsening abdominal pain/bloating, nausea, vomiting, and constipation. On admission, with WBC 26, lactate elevated at 3.5, procalcitonin elevated at 12 She IS afebrile LFTs and lipase are normal CT A/P showed: * Hypodense infiltrative mass, measuring approximately 3 x 2.8 cm, likely arising from the uncinate process. 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 This is consistent with a neoplasm and pancreatic adenocarcinoma is a primary consideration. An infiltrative mesenteric mass could appear similar. GI consultation for consideration for EUS guided biopsy is recommended. * Wall thickening of the transverse colon with mild adjacent stranding. This suggests a nonspecific colitis. Venous ischemic colitis is within the differential given the SMA stenosis/occlusion. * Large hiatal hernia. Moderately distended partially visualized intrathoracic stomach with air-fluid level. Abdominal pain and nausea/vomiting could be secondary to very large hiatal hernia, plus the transverse colitis and also could be related to the pancreatic mass and SMA stenosis or occlusion Lactic acidosis now resolved with IV fluids. There is no portal venous gas or pneumatosis noted on CT Her abdominal pain and nausea is slightly improved since admission. Still having some waves of severe pain especially with movement. As per admitting discussion with GI, there is no role for vascular intervention for the near/complete occlusion of the SMV. Anatomically, occlusion of this could potentially cause the transverse colitis. The pancreatic mass certainly could be a pancreatic cancer. Alternatively, perhaps metastatic disease from her known metastatic melanoma? Leukocytosis improving Started IV Zosyn on admission -Cautiously advance diet to clear liquids as per GI -Low threshold to place NG tube if continues to vomit given large hiatal hernia- would decompress this -Add IV Tylenol as needed for mild to moderate pain and add low-dose IV Dilaudid as needed for moderate to severe pain -Continue IV fluid hydration with LR but lowered to 100 mL/h to avoid volume overload -Continue IV Zosyn for colitis -Needs EUS for biopsy of pancreatic mass which can potentially be done as an inpatient early next week when advanced endoscopist is available 05/11 Patient tolerated liquid diet, advance to full liquid Discussed with GI recommend surgery consult for large hiatal hernia and if the patient is a candidate for PEG tube Proceed with CT of abdomen with pancreas protocol 05/12 CT of abdomen with pancreas protocol confirmed pancreatic mass Patient is going for endoscopic ultrasound with biopsy tomorrow Pain management started on MS Contin 05/14 The patient has large multiple bowel movements Patient was supposed to go for EUS possibly on Thursday -Upper GI series performed on Thursday showed partial intrathoracic stomach -Supposed to have flex sigmoidoscopy today canceled due to hypokalemia 05/16 EUS with biopsies cancer hopefully happen on Thursday, stop full dose Lovenox, started on heparin drip (2) Pancreatic mass: Plan: Finesse above (3) Superior mesenteric artery stenosis: Plan: Hypodense infiltrative mass, measuring approximately 3 x 2.8 cm, likely arising from the uncinate process. 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, despite the the patient has been on apixaban, consulted with oncology, started on heparin drip, I discussed with oncology who is on the patient did thrombosis could be secondary to stenosis due to pancreatic mass (4) Ischemic colitis: Plan: Evidence of ischemic colitis on colonoscopy performed on 05/15 Patient discharged on Cipro and Flagyl intravenously and was switched to oral Patient initially started on Zosyn upon admission to the hospital Patient had leukocytosis of 26,000 most likely secondary to ischemic colitis that is improving Proceed with adequate hydration Advance diet to heart healthy diet (5) Hypokalemia: Plan: Severe hypokalemia with potassium 2.1 on 05/14 etiology unclear, patient is taking calcium channel melquiades which can cause hypokalemia otherwise there is no other etiology for her hypokalemia Patient received multiple rounds of KCl Patient started on K-Dur 40 mg twice daily Patient started on potassium sparing agent, spironolactone 100 mg daily Patient started on lisinopril 40 mg daily Check potassium level tomorrow (6) Hypertension: Plan: Uncontrolled hypertension, BP meds has been adjusted, monitor for now - (7) UTI (urinary tract infection): Plan: The patient has active urine sediment, the culture is not conclusive due to contamination Patient started on Zosyn (8) Hiatal hernia: Plan: As above, large (9) Malignant melanoma of left lower leg: Plan: - 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 - Continues to follow with [place] [facility]. (10) Anemia: Plan: Hemoglobin hemoconcentrated on admission and today is at her baseline at 9.9 Had an IV iron infusion with her oncologist at [place] several weeks ago Follow CBC, no evidence of blood loss at this time Could be related to ongoing chemotherapy with melanoma versus occult GI blood loss-perhaps Laith ulcers from large hiatal hernia? She cannot recall that she has ever had a colonoscopy EGD/EUS if GI recommended (11) Elevated troponin: Plan: Troponin checked on 05/10 due to epigastric pain and nausea/vomiting and found to be elevated at 237 Repeat up slightly to 278 Most likely myocardial demand ischemia secondary to GI issues and abdominal pain with nausea/vomiting, colitis as above ECG without ischemic changes Check echocardiogram for wall motion abnormalities Continue to trend serial troponin until peaks No known underlying CAD Remains on aspirin and statin (12) Glaucoma: Plan: Continue home eyedrops (13) Paroxysmal atrial fibrillation: Plan: - Remains in NSR on examination and by EKG on admission. -Continue metoprolol and diltiazem -Hold home Eliquis now and start therapeutic Lovenox 40 Mg SQ twice daily in preparation for possible surgical procedure 05/16 Now on Heparin drip (14) Transient cerebral ischemia: Plan: Continue home aspirin, statin History of TIA (15) Hyperlipidemia: Plan: - Continue statin. (16) GERD (gastroesophageal reflux disease): Plan: - Continue PPI. Plan DVT prophylaxis-therapeutic Lovenox Disposition-continued stay on med/surg. DNR/DNI Discussed her care at the bedside with her and son later in the day. Admission and Anticipated Discharge Date Admission Date: May 09, 2022 Subjective Patient reports that she is passing flatus and bowel movements. Abdomen feels less distended and less tender. No nausea or vomiting, tolerating full liquids diet. Results & Data Results & Data ([facility]) Vital Signs (Past 12 Hours) Vital Signs Temp Pulse Resp BP Pulse Ox O2 Del Method 05/16/22 14:34 37.1 C 89 18 161/88 H 95 Room Air 05/16/22 08:04 37 C 91 H 18 142/84 H 97 Room Air PG Care Time/CCT Total # of Minutes Spent Total Time Spent with Patient: Total time spent is greater than 50% in coordination of care (as documented) at patient's floor/unit and/or counseling patient: Coding Level of Care Code 71085 Subseq Hosp Care Lvl 3 Diagnoses Abdominal pain R10.9 Pancreatic mass K86.89 Superior mesenteric artery stenosis K55.1 Ischemic colitis K55.9 Hypokalemia E87.6 Hypertension I10 UTI (urinary tract infection) N39.0 Hiatal hernia K44.9 Malignant melanoma of left lower leg C43.72 Anemia D64.9 Elevated troponin R77.8 Glaucoma H40.9 Paroxysmal atrial fibrillation I48.0 Transient cerebral ischemia G45.9 Hyperlipidemia E78.5 GERD (gastroesophageal reflux disease) K21.9
[2022-05-16] MEDS: ATORVASTATIN 10 MG TAB PO SCH (20:11)
[2022-05-16] MEDS: NON-FORMULARY PATIENT'S OWN MED OP SCH (20:12)
[2022-05-16] MEDS: CIPROFLOXACIN 500 MG TAB PO SCH (22:03)
[2022-05-16] MEDS: metroNIDAZOLE 500 MG TAB PO SCH (22:03)
[2022-05-17 01:47] LABS: Partial Thromboplastin Ratio 2.1
[2022-05-17] MEDS: LACTATED RINGER'S 1,000 ML IV SCH ×3 (02:00→23:05)
[2022-05-17 07:02] LABS: Hematocrit (blood only) 27.8 % (34.1-44.9); Hemoglobin 8.7 g/dl (12.0-16.0); Mean Corpuscular Hemoglobin 24.2 pg (25.0-34.0); Mean Corpuscular Hgb Conc 31.3 g/dL (32.0-36.0); Mean Corpuscular Volume 77.2 fL (80.0-100.0); Mean Platelet Volume 8.9 fL (9.4-12.3); Platelet Count 327 K/uL (130-400); RDW Coefficient of Variation 20.6 % (11.5-14.5); RDW Standard Deviation 56.6 fL (36.4-46.3); White Blood Count 7.59 K/ul (4.8-10.8)
[2022-05-17 07:45] LABS: BUN Creatinine Ratio 11.7 (10-20); Calcium 7.7 mg/dl (8.5-10.1); Creatinine Clr Calc Pharmacy 47.6 ml/min; Est GFR (Non-African American) 83.7 ml/min; Potassium 3.4 mmol/L (3.5-5.1)
[2022-05-17 07:55] LABS: Partial Thromboplastin Ratio 1.8
[2022-05-17 08:00] LABS: Partial Thromboplastin Time 49.7 Seconds (21.0-31.0)
--- NOTE | 2022-05-17 08:29 | Consultation ---
Date of Consultation May 16, 2022 Assessment & Plan (1) Pancreatic mass: 2.8 x 3 cm uncinate pancreatic mass presenting with abdominal pain/nausea and vomiting with symptoms now well controlled with medications. This is in the context of a history of multiply and regionally recurrent melanoma. It is also in the context, however, of her family history of breast and pancreatic cancer. Immediate issues of pain/nausea/vomiting have been effectively managed with augmented medications. Going forward jewell issues are implications of the occlusion of the superior mesenteric vein and achieving a diagnosis of pancreatic mass to in turn set the stage for discussions of prognosis and treatment options. Obviously, a primary pancreatic cancer is in the differential diagnosis particular given family history and potential for germline family cancer syndrome. if that is the ultimate diagnosis, will need augmented staging to include 2-dimensional chest imaging. Might want to consider PET scan as an alternative way to determine potential presence of active regional lymph nodes and as well assess the chest. More rigorous pancreatic protocol abdominal CT may also be important combined with consultation with a hepatobiliary oncologic surgeon to address ultimate multidisciplinary treatment plan both with regards to the malignancy per se but also with regards to the issues of superior mesenteric vein occlusion. The aggression with which a pancreatic malignancy would be approached, however, will need to take into account her recurrent issues with melenoma If histology is more consistent with a metastasis from her melanoma, PET scan would be useful in that circumstance as well. If this is an isolated area of activity there could be some consideration to SBRT with continuation of her current systemic regimen versus exploration of investigational protocols for other targeted therapies. (2) Malignant melanoma of left lower leg: Multiply recurrent melanoma which seems to have stabilized on systemic treatment but obviously remains a significant issue with regards to her intermediate long- term prognosis. Further treatment of the melanoma and the aggression with which she is approached overall will be modulated by the specific findings of the work-up for her pancreatic mass (3) residential current use of anticoagulant therapy: Patient has been on anticoagulation for atrial fibrillation. With a question of superior mesenteric vein thrombosis, there is an associated question to as whether she had "failed" apixaban. That thrombosis is discussed separately but as an isolated issue of thrombosis in a clearly distorted vein without signs of new thrombosis with regards to her atrial fibrillation or elsewhere in her venous system, it is not clear that apixaban was completely ineffective. There is the issue of hypercoagulability related to possibly metachronous primary pancreatic cancer but the DOAC's are more recently felt to be an acceptable alternative even in that setting. Given both the uncertainty as to the effectiveness of apixaban but even more the need for flexibility of anticoagulation given anticipated upcoming procedures and the potential for GI bleeding, I have suggested that heparin intravenously may be a short-term preferred approach. This allows us to be exquisitely specific in achieving confirmably therapeutic anticoagulation, allows for immediate reversibility if there is an acute episode of GI bleeding as well as easily scheduled reversibility for any procedures, and certainly would be one of the preferred salvage options if there is progressive thrombosis on a DOAC. As we finalize needed diagnostic procedures and determine the long-term stability of her GI tract, we can reconsider her systemic options for the longer term which might include a cautious return to apixaban versus continuing at least in the intermediate term with enoxaparin. Warfarin has the advantage of an alternative mechanism to the DOAC's and easy reversibility but has been historically felt to be perhaps less optimal in the specific setting of malignancy associated hypercoagulability. (4) Family history of cancer: Her family history of breast cancer but especially the family history of holcomb creatic cancer in her brother would suggest the potential for germline family cancer syndrome mutation particularly a BRCA. 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 As above, we are suggesting alternative anticoagulation for the time being though without multisite thrombosis consistent with Trousseau syndrome or other clear new thrombosis elsewhere, it is not clear whether any thrombosis in the SMV truly represents ineffectiveness of apixaban versus just being a physical consequence of the severe distortion there. 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 May want to do follow-up imaging after she has been on alternative anticoagulation for a time and would not be completely inappropriate to do a more specific pancreatic protocol imaging sequence if the biopsy shows adenocarcinoma of the pancreas. Could consult with radiology as to how best we can reassess the flow through the SMV but at some point there may need to be a specific discussion as to whether we can modulate vascular flow to the colon and/or whether we need to consider more aggressive regional colonic resection if the ischemic colitis becomes more problematic (6) Iron deficiency anemia: Microcytic anemia with a low normal ferritin certainly indicates an element of iron deficiency anemia potentially with low-level occult losses from the area of ischemic colitis. Her Red cell iron deficit is approximately 400 mg. Would suggest 2 doses of Venofer 300 mg approximate 72 hours to initially replete her iron stores. Plan 1. As above, have suggested a conversion heparin anticoagulation with considerations of long-term options to follow ultimate diagnosis of her pancreatic mass 2. Histologic definition of pancreatic mass will be pivotal in terms of prognosis and treatment options as detailed above 3. Would supplement iron with 2 doses of Venofer 300 mg in 72 hours apart 4. May need more dedicated pancreatic imaging and vascular and/or pancreatobiliary oncologic surgery review to determine both potential approaches to the pancreatic mass once we have defined it but as well the consequences of her SMV occlusion and whether or not that is going to require more than altered anticoagulant therapy. 5. Germline genetic testing would be important in time both to determine the patient's treatment options but also implications for other family members 6. She already has significant prognostic issues with respect to her melanoma and whether the pancreatic mass represents a further metastasis from that versus a metachronous primary, her prognosis and the treatment approaches are destined to become more complicated. She seems quite fit and even in her mid 80s would certainly be a candidate for ongoing appropriately aggressive oncologic therapy but given the increasingly complicated and challenging prognosis, palliative care discussions both specifically with regards to symptom management but also in setting the stage for broader determinations of the parameters of long-term care will be important History of Present Illness Reason for Consultation: Patient with a history of multiply locally and regionally recurrent melanoma but also with a family history of breast and pancreatic cancer who presents with a pancreatic mass with nausea/vomiting and abdominal pain Attending Physician: Fede Domingo MD History of Present Illness Spunky 86-year-old woman who in 2017 was diagnosed with melanoma in the left lower extremity. Initial presentation was an isolated T1b lesion but it subsequently recurred with satellite nodules subject to a series of local re-resections but ultimately with resections ipsilateral groin recurrence as well. With aggressive local recurrence she was initially treated with systemic nivolumab but as she showed more extensive recurrence in the groin she has been recently treated with a combination of T- VEC and pembrolizumab was what was perceived as at least partial response. Selected notes from the [facility] oncology team treating her for her melanoma are incorporated into the provider notes in [facility]. Notably there is a family history of breast cancer in her mother and a brother with pancreatic cancer. No germline testing has been done on either individual to her knowledge. She presents with a 27 pound weight loss, nausea/vomiting and a pancreatic mass. She had severe pain on presentation but reports that she is achieved good control with the medical regimen instituted since admission. Abdominal/pelvic CT scans are included below. In addition the pancreatic masses seems to be severe narrowing of the superior mesenteric vein with apparently some unofficial interpretation as new thrombosis there. Patient has been historically on apixaban as part of approach to her atrial fibrillation. She has a remote history of smoking but stopped in 1967 she drinks only minimal alcohol. -Note that a 05/15/2022 sigmoidoscopy did show an area of ischemic colitis Allergies Allergy/AdvReac Type Severity Reaction Status Date / Time nivolumab [From Opdivo] Allergy Severe Unknown Verified 05/15/22 12:25 shellfish derived Allergy Severe "violently Verified 05/15/22 12:25 sick" after eating lobster shrimp Allergy Intermediate VIOLENTLY Verified 05/15/22 12:25 SICK pseudoephedrine AdvReac Severe PASSED Verified 05/15/22 12:25 OUT, SPACEY iodine AdvReac Intermediate SICK TO Verified 05/15/22 12:25 STOMACH Penicillins AdvReac Intermediate SICK TO Verified 05/15/22 12:25 STOMACH propoxyphene AdvReac Intermediate HYPER Verified 05/15/22 12:25 tetanus toxoid, adsorbed AdvReac Intermediate "OUT OF Verified 05/15/22 12:25 ORBIT" Home Medications Medication Instructions Recorded Confirmed Type aspirin 81 mg tablet,delayed 81 mg PO DAILY #90 tabs 12/14/18 05/09/22 Rx release (Veena Low Dose Aspirin) biotin 1 mg tablet 1 mg PO DAILY 12/27/18 05/09/22 History cholecalciferol (vitamin D3) 25 1,000 units PO DAILY 12/27/18 05/09/22 History mcg (1,000 unit) tablet clindamycin HCl 150 mg capsule 150 mg PO DIRECTED PRN 1 HR 12/27/18 05/09/22 History PRIOR TO DENTAL PROCEDURES docusate sodium 100 mg capsule 100 mg PO HS 12/27/18 05/09/22 History triamcinolone acetonide 0.1 % 1 appln topical DIRECTED 11/04/19 05/09/22 History topical cream bimatoprost 0.01 % eye drops 1 drp ophthalmic (eye) DAILY 02/11/21 05/09/22 History (Lumigan) dorzolamide 22.3 mg-timolol 6.8 1 drp OPL BID 02/11/21 05/09/22 History mg/mL eye drops (Cosopt) diltiazem HCl 120 mg 120 mg PO DAILY #90 caps 06/26/21 05/09/22 Rx capsule,extended release 24 hr, controlled metoprolol tartrate 25 mg tablet 25 mg PO BID #180 tabs 07/08/21 05/09/22 Rx potassium chloride 10 mEq 10 meq PO DAILY #90 caps 07/26/21 05/09/22 Rx capsule,extended release diclofenac sodium 1 % topical gel 2 g topical QID 08/15/21 05/09/22 History (Arthritis Pain (diclofenac)) nepafenac 0.1 % eye 1 drp OPB DAILY 08/15/21 05/09/22 History drops,suspension (Nevanac) omeprazole 20 mg capsule,delayed 20 mg PO DAILY #90 caps 01/10/22 05/09/22 Rx release apixaban 2.5 mg tablet 2.5 mg PO BID 01/14/22 05/09/22 History fluticasone furoate 100 1 inh inhalation DAILY #60 ea 01/21/22 05/09/22 Rx mcg-vilanterol 25 mcg/dose inhalation powder (Breo Ellipta) Iron Infusion 0 dose IV DIRECTED PRN 05/09/22 05/09/22 History EXHAUSTION acetaminophen 650 mg 650 mg PO TID 05/09/22 05/09/22 History tablet,extended release aluminum hydrox-magnesium carb 160 1 tab PO HS 05/09/22 05/09/22 History mg-105 mg chewable tablet atorvastatin 10 mg tablet 10 mg PO HS 05/09/22 05/09/22 History diphenhydramine HCl 25 mg capsule 25 mg PO DIRECTED PRN 1 HR 05/09/22 05/09/22 History (Benadryl) PRIOR TO CT SCAN food supplemt, lactose-reduced 1 ea PO DAILY 05/09/22 05/09/22 History pembrolizumab 25 mg/mL intravenous 0 mg IV .Q3WK 05/09/22 05/09/22 History solution (Keytruda) prednisone 50 mg tablet 150 mg PO DIRECTED PRN 1 HR 05/09/22 05/09/[address]AN Patient History Medical History Atrial fibrillation with rapid ventricular response Bigeminal rhythm Glaucoma Melanoma of lower leg Migraine Pancreatic mass Plantar fasciitis of right foot Superior mesenteric artery stenosis Tinnitus Surgical History History of back surgery History of melanoma excision History of neck surgery History of total hip replacement S/P cataract surgery S/P correction of deviated nasal septum S/P dilation and curettage S/P laser trabeculoplasty of eye Anterior chamber S/P tonsillectomy Family History Mother Breast cancer Brother Cancer Father Congestive heart failure Myocardial infarction Denies family history of Ovarian cancer Prostate cancer Colorectal cancer Social History Smoking Status: Former smoker Tobacco Type: Cigarettes Second Hand Exposure: No; Do You Dip or Chew Tobacco: No; Tobacco Cessation Education Requested by Patient: No Hx Alcohol Use: No Hx Substance Use: No Preferred Language: German Communication Ability: Effective Visual Impairment: No Limitations Hearing Ability: Normal Research Librarian Required: Yes Beliefs That Will Affect Care: None marital status: Current Living Situation: Spouse Current Living Situation Comment: cats current occupational status: retired Other Information That Helps Us Care for You: No Feels Safe at Home: Yes Safety Concerns: Feels Safe At This Time Dental Care, Regularly: Yes Physical Activity Frequency: 3-4 Times per Week Physical Activity Frequency Comment: TREADMILL Seatbelt Use: always Sunscreen Use: Yes Assistive Devices: Cane and Walker Physical Exam Physical Exam: Patient is alert, ambulatory, and currently seems in minimal distress. There is no scleral or systemic icterus She has no pathologic adenopathy external Lungs are clear Cardiac rhythm is irregular but without pathological murmur Abdomen is currently soft, there is some mild upper abdominal tenderness but without dramatic guarding or rigidity Extremities show no signs of DVT Results & Data ([facility]) Vital Signs (Past 12 Hours) Vital Signs Temp Pulse Resp BP Pulse Ox O2 Del Method 05/17/22 07:44 36.8 C 85 16 171/94 H 96 Room Air Laboratory Results Abnormal lab results 05/16/22 05/16/22 05/16/22 Range/Units 09:10 09:10 18:44 RBC 3.65 L (3.93-5.22) M/uL Hgb 8.9 L (12.0-16.0) g/dl Hct 28.2 L (34.1-44.9) % MCV 77.3 L (80.0-100.0) fL MCH 24.4 L (25.0-34.0) pg MCHC 31.6 L (32.0-36.0) g/dL RDW Std Deviation 57.2 H (36.4-46.3) fL RDW Coeff of Pawan 20.7 H (11.5-14.5) % MPV 9.1 L (9.4-12.3) fL PT 13.1 H (9.0-12.0) Seconds INR 1.2 H (0.9-1.1) APTT 34.9 H (21.0-31.0) Seconds Potassium (3.5-5.1) mmol/L Creatinine 0.52 L (0.6-1.2) mg/dl Glucose (70-99(Fasting)) mg/dl Calcium (8.5-10.1) mg/dl 05/17/22 05/17/22 05/17/22 Range/Units 01:10 06:47 06:47 RBC 3.60 L (3.93-5.22) M/uL Hgb 8.7 L (12.0-16.0) g/dl Hct 27.8 L (34.1-44.9) % MCV 77.2 L (80.0-100.0) fL MCH 24.2 L (25.0-34.0) pg MCHC 31.3 L (32.0-36.0) g/dL RDW Std Deviation 56.6 H (36.4-46.3) fL RDW Coeff of Pawan 20.6 H (11.5-14.5) % MPV 8.9 L (9.4-12.3) fL PT (9.0-12.0) Seconds INR (0.9-1.1) APTT 57.0 H* (21.0-31.0) Seconds Potassium 3.4 L (3.5-5.1) mmol/L Creatinine (0.6-1.2) mg/dl Glucose 106 H (70-99(Fasting)) mg/dl Calcium 7.7 L (8.5-10.1) mg/dl 05/17/22 Range/Units 06:47 RBC (3.93-5.22) M/uL Hgb (12.0-16.0) g/dl Hct (34.1-44.9) % MCV (80.0-100.0) fL MCH (25.0-34.0) pg MCHC (32.0-36.0) g/dL RDW Std Deviation (36.4-46.3) fL RDW Coeff of Pawan (11.5-14.5) % MPV (9.4-12.3) fL PT (9.0-12.0) Seconds INR (0.9-1.1) APTT 49.7 H* (21.0-31.0) Seconds Potassium (3.5-5.1) mmol/L Creatinine (0.6-1.2) mg/dl Glucose (70-99(Fasting)) mg/dl Calcium (8.5-10.1) mg/dl Diagnostic Findings Abdomen/Pelvis CT 05/09/22 12:40 CT OF THE ABDOMEN AND PELVIS WITH CONTRAST CLINICAL HISTORY: Abdominal pain and nausea. COMPARISON STUDY: Right upper quadrant ultrasound March 08, 2021. PET/CT January 07, 2021. TECHNIQUE: Following IV administration of 89 mL of Optiray, axial images of the abdomen and pelvis were obtained from the lung bases to the proximal femurs. Images were reviewed in the axial, sagittal, and coronal planes. IV contrast was administered without complication. Automated exposure control was utilized for the study. A dose lowering technique was utilized adhering to the principles of ALARA. CT DOSE: 240.90 mGy.cm FINDINGS: A large hiatal hernia with partially intrathoracic stomach is partially imaged on this exam. Intrathoracic portion of the stomach is moderately distended with air-fluid level. No pneumatosis, free air or portal venous gas is present. Ground glass opacities within the right lower lungs favor atelectasis. A large right renal cyst measuring 13 cm is noted. A few smaller renal cysts are present. There are multiple hepatic cysts. There is no hydronephrosis. The adrenal glands are unremarkable. Note is made of a subtle hypodense mass likely arising from the uncinate process of the pancreas on axial image 173 of 391. This measures approximately 3 x 2.8 cm. 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 There is no biliary or pancreatic ductal dilatation. No peripancreatic or pericholecystic stranding is noted. There is no evidence for a bowel obstruction. The appendix is not visualized. There is a moderate amount of stool within the transverse colon. Wall thickening of the transverse colon with mild adjacent stranding is present. There is no abscess. A pessary device is in place. There is no free fluid. No abscess is present. Right hip arthroplasty and postoperative findings within the spine are present. The caliber of the abdominal aorta is normal. The celiac axis is patent. 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 No acute fractures within the lumbar spine, pelvis or hips are identified. IMPRESSION: 1. Hypodense infiltrative mass, measuring approximately 3 x 2.8 cm, likely arising from the uncinate process. 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 This is consistent with a neoplasm and pancreatic adenocarcinoma is a primary consideration. An infiltrative mesenteric mass could appear similar. GI consultation for consideration for EUS guided biopsy is recommended. 2. Wall thickening of the transverse colon with mild adjacent stranding. This suggests a nonspecific colitis. Venous ischemic colitis is within the differential given the SMV stenosis/occlusion. 3. Large hiatal hernia. Moderately distended partially visualized intrathoracic stomach with air-fluid level. ACT 112: Positive. There are findings on this exam that require communication between the performing entity and the patient following Patient Test Result Information Act ([place] Act 112) guidelines. Electronically signed by: Armin Garcia M.D. 05/09/2022 3:01 PM Chest X-Ray 05/10/22 11:45 XR chest 1V portable CLINICAL HISTORY: eval hiatal hernia TECHNIQUE: Single frontal radiograph of the chest was obtained. Comparison: None available at the time of this dictation. FINDINGS: No lines and tubes are seen. The cardiomediastinal silhouette is normal. The lungs are clear. Moderate hiatal hernia is seen. IMPRESSION: Moderate hiatal hernia. Otherwise no acute abnormalities. ACT 112: Negative or not required by law. Electronically signed by: Pedro Kirk M.D. 05/10/2022 12:27 PM KUB X-Ray 05/10/22 11:45 XR KUB/Abdomen 1 view CLINICAL HISTORY: eval hiatal hernia TECHNIQUE: 1 view of the abdomen was obtained. Comparison: Comparison is made to CT abdomen pelvis 05/09/2022 FINDINGS: Posterior fixation hardware is seen in the spine and scoliosis is noted. There is a right hip total arthroplasty. A hiatal hernia is partially visualized. The bowel gas pattern is nonobstructive. A moderate amount of stool is noted within the large bowel. IMPRESSION: A hiatal hernia is seen. ACT 112: Negative or not required by law. Electronically signed by: Pedro Kirk M.D. 05/10/2022 12:37 PM KUB X-Ray 05/11/22 17:14 KUB HISTORY: abd distention COMPARISON: KUB 05/10/2022. FINDINGS: There is again noted a large hiatus hernia. Mildly dilated gas-filled loops of large and small bowel are seen throughout the abdomen. This is similar to the prior study. There is a right total hip arthroplasty, posterior fusion hardware within the lumbar spine, and a pessary device again noted. Levoscoliosis of the lumbar spine. Moderate well-formed stool within the colon. No renal calculi. No ureteral calculi. No pneumoperitoneum or pneumatosis. IMPRESSION: 1. Mildly dilated gas-filled loops of large and small bowel are again seen throughout the abdomen. This favors a mild ileus. A partial small bowel obstr uction could also have a similar appearance. Continued follow-up recommended. 2. Moderate well-formed stool within the colon. 3. Large hiatus hernia. ACT 112: Negative or not required by law. Electronically signed by: Iron Olivares M.D. 05/11/2022 7:[address] 05/12/22 10:37 CT abdomen wo/w con CLINICAL HISTORY: CT abd w pancrease PROTOCHOL,r/o pancreatic mass TECHNIQUE: Helical axial images of the abdomen were obtained. Automated dose lowering techniques and/or adjustment according to patient size were utilized for this exam. This exam was performed with intravenous contrast. CT DOSE: 492.43 mGy.cm Comparison: Comparison is made to CT abdomen pelvis 05/09/2022 and PET/CT 01/07/2021 FINDINGS: Lower chest: Bibasilar atelectasis versus scarring is seen. Liver: Periportal edema is seen. A few tiny cysts are noted in the liver. Gallbladder and biliary tree: No calcified gallstones. Normal caliber wall. No intra- or extrahepatic biliary ductal dilation. Pancreas: There is an ill-defined mass in the uncinate process of the pancreas measuring approximately 32 x 26 mm. Spleen: Splenule is incidentally noted. Adrenals: Unremarkable. Kidneys and ureters: Right renal cysts are unchanged. Bowel: A large hiatal hernia contains almost the entirety of the stomach. Thickening of the sigmoid flexure of the colon is again seen. Lymph nodes Retroperitoneal: Unremarkable. Mesenteric: Unremarkable. Peritoneum: Normal. Vessels: Again noted is significant narrowing of the portal/superior mesenteric vein as it traverses the uncinate process mass. No judy thrombus is definitely seen. Abdominal wall: Unremarkable. Bones: Degenerative changes in the visualized spine. Posterior fixation hardware is seen along with lumbar scoliosis. IMPRESSION: 1. Redemonstration of a poorly defined uncinate process mass. If not previously characterized, tissue sampling is recommended. 2. There is narrowing of the superior mesenteric vein as it traverses the area of the mass. No definite superior mesenteric vein thrombus, however the vein is narrowed by the uncinate process mass. 3. Thickening of the sigmoid flexure of the colon is nonspecific and may represent infectious/inflammatory colitis. 4. Large hiatal hernia which appears to be chronic. ACT 112: Negative or not required by law. Electronically signed by: Pedro Kirk M.D. 05/12/2022 9:40 AM Upper GI Series w/ Air Contrast 05/13/22 08:00 [place] GI series CLINICAL HISTORY: Evaluate passage of contrast through hiatal hernia COMPARISON STUDY: CT of the abdomen and pelvis May 12, 2022. FLUOROSCOPY TIME: 1.2 minutes. FLUOROSCOPIC IMAGES: 22 TECHNIQUE AND FINDINGS: Single contrast upper GI series was performed. Mucosal detail is diminished on this exam. No esophageal mass or stricture is noted. There is a large sliding type hiatal hernia. The GE junction, fundus, cardia and proximal to mid body of the stomach are within the chest. Contrast passed freely into the distal stomach and duodenum. No contrast extravasation was noted. Postoperative findings within the spine are incidentally noted as well as thoracolumbar spine scoliosis. IMPRESSION: 1. Large sliding type hiatal hernia with partially intrathoracic stomach. 2. No evidence of gastric outlet obstruction. ACT 112: Negative or not required by law. Electronically signed by: Armin Garcia M.D. 05/13/2022 10:26 AM KUB X-Ray 05/14/22 09:17 XR KUB/Abdomen 1 view CLINICAL HISTORY: abd distension TECHNIQUE: 1 view of the abdomen was obtained. Comparison: Comparison is made to abdomen radiograph 05/11/[address] abdomen pelvis 05/12/2022 FINDINGS: Lung bases are unremarkable. Posterior fixation hardware and levoscoliosis noted. Right hip arthroplasty is seen. The bowel gas pattern is nonobstructive. Enteric contrast is noted likely from prior CT. IMPRESSION: Nonobstructive bowel gas pattern. There are mildly gas-distended loops of small bowel without judy obstruction. ACT 112: Negative or not required by law. Electronically signed by: Pedro Kirk M.D. 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
[2022-05-17] MEDS: DORZOLAMIDE/TIMOLOL 22.3/6.8MG/ML 10 ML BTL OP SCH ×2 (09:30→20:34)
[2022-05-17] MEDS: CIPROFLOXACIN 500 MG TAB PO SCH ×2 (09:31→20:34)
[2022-05-17] MEDS: metroNIDAZOLE 500 MG TAB PO SCH ×3 (09:31→20:33)
[2022-05-17] MEDS: dilTIAZem HCL 180 MG CAPCR PO SCH (09:32)
[2022-05-17] MEDS: PANTOprazole 40 MG TAB PO SCH ×2 (09:32→20:34)
[2022-05-17] MEDS: POTASSIUM CHLORIDE CRTAB 20 MEQ TABCR PO SCH ×2 (09:33→20:34)
[2022-05-17] MEDS: lisinopril 40 MG TAB PO SCH (09:33)
[2022-05-17] MEDS: METOPROLOL TARTRATE 25 MG TAB PO SCH ×2 (09:33→20:33)
[2022-05-17] MEDS: SPIRONOLACTONE 25 MG TAB PO SCH (09:34)
[2022-05-17] MEDS: POLYETHYLENE (MIRALAX) 17 GM PACK PO SCH (09:34)
[2022-05-17] MEDS: FLUTICASONE/VILANTEROL 100/25MCG 14 PUFFS/INHALER INH SCH (09:34)
[2022-05-17] MEDS: ASPIRIN 81 MG ECTAB PO SCH (09:34)
[2022-05-17] MEDS: BIMATOPROST 0.01% OP SOLN 2.5 ML BTL OP SCH (09:48)
[2022-05-17] MEDS ORDERED: POLYETHYLENE (MIRALAX) 17 GM PACK PO PRN (10:07)
[2022-05-17] MEDS ORDERED: SPIRONOLACTONE 25 MG TAB PO SCH (10:30)
[2022-05-17] MEDS ORDERED: SPIRONOLACTONE 100 MG TAB PO ONE (11:16)
--- NOTE | 2022-05-17 19:05 | Hospitalist Progress Note ---
Date of Service May 17, 2022 Assessment & Plan (1) Abdominal pain: Plan: Patient presents with 27 lb unintentional weight loss over past 6 months while undergoing chemotherapy for her melanoma, but most of the weight loss came in the last few weeks. Having epigastric abdominal pain off and on for many months, but presented with 1 week of significantly worsening abdominal pain/bloating, nausea, vomiting, and constipation. On admission, with WBC 26, lactate elevated at 3.5, procalcitonin elevated at 12 She IS afebrile LFTs and lipase are normal CT A/P showed: * Hypodense infiltrative mass, measuring approximately 3 x 2.8 cm, likely arising from the uncinate process. 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 This is consistent with a neoplasm and pancreatic adenocarcinoma is a primary consideration. An infiltrative mesenteric mass could appear similar. GI consultation for consideration for EUS guided biopsy is recommended. * Wall thickening of the transverse colon with mild adjacent stranding. This suggests a nonspecific colitis. Venous ischemic colitis is within the differential given the SMA stenosis/occlusion. * Large hiatal hernia. Moderately distended partially visualized intrathoracic stomach with air-fluid level. Abdominal pain and nausea/vomiting could be secondary to very large hiatal hernia, plus the transverse colitis and also could be related to the pancreatic mass and SMA stenosis or occlusion Lactic acidosis now resolved with IV fluids. There is no portal venous gas or pneumatosis noted on CT Her abdominal pain and nausea is slightly improved since admission. Still having some waves of severe pain especially with movement. As per admitting discussion with GI, there is no role for vascular intervention for the near/complete occlusion of the SMV. Anatomically, occlusion of this could potentially cause the transverse colitis. The pancreatic mass certainly could be a pancreatic cancer. Alternatively, perhaps metastatic disease from her known metastatic melanoma? Leukocytosis improving Started IV Zosyn on admission -Cautiously advance diet to clear liquids as per GI -Low threshold to place NG tube if continues to vomit given large hiatal hernia- would decompress this -Add IV Tylenol as needed for mild to moderate pain and add low-dose IV Dilaudid as needed for moderate to severe pain -Continue IV fluid hydration with LR but lowered to 100 mL/h to avoid volume overload -Continue IV Zosyn for colitis -Needs EUS for biopsy of pancreatic mass which can potentially be done as an inpatient early next week when advanced endoscopist is available 05/11 Patient tolerated liquid diet, advance to full liquid Discussed with GI recommend surgery consult for large hiatal hernia and if the patient is a candidate for PEG tube Proceed with CT of abdomen with pancreas protocol 05/12 CT of abdomen with pancreas protocol confirmed pancreatic mass Patient is going for endoscopic ultrasound with biopsy tomorrow Pain management started on MS Contin 05/14 The patient has large multiple bowel movements Patient was supposed to go for EUS possibly on Thursday -Upper GI series performed on Thursday showed partial intrathoracic stomach -Supposed to have flex sigmoidoscopy today canceled due to hypokalemia 05/16 EUS with biopsies cancer hopefully happen on Thursday, stop full dose Lovenox, started on heparin drip 05/17 No active issue, no note from GI today, hopefully endoscopic ultrasound biopsy on Thursday (2) Pancreatic mass: Plan: Finesse above (3) Superior mesenteric artery stenosis: Plan: Hypodense infiltrative mass, measuring approximately 3 x 2.8 cm, likely arising from the uncinate process. 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, despite the the patient has been on apixaban, consulted with oncology, started on heparin drip, I discussed with oncology who is on the patient did thrombosis could be secondary to stenosis due to pancreatic mass (4) Ischemic colitis: Plan: Evidence of ischemic colitis on colonoscopy performed on 05/15 Patient discharged on Cipro and Flagyl intravenously and was switched to oral Patient initially started on Zosyn upon admission to the hospital Patient had leukocytosis of 26,000 most likely secondary to ischemic colitis that is improving Proceed with adequate hydration Advance diet to heart healthy diet (5) Hypokalemia: Plan: Severe hypokalemia with potassium 2.1 on 05/14 etiology unclear, patient is taking calcium channel melquiades which can cause hypokalemia otherwise there is no other etiology for her hypokalemia Patient received multiple rounds of KCl Patient started on K-Dur 40 mg twice daily Patient started on potassium sparing agent, spironolactone 100 mg daily Patient started on lisinopril 40 mg daily Increase the dose of spironolactone 200 mg daily as she is mildly hypokalemic, BMP tomorrow (6) Hypertension: Plan: Uncontrolled hypertension, BP meds has been adjusted, monitor for now - (7) UTI (urinary tract infection): Plan: The patient has active urine sediment, the culture is not conclusive due to contamination Follow-up UA looks clear (8) Hiatal hernia: Plan: As above, large (9) Malignant melanoma of left lower leg: Plan: - 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 - Continues to follow with [facility]/onc. (10) Anemia: Plan: Hemoglobin hemoconcentrated on admission and today is at her baseline at 9.9 Had an IV iron infusion with her oncologist at [facility] several weeks ago Follow CBC, no evidence of blood loss at this time Could be related to ongoing chemotherapy with melanoma versus occult GI blood loss-perhaps Laith ulcers from large hiatal hernia? She cannot recall that she has ever had a colonoscopy EGD/EUS if GI recommended (11) Elevated troponin: Plan: Troponin checked on 05/10 due to epigastric pain and nausea/vomiting and found to be elevated at 237 Repeat up slightly to 278 Most likely myocardial demand ischemia secondary to GI issues and abdominal pain with nausea/vomiting, colitis as above ECG without ischemic changes Check echocardiogram for wall motion abnormalities Continue to trend serial troponin until peaks No known underlying CAD Remains on aspirin and statin (12) Glaucoma: Plan: Continue home eyedrops (13) Paroxysmal atrial fibrillation: Plan: - Remains in NSR on examination and by EKG on admission. -Continue metoprolol and diltiazem -Hold home Eliquis now and start therapeutic Lovenox 40 Mg SQ twice daily in preparation for possible surgical procedure 05/16 Now on Heparin drip (14) Transient cerebral ischemia: Plan: Continue home aspirin, statin History of TIA (15) Hyperlipidemia: Plan: - Continue statin. (16) GERD (gastroesophageal reflux disease): Plan: - Continue PPI. Plan DVT prophylaxis-therapeutic Lovenox Disposition-continued stay on med/surg. DNR/DNI Discussed her care at the bedside with her and son later in the day. Admission and Anticipated Discharge Date Admission Date: May 09, 2022 Subjective Tolerated to full liquid diet, advance to heart healthy diet, since she is mildly hypokalemic, increase the dose of spironolactone 200 mg daily blood pressure still in the high side Results & Data Results & Data ([facility]) Vital Signs (Past 12 Hours) Vital Signs Temp Pulse Resp BP Pulse Ox O2 Del Method 05/17/22 16:30 36.4 C L 70 18 163/81 H 95 Room Air 05/17/22 07:44 36.8 C 85 16 171/94 H 96 Room Air PG Care Time/CCT Total # of Minutes Spent Total Time Spent with Patient: Total time spent is greater than 50% in coordination of care (as documented) at patient's floor/unit and/or counseling patient: Coding Level of Care Code 30144 Subseq Hosp Care Lvl 3 Diagnoses Abdominal pain R10.9 Pancreatic mass K86.89 Superior mesenteric artery stenosis K55.1 Ischemic colitis K55.9 Hypokalemia E87.6 Hypertension I10 UTI (urinary tract infection) N39.0 Hiatal hernia K44.9 Malignant melanoma of left lower leg C43.72 Anemia D64.9 Elevated troponin R77.8 Glaucoma H40.9 Paroxysmal atrial fibrillation I48.0 Transient cerebral ischemia G45.9 Hyperlipidemia E78.5 GERD (gastroesophageal reflux disease) K21.9
[2022-05-17] MEDS: ATORVASTATIN 10 MG TAB PO SCH (20:34)
[2022-05-17] MEDS: NON-FORMULARY PATIENT'S OWN MED OP SCH (20:34)
[2022-05-17] MEDS: IRON SUCROSE 300 MG in SODIUM CHLORIDE 0.9% 250 ML IV SCH (21:01)
[2022-05-17] MEDS: HEPARIN SODIUM/DEXTROSE 25,000 UNITS/500 ML BAG IV SCH (23:04)
[2022-05-18 07:05] LABS: Basophils # (auto) 0.02 K/uL (0-0.2); Basophils % (auto) 0.3 %; Eosinophils # (auto) 0.07 K/uL (0-0.50); Hematocrit (blood only) 26.7 % (34.1-44.9); Hemoglobin 8.5 g/dl (12.0-16.0); Immature Granulocytes # (auto) 0.07 K/uL (0.00-0.02); Lymphocytes # (auto) 1.26 K/uL (1.2-3.4); Lymphocytes % (auto) 18.3 %; Mean Corpuscular Hemoglobin 24.9 pg (25.0-34.0); Mean Corpuscular Hgb Conc 31.8 g/dL (32.0-36.0); Mean Corpuscular Volume 78.1 fL (80.0-100.0); Mean Platelet Volume 9.4 fL (9.4-12.3); Monocytes # (auto) 0.51 K/uL (0.24-0.82); Monocytes % (auto) 7.4 %; Neutrophils # (auto) 4.94 K/uL (1.4-6.5); Platelet Count 328 K/uL (130-400); RDW Coefficient of Variation 20.5 % (11.5-14.5); RDW Standard Deviation 56.4 fL (36.4-46.3); Red Blood Count 3.42 M/uL (3.93-5.22); White Blood Count 6.87 K/ul (4.8-10.8)
[2022-05-18 07:30] LABS: Anisocytosis Present
[2022-05-18 07:33] LABS: BUN Creatinine Ratio 12.5 (10-20); Calcium 7.7 mg/dl (8.5-10.1); Est GFR (African American) 99.2 ml/min; Est GFR (Non-African American) 85.6 ml/min; Potassium 3.3 mmol/L (3.5-5.1)
[2022-05-18 07:59] LABS: Partial Thromboplastin Ratio 3.4
[2022-05-18 09:01] LABS: Partial Thromboplastin Time 92.4 Seconds (21.0-31.0)
[2022-05-18] MEDS: LACTATED RINGER'S 1,000 ML IV SCH ×2 (09:18→19:55)
[2022-05-18] MEDS: BIMATOPROST 0.01% OP SOLN 2.5 ML BTL OP SCH (09:19)
[2022-05-18] MEDS: POTASSIUM CHLORIDE CRTAB 20 MEQ TABCR PO SCH ×2 (09:20→21:39)
[2022-05-18] MEDS: CIPROFLOXACIN 500 MG TAB PO SCH ×2 (09:20→21:40)
[2022-05-18] MEDS: dilTIAZem HCL 180 MG CAPCR PO SCH (09:20)
[2022-05-18] MEDS: PANTOprazole 40 MG TAB PO SCH ×2 (09:20→21:39)
[2022-05-18] MEDS: SPIRONOLACTONE 100 MG TAB PO SCH (09:21)
[2022-05-18] MEDS: DORZOLAMIDE/TIMOLOL 22.3/6.8MG/ML 10 ML BTL OP SCH ×2 (09:21→21:41)
[2022-05-18] MEDS: METOPROLOL TARTRATE 25 MG TAB PO SCH ×2 (09:22→21:40)
[2022-05-18] MEDS: FLUTICASONE/VILANTEROL 100/25MCG 14 PUFFS/INHALER INH SCH (09:22)
[2022-05-18] MEDS: lisinopril 40 MG TAB PO SCH (09:22)
[2022-05-18] MEDS: metroNIDAZOLE 500 MG TAB PO SCH ×3 (09:23→21:40)
[2022-05-18] MEDS: ASPIRIN 81 MG ECTAB PO SCH (11:51)
[2022-05-18 17:29] LABS: Partial Thromboplastin Ratio 2.2
[2022-05-18 17:40] LABS: Partial Thromboplastin Time 61.4 Seconds (21.0-31.0)
[2022-05-18] MEDS: HEPARIN SODIUM/DEXTROSE 25,000 UNITS/500 ML BAG IV SCH (17:46)
--- NOTE | 2022-05-18 17:59 | Hospitalist Progress Note ---
Date of Service May 18, 2022 Assessment & Plan (1) Abdominal pain: Plan: Patient presents with 27 lb unintentional weight loss over past 6 months while undergoing chemotherapy for her melanoma, but most of the weight loss came in the last few weeks. Having epigastric abdominal pain off and on for many months, but presented with 1 week of significantly worsening abdominal pain/bloating, nausea, vomiting, and constipation. On admission, with WBC 26, lactate elevated at 3.5, procalcitonin elevated at 12 She IS afebrile LFTs and lipase are normal CT A/P showed: * Hypodense infiltrative mass, measuring approximately 3 x 2.8 cm, likely arising from the uncinate process. 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 This is consistent with a neoplasm and pancreatic adenocarcinoma is a primary consideration. An infiltrative mesenteric mass could appear similar. GI consultation for consideration for EUS guided biopsy is recommended. * Wall thickening of the transverse colon with mild adjacent stranding. This suggests a nonspecific colitis. Venous ischemic colitis is within the differential given the SMA stenosis/occlusion. * Large hiatal hernia. Moderately distended partially visualized intrathoracic stomach with air-fluid level. Abdominal pain and nausea/vomiting could be secondary to very large hiatal hernia, plus the transverse colitis and also could be related to the pancreatic mass and SMA stenosis or occlusion Lactic acidosis now resolved with IV fluids. There is no portal venous gas or pneumatosis noted on CT Her abdominal pain and nausea is slightly improved since admission. Still having some waves of severe pain especially with movement. As per admitting discussion with GI, there is no role for vascular intervention for the near/complete occlusion of the SMV. Anatomically, occlusion of this could potentially cause the transverse colitis. The pancreatic mass certainly could be a pancreatic cancer. Alternatively, perhaps metastatic disease from her known metastatic melanoma? Leukocytosis improving Started IV Zosyn on admission -Cautiously advance diet to clear liquids as per GI -Low threshold to place NG tube if continues to vomit given large hiatal hernia- would decompress this -Add IV Tylenol as needed for mild to moderate pain and add low-dose IV Dilaudid as needed for moderate to severe pain -Continue IV fluid hydration with LR but lowered to 100 mL/h to avoid volume overload -Continue IV Zosyn for colitis -Needs EUS for biopsy of pancreatic mass which can potentially be done as an inpatient early next week when advanced endoscopist is available 05/11 Patient tolerated liquid diet, advance to full liquid Discussed with GI recommend surgery consult for large hiatal hernia and if the patient is a candidate for PEG tube Proceed with CT of abdomen with pancreas protocol 05/12 CT of abdomen with pancreas protocol confirmed pancreatic mass Patient is going for endoscopic ultrasound with biopsy tomorrow Pain management started on MS Contin 05/14 The patient has large multiple bowel movements Patient was supposed to go for EUS possibly on Thursday -Upper GI series performed on Thursday showed partial intrathoracic stomach -Supposed to have flex sigmoidoscopy today canceled due to hypokalemia 05/16 EUS with biopsies cancer hopefully happen on Thursday, stop full dose Lovenox, started on heparin drip 05/17 No active issue, no note from GI today, hopefully endoscopic ultrasound biopsy on Thursday Abdominal pain has significantly improved after the patient has multiple bowel movement (2) Pancreatic mass: Plan: Finesse above (3) Superior mesenteric artery stenosis: Plan: Hypodense infiltrative mass, measuring approximately 3 x 2.8 cm, likely arising from the uncinate process. 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, despite the the patient has been on apixaban, consulted with oncology, started on heparin drip, I discussed with oncology who is on the patient did thrombosis could be secondary to stenosis due to pancreatic mass (4) Ischemic colitis: Plan: Evidence of ischemic colitis on colonoscopy performed on 05/15 Patient started on Cipro and Flagyl intravenously and was switched to oral cipro /flagyl on 05/17 Patient initially started on Zosyn upon admission to the hospital Patient had leukocytosis of 26,000 most likely secondary to ischemic colitis that is improving Proceed with adequate hydration Advance diet to heart healthy diet -Patient complains of having multiple loose bowel movements, however the nurse only reported once, we discussed it with GI tomorrow (5) Hypokalemia: Plan: Severe hypokalemia with potassium 2.1 on 05/14 etiology unclear, patient is taking calcium channel melquiades which can cause hypokalemia otherwise there is no other etiology for her hypokalemia Patient received multiple rounds of KCl Patient started on K-Dur 40 mg twice daily Patient started on potassium sparing agent, spironolactone 100 mg daily Patient started on lisinopril 40 mg daily Increase the dose of spironolactone 200 mg daily as she is mildly hypokalemic, BMP tomorrow (6) Hypertension: Plan: Uncontrolled hypertension, BP meds has been adjusted, monitor for now -The dose of Cardizem increased to 240 05/18 - (7) UTI (urinary tract infection): Plan: The patient has active urine sediment, the culture is not conclusive due to contamination Follow-up UA looks clear (8) Hiatal hernia: Plan: As above, large (9) Malignant melanoma of left lower leg: Plan: - 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 - Continues to follow with [facility]/on[facility]. (10) Anemia: Plan: Receive IV infusion during this admission Had an IV iron infusion with her oncologist at [facility] several weeks ago Follow CBC, no evidence of blood loss at this time Could be related to ongoing chemotherapy with melanoma versus occult GI blood loss-perhaps Laith ulcers from large hiatal hernia? EGD/EUS on Thursday -Had colonoscopy years admission did not show any other source of bleeding (11) Elevated troponin: Plan: Troponin checked on 05/10 due to epigastric pain and nausea/vomiting and found to be elevated at 237 Repeat up slightly to 278 Most likely myocardial demand ischemia secondary to GI issues and abdominal pain with nausea/vomiting, colitis as above ECG without ischemic changes Check echocardiogram for wall motion abnormalities Continue to trend serial troponin until peaks No known underlying CAD Remains on aspirin and statin (12) Glaucoma: Plan: Continue home eyedrops (13) Paroxysmal atrial fibrillation: Plan: - Remains in NSR on examination and by EKG on admission. -Continue metoprolol and diltiazem -Hold home Eliquis now and start therapeutic Lovenox 40 Mg SQ twice daily in preparation for possible surgical procedure 05/16 Now on Heparin drip (14) Transient cerebral ischemia: Plan: Continue home aspirin, statin History of TIA (15) Hyperlipidemia: Plan: - Continue statin. (16) GERD (gastroesophageal reflux disease): Plan: - Continue PPI. Plan DVT prophylaxis-therapeutic Lovenox Disposition-continued stay on med/surg. DNR/DNI Discussed her care at the bedside with her and son later in the day. Admission and Anticipated Discharge Date Admission Date: May 09, 2022 Subjective Tolerated to full liquid diet, advance to heart healthy diet, since she is mildly hypokalemic, increase the dose of spironolactone 200 mg daily blood pressure still in the high side, complaining of having multiple loose bowel movement, however currently nurse patient only had 1 loose bowel movement Results & Data Results & Data ([facility]) Vital Signs (Past 12 Hours) Vital Signs Temp Pulse Resp BP Pulse Ox O2 Del Method 05/18/22 15:05 36.6 C 80 16 156/85 H 98 Room Air 05/18/22 07:25 36.6 C 81 18 158/88 H 95 Room Air PG Care Time/CCT Total # of Minutes Spent Total Time Spent with Patient: Total time spent is greater than 50% in coordination of care (as documented) at patient's floor/unit and/or counseling patient: Coding Level of Care Code 51372 Subseq Hosp Care Lvl 3 Diagnoses Abdominal pain R10.9 Pancreatic mass K86.89 Superior mesenteric artery stenosis K55.1 Ischemic colitis K55.9 Hypokalemia E87.6 Hypertension I10 UTI (urinary tract infection) N39.0 Hiatal hernia K44.9 Malignant melanoma of left lower leg C43.72 Anemia D64.9 Elevated troponin R77.8 Glaucoma H40.9 Paroxysmal atrial fibrillation I48.0 Transient cerebral ischemia G45.9 Hyperlipidemia E78.5 GERD (gastroesophageal reflux disease) K21.9
[2022-05-18] MEDS: ATORVASTATIN 10 MG TAB PO SCH (21:39)
[2022-05-18] MEDS: NEVANAC OPR SCH (21:40)
[2022-05-19] MEDS: HEPARIN SODIUM/DEXTROSE 25,000 UNITS/500 ML BAG IV SCH (04:18)
[2022-05-19] MEDS: LACTATED RINGER'S 1,000 ML IV SCH ×2 (04:19→14:53)
[2022-05-19] MEDS: lisinopril 40 MG TAB PO SCH (08:32)
[2022-05-19] MEDS: BIMATOPROST 0.01% OP SOLN 2.5 ML BTL OP SCH (08:32)
[2022-05-19] MEDS: ASPIRIN 81 MG ECTAB PO SCH (08:32)
[2022-05-19] MEDS: CIPROFLOXACIN 500 MG TAB PO SCH ×2 (08:33→20:11)
[2022-05-19] MEDS: DORZOLAMIDE/TIMOLOL 22.3/6.8MG/ML 10 ML BTL OP SCH ×2 (08:33→20:13)
[2022-05-19] MEDS: dilTIAZem HCL 240 MG CAPCR PO SCH (08:33)
[2022-05-19] MEDS: METOPROLOL TARTRATE 25 MG TAB PO SCH ×2 (08:34→20:13)
[2022-05-19] MEDS: FLUTICASONE/VILANTEROL 100/25MCG 14 PUFFS/INHALER INH SCH (08:34)
[2022-05-19] MEDS: metroNIDAZOLE 500 MG TAB PO SCH ×3 (08:34→20:12)
[2022-05-19] MEDS: POTASSIUM CHLORIDE CRTAB 20 MEQ TABCR PO SCH ×2 (08:34→20:12)
[2022-05-19] MEDS: PANTOprazole 40 MG TAB PO SCH ×2 (08:35→20:11)
[2022-05-19] MEDS: SPIRONOLACTONE 100 MG TAB PO SCH (08:35)
[2022-05-19 08:45] LABS: Hematocrit (blood only) 30.5 % (34.1-44.9); Hemoglobin 9.5 g/dl (12.0-16.0); Mean Corpuscular Hemoglobin 24.8 pg (25.0-34.0); Mean Corpuscular Hgb Conc 31.1 g/dL (32.0-36.0); Mean Corpuscular Volume 79.6 fL (80.0-100.0); Mean Platelet Volume 9.4 fL (9.4-12.3); Platelet Count 361 K/uL (130-400); RDW Coefficient of Variation 20.9 % (11.5-14.5); RDW Standard Deviation 58.3 fL (36.4-46.3); Red Blood Count 3.83 M/uL (3.93-5.22); White Blood Count 6.75 K/ul (4.8-10.8)
[2022-05-19 09:07] LABS: Creatinine Clr Calc Pharmacy 44.6 ml/min; Est GFR (Non-African American) 81.9 ml/min
[2022-05-19 09:40] LABS: Partial Thromboplastin Time 56.1 Seconds (21.0-31.0)
--- NOTE | 2022-05-19 18:24 | Hospitalist Progress Note ---
Date of Service May 19, 2022 Assessment & Plan (1) Abdominal pain: Plan: Attending: Dr. Bonilla Impression: Patient admitted 05/09/[address] abdomen pelvis showed no obstruction but probable ischemic bowel. Surgery and gastroenterology both consulted. Nonsurgical at this time. Patient is scheduled for EUS with gastroenterology tomorrow. Stool was negative for C. difficile. No hematochezia or melena. Afebrile Patient presents with 27 lb unintentional weight loss over past 6 months while undergoing chemotherapy for her melanoma, but most of the weight loss came in the last few weeks. Having epigastric abdominal pain off and on for many months, but presented with 1 week of significantly worsening abdominal pain/bloating, nausea, vomiting, and constipation. On admission, with WBC 26, lactate elevated at 3.5, procalcitonin elevated at 12 She IS afebrile LFTs and lipase are normal CT A/P showed: * Hypodense infiltrative mass, measuring approximately 3 x 2.8 cm, likely arising from the uncinate process. 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 This is consistent with a neoplasm and pancreatic adenocarcinoma is a primary consideration. An infiltrative mesenteric mass could appear similar. GI consultation for consideration for EUS guided biopsy is recommended. * Wall thickening of the transverse colon with mild adjacent stranding. This suggests a nonspecific colitis. Venous ischemic colitis is within the differential given the SMA stenosis/occlusion. * Large hiatal hernia. Moderately distended partially visualized intrathoracic stomach with air-fluid level. Abdominal pain and nausea/vomiting could be secondary to very large hiatal hernia, plus the transverse colitis and also could be related to the pancreatic mass and SMA stenosis or occlusion Lactic acidosis now resolved with IV fluids. There is no portal venous gas or pneumatosis noted on CT Her abdominal pain and nausea is slightly improved since admission. Still having some waves of severe pain especially with movement. As per admitting discussion with GI, there is no role for vascular intervention for the near/complete occlusion of the SMV. Anatomically, occlusion of this could potentially cause the transverse colitis. The pancreatic mass certainly could be a pancreatic cancer. Alternatively, perhaps metastatic disease from her known metastatic melanoma? Leukocytosis improving Started IV Zosyn on admission -Cautiously advance diet to clear liquids as per GI -Low threshold to place NG tube . For decompression if continues to vomit given large hiatal hernia -Add IV Tylenol as needed for mild to moderate pain and add low-dose IV Dilaudid as needed for moderate to severe pain -Continue IV fluid hydration with LR but lowered to 100 mL/h to avoid volume overload -Continue IV Zosyn for colitis -EUS for biopsy of pancreatic mass scheduled for tomorrow. Patient is n.p.o. after midnight tonight 05/11 Patient tolerated liquid diet, advanced to full liquid Discussed with GI recommend surgery consult for large hiatal hernia and if the patient is a candidate for PEG tube Proceed with CT of abdomen with pancreas protocol 05/12 CT of abdomen with pancreas protocol confirmed pancreatic mass Patient is going for endoscopic ultrasound with biopsy tomorrow Pain management started on MS Contin 05/14 The patient has large multiple bowel movements Patient was supposed to go for EUS possibly on Thursday -Upper GI series performed on Thursday showed partial intrathoracic stomach -Supposed to have flex sigmoidoscopy today canceled due to hypokalemia 05/16 EUS with biopsies cancer hopefully happen on Thursday, stop full dose Lovenox, started on heparin drip 05/17 No active issue, no note from GI today, hopefully endoscopic ultrasound biopsy on Thursday Abdominal pain has significantly improved after the patient has multiple bowel movement 05/19/2022 Patient continues with multiple bouts of diarrhea throughout the day. If this continues, will discuss Imodium with GI team since this appears to be ischemic (2) Pancreatic mass: Plan: plan as above (3) Superior mesenteric artery stenosis: Plan: Hypodense infiltrative mass, measuring approximately 3 x 2.8 cm, likely arising from the uncinate process. 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, despite the the patient has been on apixaban, consulted with oncology, started on heparin drip, I discussed with oncology who is on the patient did thrombosis could be secondary to stenosis due to pancreatic mass (4) Ischemic colitis: Plan: Evidence of ischemic colitis on colonoscopy performed on 05/15 Patient started on Cipro and Flagyl intravenously and was switched to oral cipr o /flagyl on 05/17 Patient initially started on Zosyn upon admission to the hospital Patient had leukocytosis of 26,000 most likely secondary to ischemic colitis that is improving Proceed with adequate hydration Advance diet to heart healthy diet -Patient complains of having multiple loose bowel movements. Will discussed it with GI tomorrow (5) Hypokalemia: Plan: Severe hypokalemia with potassium 2.1 on 05/14 etiology unclear, patient is taking calcium channel melquiades which can cause hypokalemia otherwise there is no other etiology for her hypokalemia Patient received multiple rounds of KCl Patient started on K-Dur 40 mg twice daily Patient started on potassium sparing agent, spironolactone 100 mg daily Patient started on lisinopril 40 mg daily Increase the dose of spironolactone 200 mg daily as she is mildly hypokalemic Potassium is now corrected to 4.0 Magnesium 1.6. We will replete that and check labs tomorrow (6) Hypertension: Plan: Uncontrolled hypertension, BP meds has been adjusted, monitor for now -The dose of Cardizem increased to 240 05/18 Systolic blood pressure is now in the 140s. Continue to monitor per protocol (7) UTI (urinary tract infection): Plan: The patient has active urine sediment, the culture is not conclusive due to contamination Follow-up UA looks clear Patient continues on Zosyn for ischemic bowel. 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 - Continues to follow with [facility]/onc. (10) Anemia: Plan: Received IV infusion during this admission Had an IV iron infusion with her oncologist at [facility] several weeks ago Follow CBC, no evidence of blood loss at this time Could be related to ongoing chemotherapy with melanoma versus occult GI blood loss-perhaps Laith ulcers from large hiatal hernia? EGD/EUS on Thursday Had colonoscopy years admission did not show any other source of bleeding No melena or hematochezia (11) Elevated troponin: Plan: Troponin checked on 05/10 due to epigastric pain and nausea/vomiting and found to be elevated at 237 Repeat up slightly to 278 Most likely myocardial demand ischemia secondary to GI issues and abdominal pain with nausea/vomiting, colitis as above ECG without ischemic changes Continue now trending downward. Last troponin 05/10/2022. No chest pain or tightness. No known underlying CAD Remains on aspirin and statin Continues on heparin drip for paroxysmal atrial fibrillation since DOAC needed to be held (12) Glaucoma: Plan: Continue home eyedrops (13) Paroxysmal atrial fibrillation: Plan: - Remains in NSR on examination and by EKG on admission. -Continue metoprolol and diltiazem -Hold home Eliquis now in preparation for possible surgical procedure Now on Heparin drip as of 05/16/2022 (14) Transient cerebral ischemia: Plan: Continue home aspirin, statin History of TIA (15) Hyperlipidemia: Plan: - Continue statin. (16) GERD (gastroesophageal reflux disease): Plan: - Continue PPI. Plan DVT prophylaxis- Heparin gtt Disposition-continued stay on med/surg pending further GI workup DNR/DNI Discussed her care at the bedside with her and son. Admission and Anticipated Discharge Date Admission Date: May 09, 2022 Supervising Physician Co-Signing Physician Notes chart reviewed and case d/w E Andra PAC, as above Subjective Attending: Dr. Bonilla Patient seen and examined at bedside. and son were present. Patient states that her chief complaint continues to be multiple bouts of diarrhea. She has tested negative for C. difficile. She has had electrolyte imbalance with hypokalemia and hypomagnesemia. No melena or hematochezia. No hematemesis. These are being corrected. Patient is tolerating food with no nausea or vomiting. Minimal abdominal pain. No pain with deep palpation. No shortness of breath. No chest pain or tightness. Patient does have left flank pain which is ongoing. No fever, chills, sweats, rigors. Review of Systems Review of Systems: A total of 10 systems was reviewed and is negative other than as listed in the HPI Physical Exam Physical Exam: GENERAL : No acute distress EYES: No icterus, gaze conjugate NOSE: No evidence of epistaxis MOUTH: No lesions or candidiasis NECK: Supple LUNGS: CTA B/L, no wheezes, rales or rhonchi HEART: Regular, rate controlled ABDOMEN: Soft, NT, ND, BS Present. Hyperactive bowel sounds. No rebound tenderness or guarding. EXTREMITIES: No LE edema, pedal pulses intact NEURO: A&OX3 Results & Data Results & Data ([facility]) Vital Signs (Past 12 Hours) Vital Signs Temp Pulse Pulse Resp BP Pulse Ox O2 Del Method 05/19/22 16:00 36.6 C 68 18 118/70 96 Room Air 05/19/22 07:40 Room Air 05/19/22 11:21 82 158/93 H 96 Room Air 05/19/22 08:07 36.6 C 73 18 174/91 H 98 Room Air Critical Care Results & Data Vital Signs (Past 12 Hours) Vital Signs Temp Pulse Pulse Resp BP Pulse Ox O2 Del Method 05/19/22 16:00 36.6 C 68 18 118/70 96 Room Air 05/19/22 07:40 Room Air 05/19/22 11:21 82 158/93 H 96 Room Air 05/19/22 08:07 36.6 C 73 18 174/91 H 98 Room Air Lab & Micro Results (Past 24 Hours) RBC 4.19 M/uL (3.93-5.22) 05/21/22 WBC 8.16 K/ul (4.8-10.8) 05/21/22 Hgb 10.4 g/dl (12.0-16.0) L 05/21/22 Hct 33.9 % (34.1-44.9) L 05/21/22 MCV 80.9 fL (80.0-100.0) 05/21/22 MCH 24.8 pg (25.0-34.0) L 05/21/22 MCHC 30.7 g/dL (32.0-36.0) L 05/21/22 RDW Standard Deviation 59.5 fL (36.4-46.3) H 05/21/22 RDW Coefficient of Variation 21.8 % (11.5-14.5) H 05/21/22 Plt Count 398 K/uL (130-400) 05/21/22 MPV 9.0 fL (9.4-12.3) L 05/21/22 Na 137 mmol/L (136-145) 05/21/22 K 4.3 mmol/L (3.5-5.1) 05/21/22 Cl 104 mmol/L (98-107) 05/21/22 CO2 25 mmol/L (21-32) 05/21/22 Anion Gap 8 (3-11) 05/21/22 BUN 12 mg/dl (6-23) 05/21/22 Creatinine 0.72 mg/dl (0.6-1.2) 05/21/22 Estimated GFR ( Amer) 89.1 ml/min 05/21/22 Estimated GFR (Non-Af Amer) 76.9 ml/min 05/21/22 BUN/Creatinine Ratio 16.7 (10-20) 05/21/22 Glu 97 mg/dl (70-99(Fasting)) 05/21/22 Ca 8.8 mg/dl (8.5-10.1) 05/21/22 Mg 2.0 mg/dl (1.7-2.4) 05/21/22 04:26 Calcium Level 8.8 mg/dl (8.5-10.1) 05/21/22 04:26 I & O Totals 24 Hours 05/18/22 05/19/22 05/20/22 06:59 06:59 06:59 Intake Total 2737.033 / 2737.033 3558.817 / 3558.817 1067 / 1067 Output Total 2 / 2 Balance 2737.033 / 2737.033 3556.817 / 3556.817 1067 / 1067 Cumulative 05/09/22 12:10 thru 05/19/22 14:19 Intake Total 75229.683 Output Total 458 Balance 46290.683 RT Ventilator Mngmt (Last Documented) Ventilator Ordered Settings Respiratory Rate 18 05/19/22 16:00 Ventilator - PT Measurements Respiratory Rate 18 PG Care Time/CCT Total # of Minutes Spent Total Time Spent with Patient: Total time spent is greater than 50% in coordination of care (as documented) at patient's floor/unit and/or counseling patient: Coding Level of Care Code 88222 SUB INP/OBS CARE 2/35MIN Diagnoses Abdominal pain R10.9 Pancreatic mass K86.89 Superior mesenteric artery stenosis K55.1 Ischemic colitis K55.9 Hypokalemia E87.6 Hypertension I10 UTI (urinary tract infection) N39.0 Hiatal hernia K44.9 Malignant melanoma of left lower leg C43.72 Anemia D64.9 Elevated troponin R77.8 Glaucoma H40.9 Paroxysmal atrial fibrillation I48.0 Transient cerebral ischemia G45.9 Hyperlipidemia E78.5 GERD (gastroesophageal reflux disease) K21.9
[2022-05-19 19:35] LABS: BUN Creatinine Ratio 14.1 (10-20); Calcium 8.5 mg/dl (8.5-10.1); Creatinine Clr Calc Pharmacy 40.2 ml/min; Est GFR (African American) 90.7 ml/min; Est GFR (Non-African American) 78.2 ml/min; Magnesium 1.6 mg/dl (1.7-2.4)
[2022-05-19] MEDS: LIDOCAINE 5% 1 PATCH TD SCH (20:02)
[2022-05-19] MEDS: NEVANAC OPR SCH (20:07)
[2022-05-19] MEDS: ATORVASTATIN 10 MG TAB PO SCH (20:11)
[2022-05-20] MEDS: LACTATED RINGER'S 1,000 ML IV SCH ×3 (00:10→20:30)
[2022-05-20] MEDS: MAGNESIUM SULFATE / D5W 1 GM/100 ML BAG IV SCH ×2 (00:11→02:15)
[2022-05-20] MEDS: metroNIDAZOLE 500 MG TAB PO SCH ×2 (08:46→14:13)
[2022-05-20] MEDS: lisinopril 40 MG TAB PO SCH (08:46)
[2022-05-20] MEDS: ASPIRIN 81 MG ECTAB PO SCH (08:46)
[2022-05-20] MEDS: SPIRONOLACTONE 100 MG TAB PO SCH (08:47)
[2022-05-20] MEDS: METOPROLOL TARTRATE 25 MG TAB PO SCH ×2 (08:47→20:33)
[2022-05-20] MEDS: LIDOCAINE 5% 1 PATCH TD SCH (08:47)
[2022-05-20] MEDS: CIPROFLOXACIN 500 MG TAB PO SCH (08:47)
[2022-05-20] MEDS: POTASSIUM CHLORIDE CRTAB 20 MEQ TABCR PO SCH ×2 (08:47→20:33)
[2022-05-20] MEDS: PANTOprazole 40 MG TAB PO SCH ×2 (08:47→20:33)
[2022-05-20] MEDS: dilTIAZem HCL 240 MG CAPCR PO SCH (08:47)
[2022-05-20] MEDS: FLUTICASONE/VILANTEROL 100/25MCG 14 PUFFS/INHALER INH SCH (08:48)
[2022-05-20] MEDS: DORZOLAMIDE/TIMOLOL 22.3/6.8MG/ML 10 ML BTL OP SCH ×2 (08:48→20:32)
[2022-05-20 09:01] LABS: Basophils # (auto) 0.02 K/uL (0-0.2); Basophils % (auto) 0.3 %; Eosinophils # (auto) 0.05 K/uL (0-0.50); Eosinophils % (auto) 0.8 %; Hematocrit (blood only) 29.4 % (34.1-44.9); Hemoglobin 9.2 g/dl (12.0-16.0); Immature Granulocytes # (auto) 0.05 K/uL (0.00-0.02); Immature Granulocytes % (auto) 0.8 %; Lymphocytes # (auto) 1.31 K/uL (1.2-3.4); Lymphocytes % (auto) 21.4 %; Mean Corpuscular Hemoglobin 24.7 pg (25.0-34.0); Mean Corpuscular Hgb Conc 31.3 g/dL (32.0-36.0); Mean Platelet Volume 9.2 fL (9.4-12.3); Monocytes # (auto) 0.44 K/uL (0.24-0.82); Monocytes % (auto) 7.2 %; Neutrophils # (auto) 4.26 K/uL (1.4-6.5); Neutrophils % (auto) 69.5 %; Platelet Count 368 K/uL (130-400); RDW Coefficient of Variation 21.1 % (11.5-14.5); RDW Standard Deviation 56.5 fL (36.4-46.3); Red Blood Count 3.72 M/uL (3.93-5.22); White Blood Count 6.13 K/ul (4.8-10.8)
[2022-05-20 09:14] LABS: Partial Thromboplastin Ratio 1.2; Partial Thromboplastin Time 32.9 Seconds (21.0-31.0)
[2022-05-20] MEDS: BIMATOPROST 0.01% OP SOLN 2.5 ML BTL OP SCH (09:24)
[2022-05-20 09:30] LABS: BUN Creatinine Ratio 14.8 (10-20); Calcium 8.1 mg/dl (8.5-10.1); Creatinine Clr Calc Pharmacy 46.8 ml/min; Est GFR (African American) 96.5 ml/min; Est GFR (Non-African American) 83.2 ml/min; Magnesium 2.2 mg/dl (1.7-2.4); Potassium 4.1 mmol/L (3.5-5.1)
[2022-05-20 09:32] LABS: RBC Morphology Unremarkable
--- NOTE | 2022-05-20 10:08 | Gastroenterology Progress Note ---
Date of Service May 20, 2022 Assessment & Plan (1) Hiatal hernia: Plan: UGI series completed 05/13 - partially intrathoracic stomach, no signs of GOO - PPI PO BID (2) Pancreatic mass: Plan: 32 x 26mm uncinate pancreas mass, may be contributing to SMV stenosis - At this point, it does not appear that we will be able to provide IP EUS this week. The physician who was scheduled to provide the procedure today is unable to provide the service. This was discussed w the pt who tells me that she is patient and that she can wait. - May be able to arrange OP EUS in [place] this week, or we can arrange an EUS here at [facility] next week. (3) Colitis: Plan: Cipro/Flagyl may be contributing to diarrhea - may discontinue at this point. May use Imodium cautiously. Plan We may be able to arrange OP EUS at [place] as early as tomorrow but need to speak w family about their comfort taking the pt home, in light of general deconditioning and weakness. As above. For now, cont to hold anticoagulants. May restart heparin. Will restart her diet. Admission and Anticipated Discharge Date Admission Date: May 09, 2022 Supervising Physician Co-Signing Physician Notes Attg add: I interviewed and examined pt, reviewed chart and labs. pt without abd pain, rain PO. Abd is soft and non distended. Labs reviewed. Panc mass -- Will arrange EUS as outpt, likely next week to allow pt time to be discharged. Ischemic colitis -- Clinically much improved. Agree with diet, ok to d/c abx. Diarrhea -- Abx assoc, osmotic, malnutrition related -- PRN Immodium at low dose. Subjective 86, female, no events over the weekend. Generally improving, able to eat small amts - a little more all the time. Pt prefers not to get a PEG. Hemodynamically stable. Abd distention is resolved. Now passing several liquid BMs/day. Stool for C-diff (-). Flex sig last week w isch colitis. Covered w Cipro/Flagyl. Plan was for EUS today for pancreas mass - but due to personnel issues the procedure needs to be cancelled. I explained this to the pt who is understanding. Review of Systems Review of Systems: ROS: Gen: +weakness/weight loss Eyes: No eye redness, or pain, no recent vision changes Resp: No SOB, no cough Cardio: No palpitations/irregular beats, no chest pain GI: As per HPI, otherwise (-) : Denies pain on urination Skin: pale, no jaundice, itching or new rashes Ext: no edema, no focal weakness Physical Exam Constitutional: well developed, + ill appearing and + frail appearing; no acute distress (uncomfortable) Eyes: PERRL, conjunctivae normal, anicteric sclerae ENMT: external ear and nose normal, oropharynx normal Neck: trachea midline, no thyromegaly Respiratory: normal respiratory effort, lungs clear to auscultation Cardiovascular: RRR, no murmur, no edema Gastrointestinal (Abdomen): normal bowel sounds, soft, nontender, no hepatosplenomegaly Skin: normal turgor; no rashes and no jaundice Neurologic: PERRL, EOMI, accommodation nl, no face palsy, no dysarthria Psychiatric: A+Ox3, euthymic affect Lymphatic: no cervical or axillary lymphadenopathy Results & Data ([facility]) Vital Signs (Past 12 Hours) Vital Signs Temp Pulse Resp BP Pulse Ox O2 Del Method 05/20/22 07:30 36.7 C 75 16 147/85 H 97 Room Air Laboratory Results WBC 6.7, Hb 9.5, Hct 30.5, Plts 361, Na 136, K 4.0, Cl 105, CO2 24, BUN 10, Cr 0.71, glucose 1.0 Diagnostic Findings KUB 05/14/22 Nonobstructive bowel gas pattern. There are mildly gas-distended loops of small bowel without judy obstruction. CT pancreatic protocol 05/12/22: Redemonstration of a poorly defined uncinate process mass. If not previously characterized, tissue sampling is recommended. 2. There is narrowing of the superior mesenteric vein as it traverses the area of the mass. No definite superior mesenteric vein thrombus, however the vein is narrowed by the uncinate process mass. 3. Thickening of the sigmoid flexure of the colon is nonspecific and may represent infectious/inflammatory colitis. 4. Large hiatal hernia which appears to be chronic. UGI series 05/13/22: 1. Large sliding type hiatal hernia with partially intrathoracic stomach. 2. No evidence of gastric outlet obstruction. Flex sig 12/30/22: circumferential ulceration of the transverse/left colon consistent with ischemic colitis. CTAP w IV 05/09/22: 1. Hypodense infiltrative mass, measuring approximately 3 x 2.8 cm, likely arising from the uncinate process. 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 This is consistent with a neoplasm and pancreatic adenocarcinoma is a primary consideration. An infiltrative mesenteric mass could appear similar. GI consultation for consideration for EUS guided biopsy is recommended. 2. Wall thickening of the transverse colon with mild adjacent stranding. This suggests a nonspecific colitis. Venous ischemic colitis is within the differential given the SMV stenosis/occlusion. 3. Large hiatal hernia. Moderately distended partially visualized intrathoracic stomach with air-fluid level.
[2022-05-20] MEDS ORDERED: LOPERAMIDE HCL 2 MG CAP PO STA (10:27)
[2022-05-20 10:59] LABS: Partial Thromboplastin Ratio 1.2; Partial Thromboplastin Time 34.3 Seconds (21.0-31.0)
[2022-05-20 16:54] LABS: Partial Thromboplastin Ratio 1.5; Partial Thromboplastin Time 42.4 Seconds (21.0-31.0)
--- NOTE | 2022-05-20 18:00 | Hospitalist Progress Note ---
Date of Service May 20, 2022 Assessment & Plan (1) Abdominal pain: Plan: Attending: Dr. Bonilla Impression: Patient admitted 05/09/[address] abdomen pelvis showed no obstruction but probable ischemic bowel. Surgery and gastroenterology both consulted. Nonsurgical at this time. Patient was scheduled for EUS with gastroenterology today. However, this had to be cancelled and will be done outpatient next week. Stool was negative for C. difficile. No hematochezia or melena. Afebrile Patient presents with 27 lb unintentional weight loss over past 6 months while undergoing chemotherapy for her melanoma, but most of the weight loss came in the last few weeks. Having epigastric abdominal pain off and on for many months, but presented with 1 week of significantly worsening abdominal pain/bloating, nausea, vomiting, and constipation. On admission, with WBC 26, lactate elevated at 3.5, procalcitonin elevated at 12 She IS afebrile LFTs and lipase are normal CT A/P showed: * Hypodense infiltrative mass, measuring approximately 3 x 2.8 cm, likely arising from the uncinate process. 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 This is consistent with a neoplasm and pancreatic adenocarcinoma is a primary consideration. An infiltrative mesenteric mass could appear similar. GI consultation for consideration for EUS guided biopsy is recommended. * Wall thickening of the transverse colon with mild adjacent stranding. This suggests a nonspecific colitis. Venous ischemic colitis is within the differential given the SMA stenosis/occlusion. * Large hiatal hernia. Moderately distended partially visualized intrathoracic stomach with air-fluid level. Abdominal pain and nausea/vomiting could be secondary to very large hiatal hernia, plus the transverse colitis and also could be related to the pancreatic mass and SMA stenosis or occlusion Lactic acidosis now resolved with IV fluids. There is no portal venous gas or pneumatosis noted on CT Her abdominal pain and nausea is resolved since admission. As per admitting discussion with GI, there is no role for vascular intervention for the near/complete occlusion of the SMV. Anatomically, occlusion of this could potentially cause the transverse colitis. The pancreatic mass certainly could be a pancreatic cancer. Alternatively, perhaps metastatic disease from her known metastatic melanoma? Leukocytosis improving Started IV Zosyn on admission. Discussed with GI. Will discontinue antibiotics today. -Patient is tolerating diet. GI has been manageing -Continue IV fluid hydration with LR but lowered to 100 mL/h to avoid volume overload -EUS for biopsy of pancreatic mass to be completed as an outpatient. This is being coordinated by [facility] Continue pain management with [facility] Patient continues with multiple bouts of diarrhea throughout the day. Discussed with GI. They will start Imodium since this appears to be ischemic. Not appropriate for discharge as long as she is have copious diarrhea. (2) Pancreatic mass: Plan: plan as above (3) Superior mesenteric artery stenosis: Plan: Hypodense infiltrative mass, measuring approximately 3 x 2.8 cm, likely arising from the uncinate process. 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 If it can be done this week, will continue heparin gtt (4) Ischemic colitis: Plan: Evidence of ischemic colitis on colonoscopy performed on 05/15 Patient started on Cipro and Flagyl intravenously and was switched to oral cipro /flagyl on 05/17 Patient initially started on Zosyn upon admission to the hospital Patient had leukocytosis of 26,000 most likely secondary to ischemic colitis that is improving Proceed with adequate hydration Advance diet to heart healthy diet Imodium to be ordered by GI Continue to monitor labs (5) Hypokalemia: Plan: Severe hypokalemia with potassium 2.1 on 05/14 etiology unclear, patient is taking calcium channel melquiades which can cause hypokalemia otherwise there is no other etiology for her hypokalemia Patient received multiple rounds of KCl Patient started on K-Dur 40 mg twice daily Patient started on potassium sparing agent, spironolactone 100 mg daily Patient started on lisinopril 40 mg daily Increase the dose of spironolactone 200 mg daily as she is mildly hypokalemic Potassium is now corrected to 4.0 Magnesium corrected today. We will check labs tomorrow (6) Hypertension: Plan: Uncontrolled hypertension, BP meds has been adjusted, monitor for now -The dose of Cardizem increased to 240 05/18 Systolic blood pressure is now in the 140s. Continue to monitor per protocol (7) UTI (urinary tract infection): Plan: The patient has active urine sediment, the culture is not conclusive due to contamination Follow-up UA looks clear Patient has been on several days of Zosyn for ischemic bowel. 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 - Continues to follow with [facility]. (10) Anemia: Plan: Received IV infusion during this admission Had an IV iron infusion with her oncologist at [place] several weeks ago Follow CBC, no evidence of blood loss at this time Could be related to ongoing chemotherapy with melanoma versus occult GI blood loss-perhaps Laith ulcers from large hiatal hernia? EGD/EUS on Thursday Had colonoscopy years admission did not show any other source of bleeding No melena or hematochezia Repeat labs in the morning (11) Elevated troponin: Plan: Troponin checked on 05/10 due to epigastric pain and nausea/vomiting and found to be elevated at 237 Repeat up slightly to 278 Most likely myocardial demand ischemia secondary to GI issues and abdominal pain with nausea/vomiting, colitis as above ECG without ischemic changes Continue now trending downward. Last troponin 05/10/2022. No chest pain or tightness. No known underlying CAD Remains on aspirin and statin Continues on heparin drip for paroxysmal atrial fibrillation since DOAC needed to be held (12) Glaucoma: Plan: Continue home eyedrops (13) Paroxysmal atrial fibrillation: Plan: - Remains in NSR on examination and by EKG on admission. -Continue metoprolol and diltiazem -Hold home Eliquis now in preparation for possible surgical procedure Now on Heparin drip as of 05/16/2022 (14) Transient cerebral ischemia: Plan: Continue home aspirin, statin History of TIA (15) Hyperlipidemia: Plan: - Continue statin. (16) GERD (gastroesophageal reflux disease): Plan: - Continue PPI. Plan DVT prophylaxis- Heparin gtt Disposition-continued stay on med/surg pending further GI workup DNR/DNI Admission and Anticipated Discharge Date Admission Date: May 09, 2022 Supervising Physician Co-Signing Physician Notes Attending Attestation - Chart reviewed, care plan d/w PA Chava Silverman. I agree w/ the jewell components of his documentation. Sharath Olivarez MD Subjective Patient seen and examined at bedside. Son was present. Patient continues to be multiple bouts of diarrhea. She has tested negative for C. difficile. No melena or hematochezia. No hematemesis. Patient is tolerating food with no nausea or vomiting. Minimal abdominal pain. No pain with deep palpation. No shortness of breath. No chest pain or tightness. Patient does have left flank pain which is ongoing. No fever, chills, sweats, rigors. Review of Systems Review of Systems: A total of 10 systems was reviewed and is negative other than as listed in the HPI Physical Exam Physical Exam: GENERAL : No acute distress EYES: No icterus, gaze conjugate NOSE: No evidence of epistaxis MOUTH: No lesions or candidiasis NECK: Supple LUNGS: CTA B/L, no wheezes, rales or rhonchi HEART: Regular, rate controlled ABDOMEN: Soft, NT, ND, BS Present. Hyperactive bowel sounds. No rebound tenderness or guarding. EXTREMITIES: No LE edema, pedal pulses intact NEURO: A&OX3 Results & Data Results & Data ([facility]) Vital Signs (Past 12 Hours) Vital Signs Temp Pulse Resp BP Pulse Ox O2 Del Method 05/20/22 14:50 36.5 C 69 16 137/74 97 Room Air 05/20/22 08:35 Room Air 05/20/22 07:30 36.7 C 75 16 147/85 H 97 Room Air PG Care Time/CCT Total # of Minutes Spent Total Time Spent with Patient: Total time spent is greater than 50% in coordination of care (as documented) at patient's floor/unit and/or counseling patient: Coding Level of Care Code 52722 SUB INP/OBS CARE MIN Diagnoses Abdominal pain R10.9 Pancreatic mass K86.89 Superior mesenteric artery stenosis K55.1 Ischemic colitis K55.9 Hypokalemia E87.6 Hypertension I10 UTI (urinary tract infection) N39.0 Hiatal hernia K44.9 Malignant melanoma of left lower leg C43.72 Anemia D64.9 Elevated troponin R77.8 Glaucoma H40.9 Paroxysmal atrial fibrillation I48.0 Transient cerebral ischemia G45.9 Hyperlipidemia E78.5 GERD (gastroesophageal reflux disease) K21.9
[2022-05-20] MEDS: NEVANAC OPR SCH (20:31)
[2022-05-20] MEDS: ATORVASTATIN 10 MG TAB PO SCH (20:34)
[2022-05-20] MEDS: IRON SUCROSE 300 MG in SODIUM CHLORIDE 0.9% 250 ML IV SCH (21:46)
[2022-05-21 00:03] LABS: Partial Thromboplastin Ratio > 5.1
[2022-05-21 00:19] LABS: Partial Thromboplastin Time > 139.0 Seconds (21.0-31.0)
[2022-05-21 02:35] LABS: Partial Thromboplastin Ratio 1.7
[2022-05-21 02:50] LABS: Partial Thromboplastin Time 47.2 Seconds (21.0-31.0)
[2022-05-21] MEDS: HEPARIN SODIUM/DEXTROSE 25,000 UNITS/500 ML BAG IV SCH (03:34)
[2022-05-21 04:41] LABS: Hematocrit (blood only) 33.9 % (34.1-44.9); Hemoglobin 10.4 g/dl (12.0-16.0); Mean Corpuscular Hemoglobin 24.8 pg (25.0-34.0); Mean Corpuscular Hgb Conc 30.7 g/dL (32.0-36.0); Mean Corpuscular Volume 80.9 fL (80.0-100.0); Platelet Count 398 K/uL (130-400); RDW Coefficient of Variation 21.8 % (11.5-14.5); RDW Standard Deviation 59.5 fL (36.4-46.3); Red Blood Count 4.19 M/uL (3.93-5.22); White Blood Count 8.16 K/ul (4.8-10.8)
[2022-05-21 05:08] LABS: BUN Creatinine Ratio 16.7 (10-20); Calcium 8.8 mg/dl (8.5-10.1); Creatinine Clr Calc Pharmacy 39.7 ml/min; Est GFR (African American) 89.1 ml/min; Est GFR (Non-African American) 76.9 ml/min; Potassium 4.3 mmol/L (3.5-5.1)
[2022-05-21 05:11] LABS: Partial Thromboplastin Ratio 1.9
[2022-05-21 05:47] LABS: Partial Thromboplastin Time 52.5 Seconds (21.0-31.0)
[2022-05-21] MEDS: LACTATED RINGER'S 1,000 ML IV SCH ×2 (06:39→16:43)
[2022-05-21 09:57] LABS: Partial Thromboplastin Ratio 1.9
[2022-05-21 09:58] LABS: Partial Thromboplastin Time 52.6 Seconds (21.0-31.0)
[2022-05-21] MEDS: BIMATOPROST 0.01% OP SOLN 2.5 ML BTL OP SCH (10:17)
[2022-05-21] MEDS: DORZOLAMIDE/TIMOLOL 22.3/6.8MG/ML 10 ML BTL OP SCH ×2 (10:17→22:02)
[2022-05-21] MEDS: dilTIAZem HCL 240 MG CAPCR PO SCH (10:18)
[2022-05-21] MEDS: ASPIRIN 81 MG ECTAB PO SCH (10:18)
[2022-05-21] MEDS: LIDOCAINE 5% 1 PATCH TD SCH (10:19)
[2022-05-21] MEDS: FLUTICASONE/VILANTEROL 100/25MCG 14 PUFFS/INHALER INH SCH (10:19)
[2022-05-21] MEDS: lisinopril 40 MG TAB PO SCH (10:20)
[2022-05-21] MEDS: METOPROLOL TARTRATE 25 MG TAB PO SCH ×2 (10:21→22:02)
[2022-05-21] MEDS: PANTOprazole 40 MG TAB PO SCH ×2 (10:21→22:03)
[2022-05-21] MEDS: POTASSIUM CHLORIDE CRTAB 20 MEQ TABCR PO SCH ×2 (10:22→22:03)
[2022-05-21] MEDS: SPIRONOLACTONE 100 MG TAB PO SCH (10:22)
--- NOTE | 2022-05-21 14:38 | Gastroenterology Progress Note ---
Date of Service May 21, 2022 Assessment & Plan (1) Hiatal hernia: Plan: UGI series completed 05/13 - partially intrathoracic stomach, no signs of GOO - PPI PO BID (2) Pancreatic mass: Plan: 32 x 26mm uncinate pancreas mass, may be contributing to SMV stenosis - Spoke w [facility] oncology. This lesion was previously bx'ed w benign findings. Still, w findings of SMV thrombosis and weight loss, suspect pancreas cancer. - Plan is now for OP EGD for FNA next week as an OP. (3) Colitis: Plan: Colestid Plan Continue diet. Admission and Anticipated Discharge Date Admission Date: May 09, 2022 Supervising Physician Co-Signing Physician Notes ATTG ADD: I interviewed and examined pt, reviewed chart and labs. Pt rain PO, mi ld abdominal pain with eating. She had 4 liquid, urgent BM's today. On exam, she is comfortable, abd soft and ND. Labs unremarkable. Plan EUS bx as outpt next week. Trial of colestid once for diarrhea. OK to transition to oral anti-coagulant, but will defer to PCP. Subjective GI following for large HH, ischemic colitis, SMV thrombosis, pancreas mass, diarrhea. Continues w diarrhea. one dose of Imodium yesterday minimally effective. As of 2PM today pt reported 4 liquid BMs thus far. Mild, diffuse abd pain. Eating small amts of regular consistency diet. Review of Systems Review of Systems: ROS: Gen: +weakness/weight loss Eyes: No eye redness, or pain, no recent vision changes Resp: No SOB, no cough Cardio: No palpitations/irregular beats, no chest pain GI: As per HPI, otherwise (-) : Denies pain on urination Skin: pale, no jaundice, itching or new rashes Ext: no edema, no focal weakness Physical Exam Constitutional: well developed, + ill appearing and + frail appearing; no acute distress (uncomfortable) Eyes: PERRL, conjunctivae normal, anicteric sclerae ENMT: external ear and nose normal, oropharynx normal Neck: trachea midline, no thyromegaly Respiratory: normal respiratory effort, lungs clear to auscultation Cardiovascular: RRR, no murmur, no edema Gastrointestinal (Abdomen): normal bowel sounds, soft, nontender, no hepatosplenomegaly Skin: normal turgor; no rashes and no jaundice Neurologic: PERRL, EOMI, accommodation nl, no face palsy, no dysarthria Psychiatric: A+Ox3, euthymic affect Lymphatic: no cervical or axillary lymphadenopathy Results & Data ([facility]) Vital Signs (Past 12 Hours) Vital Signs Temp Pulse Resp BP Pulse Ox O2 Del Method 05/21/22 07:51 36.6 C 77 16 152/87 H 96 Room Air Laboratory Results WBC 8.16, Hb 10.4, HCT 33.9, PLT S 52, NA 137, K4.3, CL 104, CO2 25, BUN 12, CR 0.72, glucose 97 Diagnostic Findings Abd x-ray 05/14/22: nonobstructive bowel gas pattern. There are mildly gas- distended loops of small bowel without judy obstruction. CTAP w w/o contrast 05/09/22: 1. Redemonstration of a poorly defined uncinate process mass. If not previously characterized, tissue sampling is recommended. 2. There is narrowing of the superior mesenteric vein as it traverses the area of the mass. No definite superior mesenteric vein thrombus, however the vein is narrowed by the uncinate process mass. 3. Thickening of the sigmoid flexure of the colon is nonspecific and may represent infectious/inflammatory colitis. 4. Large hiatal hernia which appears to be chronic.
[2022-05-21] MEDS ORDERED: COLESTIPOL HCL 1 GM TAB PO ONE (15:45)
--- NOTE | 2022-05-21 19:12 | Hospitalist Progress Note ---
Date of Service May 21, 2022 Assessment & Plan (1) Abdominal pain: Plan: Attending: Dr. Olivarez Impression: Patient admitted 05/09/[address] abdomen pelvis showed no obstruction but probable ischemic bowel. Surgery and gastroenterology both consulted. Nonsurgical at this time. Patient was scheduled for EUS with gastroenterology today. However, this had to be cancelled and will be done outpatient next week. Stool was negative for C. difficile. No hematochezia or melena. Afebrile Patient presents with 27 lb unintentional weight loss over past 6 months while undergoing chemotherapy for her melanoma, but most of the weight loss came in the last few weeks. Having epigastric abdominal pain off and on for many months, but presented with 1 week of significantly worsening abdominal pain/bloating, nausea, vomiting, and constipation. On admission, with WBC 26, lactate elevated at 3.5, procalcitonin elevated at 12 She IS afebrile LFTs and lipase are normal CT A/P showed: * Hypodense infiltrative mass, measuring approximately 3 x 2.8 cm, likely arising from the uncinate process. 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 This is consistent with a neoplasm and pancreaticadenocarcinoma is a primary consideration. An infiltrative mesenteric mass could appear similar. GI consultation for consideration for EUS guided biopsy is recommended. * Wall thickening of the transverse colon with mild adjacent stranding. This suggests a nonspecific colitis. Venous ischemic colitis is within the differential given the SMA stenosis/occlusion. * Large hiatal hernia. Moderately distended partially visualized intrathoracic stomach with air-fluid level. Abdominal pain and nausea/vomiting could be secondary to very large hiatal hernia, plus the transverse colitis and also could be related to the pancreatic mass and SMA stenosis or occlusion Lactic acidosis now resolved with IV fluids. There is no portal venous gas or pneumatosis noted on CT Her abdominal pain and nausea is resolved since admission. As per admitting discussion with GI, there is no role for vascular intervention for the near/complete occlusion of the SMV. Anatomically, occlusion of this could potentially cause the transverse colitis. The pancreatic mass certainly could be a pancreatic cancer. Alternatively, perhaps metastatic disease from her known metastatic melanoma? Leukocytosis improving Started IV Zosyn on admission. Discussed with GI. Will discontinue antibiotics today. -Patient is tolerating diet. GI has been manageing -Continue IV fluid hydration with LR but lowered to 100 mL/h to avoid volume overload -EUS for biopsy of pancreatic mass to be completed as an outpatient. This is being coordinated by [facility] Continue pain management with [facility] Patient continues with multiple bouts of diarrhea throughout the day. Discussed with GI. They will start Imodium since this appears to be ischemic. Not appropriate for discharge as long as she is have copious diarrhea. Continue to wait on coordination of EUS. Discussed again with gastroenterology today. (2) Pancreatic mass: Plan: As above (3) Superior mesenteric artery stenosis: Plan: Hypodense infiltrative mass, measuring approximately 3 x 2.8 cm, likely arising from the uncinate process. 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 If it can be done this week, will continue heparin gtt (4) Ischemic colitis: Plan: Evidence of ischemic colitis on colonoscopy performed on 05/15 Patient started on Cipro and Flagyl intravenously and was switched to oral cipro /flagyl on 05/17 Patient initially started on Zosyn upon admission to the hospital Patient had leukocytosis of 26,000 most likely secondary to ischemic colitis that is improving Proceed with adequate hydration Advance diet to heart healthy diet Imodium to be ordered by GI Continue to monitor labs (5) Hypokalemia: Plan: Severe hypokalemia with potassium 2.1 on 05/14 etiology unclear, patient is estrellita ing calcium channel melquiades which can cause hypokalemia otherwise there is no other etiology for her hypokalemia Patient received multiple rounds of KCl Patient started on K-Dur 40 mg twice daily Patient started on potassium sparing agent, spironolactone 100 mg daily Patient started on lisinopril 40 mg daily Increase the dose of spironolactone 200 mg daily as she is mildly hypokalemic Potassium is now corrected to 4.0 Magnesium corrected today. Follow serial labs (6) Hypertension: Plan: Uncontrolled hypertension, BP meds has been adjusted, monitor for now -The dose of Cardizem increased to 240 05/18 Systolic blood pressure is now stable. Continue to monitor per protocol (7) UTI (urinary tract infection): Plan: The patient has active urine sediment, the culture is not conclusive due to contamination Follow-up UA looks clear Patient has been on several days of Zosyn for ischemic bowel. 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 - Continues to follow with [facility]. No acute issues or pain (9) Anemia: Plan: HgB 10.4 Received IV infusion during this admission Had an IV iron infusion with her oncologist at [facility] several weeks ago No evidence of blood loss at this time Could be related to ongoing chemotherapy with melanoma versus occult GI blood loss-perhaps Laith ulcers from large hiatal hernia? Had colonoscopy years admission did not show any other source of bleeding No melena or hematochezia Follow serial labs (10) Elevated troponin: Plan: Troponin checked on 05/10 due to epigastric pain and nausea/vomiting and found to be elevated at 237 Repeat up slightly to 278 Most likely myocardial demand ischemia secondary to GI issues and abdominal pain with nausea/vomiting, colitis as above ECG without ischemic changes Continue now trending downward. Last troponin 05/10/2022. No chest pain or tightness. No known underlying CAD Remains on aspirin and statin Continues on heparin drip for paroxysmal atrial fibrillation since DOAC needed to be held Echocardiogram with preserved left ventricular ejection fraction of 60 to 65% No regional wall motion abnormalities Mild to moderate tricuspid regurgitation with mild mitral regurgitation. No significant change to echocardiogram as compared to 03/01/2021 (11) Glaucoma: Plan: Continue home eyedrops No complaints of eye pain or change in vision (12) Paroxysmal atrial fibrillation: Plan: Patient continues on anticoagulation with heparin drip. Will resume home Eliquis after EUS Continue metoprolol and diltiazem Currently appears to be in normal sinus rhythm with good rate control (13) Transient cerebral ischemia: Plan: History of TIA in the past. No acute focal deficits. Continue with aspirin and statin (14) Hyperlipidemia: Plan: Continue atorvastatin (15) GERD (gastroesophageal reflux disease): Plan: Continue PPI Omeprazole 20 mg p.o. daily as a home medication Plan Pending arrangements for outpatient EUS. Poss[facility] to be [facility] at [facility] tomorrow. Awaiting coordination with gastroenterology. Admission and Anticipated Discharge Date Admission Date: May 09, 2022 Supervising Physician Co-Signing Physician Notes Attending Attestation - Chart reviewed, care plan d/w JADEN Silverman. I agree w/ the jewell components of his documentation except the stenosis (or thrombosis) seen is of the SMV, not the SMA, per latest radiological reports. Sharath Olivarez MD Subjective Attending: Dr. Olivarez Patient seen and examined at bedside. and daughter were present. Patient has better control of pain today. Lidocaine patch applied to left flank was beneficial. Patient seem to be doing better with her diarrhea but then it recurred last evening and into day-to-day. GI is managing Imodium. Patient has no abdominal pain. No nausea or vomiting. Patient and family expressed frustration with delay in EUS but her understanding. No other acute complaints. Review of Systems Review of Systems: A total of 10 systems was reviewed and is negative other than as listed in the HPI Physical Exam Physical Exam: GENERAL : No acute distress EYES: No icterus, gaze conjugate NOSE: No evidence of epistaxis MOUTH: No lesions or candidiasis NECK: Supple LUNGS: CTA B/L, no wheezes, rales or rhonchi HEART: Regular, rate controlled ABDOMEN: Soft, NT, ND, BS Present EXTREMITIES: No LE edema, pedal pulses intact NEURO: A&OX3 Results & Data Results & Data ([facility]) Vital Signs (Past 12 Hours) Vital Signs Temp Pulse Resp BP Pulse Ox O2 Del Method 05/21/22 15:18 36.7 C 78 16 139/84 98 Room Air 05/21/22 07:51 36.6 C 77 16 152/87 H 96 Room Air Critical Care Results & Data Vital Signs (Past 12 Hours) Vital Signs Temp Pulse Resp BP Pulse Ox O2 Del Method 05/21/22 15:18 36.7 C 78 16 139/84 98 Room Air 05/21/22 07:51 36.6 C 77 16 152/87 H 96 Room Air Lab & Micro Results (Past 24 Hours) No Data to Display Na 136 mmol/L (136-145) 05/24/22 K 4.2 mmol/L (3.5-5.1) 05/24/22 Cl 104 mmol/L (98-107) 05/24/22 CO2 24 mmol/L (21-32) 05/24/22 Anion Gap 8 (3-11) 05/24/22 BUN 12 mg/dl (6-23) 05/24/22 Creatinine 0.68 mg/dl (0.6-1.2) 05/24/22 Estimated GFR ( Amer) 93.1 ml/min 05/24/22 Estimated GFR (Non-Af Amer) 80.3 ml/min 05/24/22 BUN/Creatinine Ratio 17.6 (10-20) 05/24/22 Glu 89 mg/dl (70-99(Fasting)) 05/24/22 Ca 8.8 mg/dl (8.5-10.1) 05/24/22 Mg 1.8 mg/dl (1.7-2.4) 05/24/22 08:26 Calcium Level 8.8 mg/dl (8.5-10.1) 05/24/22 08:26 I & O Totals 24 Hours 05/20/22 05/21/22 05/22/22 06:59 06:59 06:59 Intake Total 2450.333 / 2450.333 3467.451 / 3467.451 1450 / 1450 Output Total 2 / 2 Balance 2450.333 / 2450.333 3465.451 / 3465.451 1450 / 1450 Cumulative 05/09/22 12:10 thru 05/21/22 16:42 Intake Total 91102.467 Output Total 460 Balance 79691.467 RT Ventilator Mngmt (Last Documented) Ventilator Ordered Settings Respiratory Rate 16 05/21/22 15:18 Ventilator - PT Measurements Respiratory Rate 16 PG Care Time/CCT Total # of Minutes Spent Total Time Spent with Patient: Total time spent is greater than 50% in coordination of care (as documented) at patient's floor/unit and/or counseling patient: Coding Level of Care Code 00421 SUB INP/OBS CARE 2/35MIN Diagnoses Abdominal pain R10.9 Pancreatic mass K86.89 Superior mesenteric artery stenosis K55.1 Ischemic colitis K55.9 Hypokalemia E87.6 Hypertension I10 UTI (urinary tract infection) N39.0 Malignant melanoma of left lower leg C43.72 Anemia D64.9 Elevated troponin R77.8 Glaucoma H40.9 Paroxysmal atrial fibrillation I48.0 Transient cerebral ischemia G45.9 Hyperlipidemia E78.5 GERD (gastroesophageal reflux disease) K21.9
[2022-05-21] MEDS: NEVANAC OPR SCH (22:01)
[2022-05-21] MEDS: ATORVASTATIN 10 MG TAB PO SCH (22:03)
[2022-05-22] MEDS: LACTATED RINGER'S 1,000 ML IV SCH ×3 (01:49→20:14)
[2022-05-22] MEDS: METOPROLOL TARTRATE 25 MG TAB PO SCH ×2 (09:09→20:12)
[2022-05-22] MEDS: PANTOprazole 40 MG TAB PO SCH ×2 (09:09→20:13)
[2022-05-22] MEDS: lisinopril 40 MG TAB PO SCH (09:10)
[2022-05-22] MEDS: SPIRONOLACTONE 100 MG TAB PO SCH (09:10)
[2022-05-22] MEDS: ASPIRIN 81 MG ECTAB PO SCH (09:10)
[2022-05-22] MEDS: BIMATOPROST 0.01% OP SOLN 2.5 ML BTL OP SCH (09:10)
[2022-05-22] MEDS: POTASSIUM CHLORIDE CRTAB 20 MEQ TABCR PO SCH ×2 (09:10→20:13)
[2022-05-22] MEDS: dilTIAZem HCL 240 MG CAPCR PO SCH (09:10)
[2022-05-22] MEDS: DORZOLAMIDE/TIMOLOL 22.3/6.8MG/ML 10 ML BTL OP SCH ×2 (09:11→20:12)
[2022-05-22] MEDS: FLUTICASONE/VILANTEROL 100/25MCG 14 PUFFS/INHALER INH SCH (09:12)
[2022-05-22] MEDS: LIDOCAINE 5% 1 PATCH TD SCH (09:12)
[2022-05-22 09:37] LABS: Hemoglobin 9.8 g/dl (12.0-16.0); Mean Corpuscular Hemoglobin 24.8 pg (25.0-34.0); Mean Corpuscular Hgb Conc 30.6 g/dL (32.0-36.0); Mean Platelet Volume 9.3 fL (9.4-12.3); Platelet Count 398 K/uL (130-400); RDW Coefficient of Variation 22.1 % (11.5-14.5); RDW Standard Deviation 60.8 fL (36.4-46.3); Red Blood Count 3.95 M/uL (3.93-5.22); White Blood Count 7.32 K/ul (4.8-10.8)
[2022-05-22 09:50] LABS: Partial Thromboplastin Ratio 1.5; Partial Thromboplastin Time 41.9 Seconds (21.0-31.0)
[2022-05-22 10:00] LABS: BUN Creatinine Ratio 18.8 (10-20); Calcium 8.8 mg/dl (8.5-10.1); Creatinine Clr Calc Pharmacy 41.4 ml/min; Est GFR (African American) 92.6 ml/min; Est GFR (Non-African American) 79.9 ml/min; Potassium 4.1 mmol/L (3.5-5.1)
--- NOTE | 2022-05-22 11:56 | Gastroenterology Progress Note ---
Date of Service May 22, 2022 Assessment & Plan (1) Hiatal hernia: Plan: UGI series completed 05/13 - partially intrathoracic stomach, no signs of GOO - PPI PO BID (2) Pancreatic mass: Plan: 32 x 26mm uncinate pancreas mass, may be contributing to SMV stenosis Prior bx at [facility] [facility] benign. OP EUS on Thursday at to bx the pancreas mass. Pt is aware. Plan is to stay on Lovenox and ASA 81mg/day through the procedure [facility] Pt aware of plan, told NPO after midnight Thursday. Agrees to plan. (3) Colitis: Plan: Colestid, but hold if not passing atleast 3BMs/day. Discussed the importance of this w pt in detail. Plan Continue diet. Admission and Anticipated Discharge Date Admission Date: May 09, 2022 Supervising Physician Co-Signing Physician Notes Attg add: I interviewed and examined pt, reviewed chart and labs. Pt with no BM's this am. Would cont colestid 1-2 gms per day for diarrhea. EUS bx scheduled for Thursday as outpt - ac will need to be held for this. Will sign off, please call with questions. Subjective Pt reports 6 small liquid BMs between 9PM and 6Am this morning then none since 6AM. Intermittently having nausea and diffuse abd pain after eating otherwise no abdominal pain. Doesn't like the taste of many foods and the liquid protein supplements. She is tolerating yogurt well. No blood in BMs. GI issues: hiatal hernia, ischemic colitis, diarrhea, pancreas mass. Review of Systems Review of Systems: ROS: Gen: +weakness/weight loss Eyes: No eye redness, or pain, no recent vision changes Resp: No SOB, no cough Cardio: No palpitations/irregular beats, no chest pain GI: As per HPI, otherwise (-) : Denies pain on urination Skin: pale, no jaundice, itching or new rashes Ext: no edema, no focal weakness Physical Exam Constitutional: well developed, + ill appearing and + frail appearing; no acute distress (uncomfortable) Eyes: PERRL, conjunctivae normal, anicteric sclerae ENMT: external ear and nose normal, oropharynx normal Neck: trachea midline, no thyromegaly Respiratory: normal respiratory effort, lungs clear to auscultation Cardiovascular: RRR, no murmur, no edema Gastrointestinal (Abdomen): normal bowel sounds, soft, nontender, no hepatosplenomegaly Skin: normal turgor; no rashes and no jaundice Neurologic: PERRL, EOMI, accommodation nl, no face palsy, no dysarthria Psychiatric: A+Ox3, euthymic affect Lymphatic: no cervical or axillary lymphadenopathy Results & Data ([facility]) Vital Signs (Past 12 Hours) Vital Signs Temp Pulse Resp BP BP Pulse Ox O2 Del Method 05/22/22 07:47 36.5 C 76 16 172/79 H 156/89 H 98 Room Air Laboratory Results WBC 7.3, Hb 9.8, Hct 32, Plts 398, Na 136, K 4.1, Cl 106, CO2 23, BUN 13, Cr 0.69, glucose 120. Diagnostic Findings KUB 05/14/22: Nonobstructive bowel gas pattern. There are mildly gas-distended loops of small bowel without judy obstruction. UGI series 05/13/22: 1. Large sliding type hiatal hernia with partially intrathoracic stomach. 2. No evidence of gastric outlet obstruction.
[2022-05-22] MEDS: HEPARIN SODIUM/DEXTROSE 25,000 UNITS/500 ML BAG IV SCH ×3 (12:00→23:29)
[2022-05-22 16:46] LABS: Partial Thromboplastin Ratio 1.5; Partial Thromboplastin Time 41.3 Seconds (21.0-31.0)
[2022-05-22] MEDS: NEVANAC OPR SCH (20:03)
[2022-05-22] MEDS: ATORVASTATIN 10 MG TAB PO SCH (20:12)
--- NOTE | 2022-05-22 20:17 | Hospitalist Progress Note ---
Date of Service May 22, 2022 Assessment & Plan (1) Abdominal pain: Plan: Attending: Dr. Olivarez Impression: Patient admitted 05/09/[address] abdomen pelvis showed no obstruction but probable ischemic bowel. Surgery and gastroenterology both consulted. Nonsurgical at this time. Patient was scheduled for EUS with gastroenterology today. However, this had to be cancelled and will be done outpatient next week. Stool was negative for C. difficile. No hematochezia or melena. Afebrile Patient presents with 27 lb unintentional weight loss over past 6 months while undergoing chemotherapy for her melanoma, but most of the weight loss came in the last few weeks. Having epigastric abdominal pain off and on for many months, but presented with 1 week of significantly worsening abdominal pain/bloating, nausea, vomiting, and constipation. On admission, with WBC 26, lactate elevated at 3.5, procalcitonin elevated at 12 She IS afebrile LFTs and lipase are normal CT A/P showed: * Hypodense infiltrative mass, measuring approximately 3 x 2.8 cm, likely arising from the uncinate process. 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 This is consistent with a neoplasm and pancreaticadenocarcinoma is a primary consideration. An infiltrative mesenteric mass could appear similar. GI consultation for consideration for EUS guided biopsy is recommended. * Wall thickening of the transverse colon with mild adjacent stranding. This suggests a nonspecific colitis. Venous ischemic colitis is within the differential given the SMA stenosis/occlusion. * Large hiatal hernia. Moderately distended partially visualized intrathoracic stomach with air-fluid level. Abdominal pain and nausea/vomiting could be secondary to very large hiatal hernia, plus the transverse colitis and also could be related to the pancreatic mass and SMA stenosis or occlusion Lactic acidosis now resolved with IV fluids. There is no portal venous gas or pneumatosis noted on CT Her abdominal pain and nausea is resolved since admission. As per admitting discussion with GI, there is no role for vascular intervention for the near/complete occlusion of the SMV. Anatomically, occlusion of this could potentially cause the transverse colitis. The pancreatic mass certainly could be a pancreatic cancer. Alternatively, perhaps metastatic disease from her known metastatic melanoma? Leukocytosis improving Started IV Zosyn on admission. Discussed with GI. Will discontinue antibiotics today. -Patient is tolerating diet. GI has been managing -Continue IV fluid hydration with LR but lowered to 100 mL/h to avoid volume overload -EUS for biopsy of pancreatic mass to be completed as an outpatient. [facility] Continue pain management with [facility] Patient continues with multiple bouts of diarrhea throughout the day. Discussed with GI. Started Colestipol and then increased to BID.Patient is still having multiple bouts of diarrhea and does not feel comfortable for discharge. GI is aware and is continuing to manage stool output. Discussed again with gastroenterology today. EUS will be scheduled as an outpatient early need week Transition patient from Heparin gtt to Lovenox BID at discharge. 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 This will be done outpatient next week. Continue heparin gtt while inpatient. Transition to Lovenox BID on discharge (4) Ischemic colitis: Plan: Evidence of ischemic colitis on colonoscopy performed on 05/15 Patient started on Cipro and Flagyl intravenously and was switched to oral cipro /flagyl on 05/17 Patient initially started on Zosyn upon admission to the hospital Patient had leukocytosis of 26,000 most likely secondary to ischemic colitis that is improving Abx were discontinued Proceed with adequate hydration Advance diet to heart healthy diet Diarrhea and stool output being managed by GI Continue to monitor labs (5) Hypokalemia: Plan: Severe hypokalemia with potassium 2.1 on 05/14 etiology unclear, patient is taking calcium channel melquiades which can cause hypokalemia otherwise there is no other etiology for her hypokalemia Patient received multiple rounds of KCl Patient started on K-Dur 40 mg twice daily Patient started on potassium sparing agent, spironolactone 100 mg daily Patient started on lisinopril 40 mg daily Increase the dose of spironolactone 200 mg daily as she is mildly hypokalemic Potassium is now corrected Magnesium corrected Follow serial labs (6) Hypertension: Plan: Uncontrolled hypertension, BP meds has been adjusted, monitor for now -The dose of Cardizem increased to 240 05/18 Systolic blood pressure is now stable. Continue to monitor per protocol (7) UTI (urinary tract infection): Plan: The patient has active urine sediment, the culture is not conclusive due to contamination Follow-up UA looks clear Patient has been on several days of Zosyn for ischemic bowel. 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 - Continues to follow with [facility]. No acute issues or pain (9) Anemia: Plan: HgB stable Received IV infusion during this admission Had an IV iron infusion with her oncologist at [facility] several weeks ago No evidence of blood loss at this time Could be related to ongoing chemotherapy with melanoma versus occult GI blood loss-perhaps Laith ulcers from large hiatal hernia? Had colonoscopy years admission did not show any other source of bleeding No melena or hematochezia Follow serial labs (10) Elevated troponin: Plan: Troponin checked on 05/10 due to epigastric pain and nausea/vomiting and found to be elevated at 237 Repeat up slightly to 278 Most likely myocardial demand ischemia secondary to GI issues and abdominal pain with nausea/vomiting, colitis as above ECG without ischemic changes Continue now trending downward. Last troponin 05/10/2022. No chest pain or tightness. No known underlying CAD Remains on aspirin and statin Continues on heparin drip for paroxysmal atrial fibrillation since DOAC needed to be held Echocardiogram with preserved left ventricular ejection fraction of 60 to 65% No regional wall motion abnormalities Mild to moderate tricuspid regurgitation with mild mitral regurgitation. No significant change to echocardiogram as compared to 03/01/2021 (11) Glaucoma: Plan: Continue home eyedrops No complaints of eye pain or change in vision (12) Paroxysmal atrial fibrillation: Plan: Patient continues on anticoagulation with heparin drip. Will discharge home on Lovenox BID and then can resume home Eliquis after EUS Continue metoprolol and diltiazem Currently appears to be in normal sinus rhythm with good rate control (13) Transient cerebral ischemia: Plan: History of TIA in the past. No acute focal deficits. Continue with aspirin and statin (14) Hyperlipidemia: Plan: Continue atorvastatin (15) GERD (gastroesophageal reflux disease): Plan: Continue PPI Omeprazole 20 mg p.o. daily as a home medication Plan EUS outpatient next week Patient continues with frequent bowel movements. Meds being managed by GI As soon as diarrhea is controlled, patient can be discharged home pending EUS Physical therapy note updated. Now recommending rehab with 3 hours combined therapy daily. Will discuss with case management and with patient Admission and Anticipated Discharge Date Admission Date: May 09, 2022 Supervising Physician Co-Signing Physician Notes Attending Attestation - Chart reviewed, care plan d/w JADEN Silverman. I agree w/ the jewell components of his documentation except the stenosis (or thrombosis) seen is of the SMV, not the SMA, per latest radiological reports. Await EUS for pancreatic mass. EUS now scheduled for this coming week. Sharath Olivarez MD Subjective Attending: Dr. Olivarez Patient seen on 2 visits today. She seems to be doing better regarding her bowel movements as they are smaller and less frequent. Colestid was increased to twice daily. Pt reports 6 small liquid BMs between 9PM and 6Am this morning then none since 6AM. Intermittently having nausea and diffuse abd pain after eating otherwise no abdominal pain. Doesn't like the taste of many foods and the liquid protein supplements. She is tolerating yogurt well. No blood in BMs. Review of Systems Review of Systems: A total of 10 systems was reviewed and is negative other than as listed in the HPI Physical Exam Physical Exam: GENERAL : No acute distress EYES: No icterus, gaze conjugate NOSE: No evidence of epistaxis MOUTH: No lesions or candidiasis NECK: Supple LUNGS: CTA B/L, no wheezes, rales or rhonchi HEART: Regular, rate controlled ABDOMEN: Soft, NT, ND, BS Present EXTREMITIES: No LE edema, pedal pulses intact NEURO: A&OX3 Results & Data Results & Data ([facility]) Vital Signs (Past 12 Hours) Vital Signs Temp Pulse Resp BP BP Pulse Ox O2 Del Method 05/22/22 20:11 36.6 C 68 16 149/77 H 96 Room Air 05/22/22 15:45 36.7 C 14 125/70 96 Room Air Critical Care Results & Data Vital Signs (Past 12 Hours) Vital Signs Temp Pulse Resp BP BP Pulse Ox O2 Del Method 05/22/22 20:11 36.6 C 68 16 149/77 H 96 Room Air 05/22/22 15:45 36.7 C 14 125/70 96 Room Air Lab & Micro Results (Past 24 Hours) No Data to Display Na 136 mmol/L (136-145) 05/24/22 K 4.2 mmol/L (3.5-5.1) 05/24/22 Cl 104 mmol/L (98-107) 05/24/22 CO2 24 mmol/L (21-32) 05/24/22 Anion Gap 8 (3-11) 05/24/22 BUN 12 mg/dl (6-23) 05/24/22 Creatinine 0.68 mg/dl (0.6-1.2) 05/24/22 Estimated GFR ( Amer) 93.1 ml/min 05/24/22 Estimated GFR (Non-Af Amer) 80.3 ml/min 05/24/22 BUN/Creatinine Ratio 17.6 (10-20) 05/24/22 Glu 89 mg/dl (70-99(Fasting)) 05/24/22 Ca 8.8 mg/dl (8.5-10.1) 05/24/22 Mg 1.8 mg/dl (1.7-2.4) 05/24/22 08:26 Calcium Level 8.8 mg/dl (8.5-10.1) 05/24/22 08:26 I & O Totals 24 Hours 05/21/22 05/22/22 05/23/22 06:59 06:59 06:59 Intake Total 3467.451 / 3467.451 2842.7 / 2842.7 2238.750 / 2238.750 Output Total 2 / 2 4 / 4 Balance 3465.451 / 3465.451 2842.7 / 2842.7 2234.750 / 2234.750 Cumulative 05/09/22 12:10 thru 05/22/22 20:14 Intake Total 52865.917 Output Total 464 Balance 38398.917 RT Ventilator Mngmt (Last Documented) Ventilator Ordered Settings Respiratory Rate 16 05/22/22 20:11 Ventilator - PT Measurements Respiratory Rate 16 PG Care Time/CCT Total # of Minutes Spent Total Time Spent with Patient: Total time spent is greater than 50% in coordination of care (as documented) at patient's floor/unit and/or counseling patient: Coding Level of Care Code 02699 SUB INP/OBS CARE 235MIN Diagnoses Abdominal pain R10.9 Pancreatic mass K86.89 Superior mesenteric artery stenosis K55.1 Ischemic colitis K55.9 Hypokalemia E87.6 Hypertension I10 UTI (urinary tract infection) N39.0 Malignant melanoma of left lower leg C43.72 Anemia D64.9 Elevated troponin R77.8 Glaucoma H40.9 Paroxysmal atrial fibrillation I48.0 Transient cerebral ischemia G45.9 Hyperlipidemia E78.5 GERD (gastroesophageal reflux disease) K21.9
[2022-05-22] MEDS: COLESTIPOL HCL 1 GM TAB PO SCH (21:32)
[2022-05-23 00:13] LABS: Partial Thromboplastin Ratio 1.7
[2022-05-23 00:22] LABS: Partial Thromboplastin Time 46.9 Seconds (21.0-31.0)
[2022-05-23] MEDS: LACTATED RINGER'S 1,000 ML IV SCH ×2 (05:56→15:18)
[2022-05-23 07:13] LABS: Hematocrit (blood only) 30.4 % (34.1-44.9); Hemoglobin 9.3 g/dl (12.0-16.0); Mean Corpuscular Hemoglobin 24.5 pg (25.0-34.0); Mean Corpuscular Hgb Conc 30.6 g/dL (32.0-36.0); Mean Corpuscular Volume 80.2 fL (80.0-100.0); Mean Platelet Volume 9.2 fL (9.4-12.3); Platelet Count 366 K/uL (130-400); RDW Coefficient of Variation 22.4 % (11.5-14.5); RDW Standard Deviation 62.1 fL (36.4-46.3); Red Blood Count 3.79 M/uL (3.93-5.22); White Blood Count 7.17 K/ul (4.8-10.8)
[2022-05-23 07:35] LABS: BUN Creatinine Ratio 16.9 (10-20); Calcium 8.5 mg/dl (8.5-10.1); Creatinine Clr Calc Pharmacy 40.2 ml/min; Est GFR (African American) 90.7 ml/min; Est GFR (Non-African American) 78.2 ml/min; Potassium 4.6 mmol/L (3.5-5.1)
[2022-05-23] MEDS ORDERED: LOPERAMIDE HCL 2 MG CAP PO STA (09:14)
[2022-05-23] MEDS ORDERED: LOPERAMIDE HCL 2 MG CAP PO PRN (09:15)
[2022-05-23] MEDS: LIDOCAINE 5% 1 PATCH TD SCH (09:21)
[2022-05-23] MEDS: lisinopril 40 MG TAB PO SCH (09:21)
[2022-05-23] MEDS: BIMATOPROST 0.01% OP SOLN 2.5 ML BTL OP SCH (09:21)
[2022-05-23] MEDS: DORZOLAMIDE/TIMOLOL 22.3/6.8MG/ML 10 ML BTL OP SCH ×2 (09:21→20:23)
[2022-05-23] MEDS: FLUTICASONE/VILANTEROL 100/25MCG 14 PUFFS/INHALER INH SCH (09:21)
[2022-05-23] MEDS: COLESTIPOL HCL 1 GM TAB PO SCH ×2 (09:21→21:46)
[2022-05-23] MEDS: dilTIAZem HCL 240 MG CAPCR PO SCH (09:22)
[2022-05-23] MEDS: ASPIRIN 81 MG ECTAB PO SCH (09:22)
[2022-05-23] MEDS: PANTOprazole 40 MG TAB PO SCH ×2 (09:22→20:24)
[2022-05-23] MEDS: METOPROLOL TARTRATE 25 MG TAB PO SCH ×2 (09:22→20:24)
[2022-05-23] MEDS: POTASSIUM CHLORIDE CRTAB 20 MEQ TABCR PO SCH ×2 (09:22→20:24)
[2022-05-23] MEDS: SPIRONOLACTONE 100 MG TAB PO SCH (09:23)
--- NOTE | 2022-05-23 09:26 | Gastroenterology Progress Note ---
Date of Service May 23, 2022 Assessment & Plan (1) Hiatal hernia: (2) Pancreatic mass: (3) Colitis: Plan DC Colestid, not effective. Imodium 2-3 x a day. Continue low residue diet. Plan is for discharge when diarrhea is improved, then OP EUS on Thu at . Admission and Anticipated Discharge Date Admission Date: May 09, 2022 Supervising Physician Co-Signing Physician Notes Attg add: I interviewed and examined pt, reviewed chart and labs. Plan as above. Subjective 86, female history melanoma, ischemic colitis, SMV stenosis/occlusion, pancreas mass with previous biopsy benign. Patient reporting small liquid bowel movements hourly no improvement on Colestid 1 g twice daily. Denies any abdominal pain. Able to tolerate eating small amounts. Reports increasing strength, able to walk some yesterday. Her daughter is in the room with her today. Review of Systems Review of Systems: ROS: Gen: + weakness -improving, no fevers, + weight loss Eyes: No eye redness, or pain, no recent vision changes Resp: No SOB, no cough Cardio: No palpitations/irregular beats, no chest pain GI: No abdominal pain, no nausea/vomiting : Denies pain on urination Skin: No jaundice, itching or new rashes Total of 12 systems reviewed, all others negative Physical Exam Constitutional: + ill appearing (Chronically), + frail appearing, cooperative and comfortable Eyes: PERRL, conjunctivae normal, anicteric sclerae ENMT: external ear and nose normal, oropharynx normal Neck: trachea midline, no thyromegaly Respiratory: normal respiratory effort, lungs clear to auscultation Cardiovascular: RRR, no murmur, no edema Gastrointestinal (Abdomen): normal bowel sounds, soft, nontender, no hepatosplenomegaly Musculoskeletal: no cyanosis or clubbing, extremities motor strength 5/5 Skin: no rashes, warm and dry Neurologic: PERRL, EOMI, accommodation nl, no face palsy, no dysarthria Psychiatric: A+Ox3, euthymic affect Lymphatic: no cervical or axillary lymphadenopathy Results & Data ([facility]) Vital Signs (Past 12 Hours) Vital Signs Temp Pulse Resp BP Pulse Ox O2 Del Method 05/23/22 07:49 36.6 C 88 16 130/76 96 Room Air Laboratory Results WBC 7.7, Hb 9.3, HCT 30, PLT S366, NA 136, K4.6, CL 106, CO2 25, BUN 12, CR 0.7, glucose 94 Stool for C-diff (-) Diagnostic Findings CTAP 05/12/22: 1. Redemonstration of a poorly defined uncinate process mass. If not previously characterized, tissue sampling is recommended. 2. There is narrowing of the superior mesenteric vein as it traverses the area of the mass. No definite superior mesenteric vein thrombus, however the vein is narrowed by the uncinate process mass. 3. Thickening of the sigmoid flexure of the colon is nonspecific and may represent infectious/inflammatory colitis. 4. Large hiatal hernia which appears to be chronic. Flex sig 05/16/22: circumferential ulcer of the transverse/left colon w luminal narrowing. KUB 05/14/22: Nonobstructive bowel gas pattern. There are mildly gas-distended loops of small bowel without judy obstruction.
[2022-05-23 10:17] LABS: Partial Thromboplastin Ratio 1.7
[2022-05-23 10:19] LABS: Partial Thromboplastin Time 46.9 Seconds (21.0-31.0)
[2022-05-23] MEDS: HEPARIN SODIUM/DEXTROSE 25,000 UNITS/500 ML BAG IV SCH (18:45)
[2022-05-23] MEDS: ATORVASTATIN 10 MG TAB PO SCH (20:22)
[2022-05-23] MEDS: NEVANAC OPR SCH (20:23)
[2022-05-24] MEDS: LACTATED RINGER'S 1,000 ML IV SCH ×3 (01:10→20:15)
[2022-05-24] MEDS: DORZOLAMIDE/TIMOLOL 22.3/6.8MG/ML 10 ML BTL OP SCH ×2 (08:41→20:13)
[2022-05-24] MEDS: dilTIAZem HCL 240 MG CAPCR PO SCH (08:42)
[2022-05-24] MEDS: POTASSIUM CHLORIDE CRTAB 20 MEQ TABCR PO SCH ×2 (08:42→20:02)
[2022-05-24] MEDS: PANTOprazole 40 MG TAB PO SCH ×2 (08:42→20:02)
[2022-05-24] MEDS: LIDOCAINE 5% 1 PATCH TD SCH (08:43)
[2022-05-24] MEDS: SPIRONOLACTONE 100 MG TAB PO SCH (08:43)
[2022-05-24] MEDS: lisinopril 40 MG TAB PO SCH (08:43)
[2022-05-24] MEDS: ASPIRIN 81 MG ECTAB PO SCH (08:43)
[2022-05-24] MEDS: FLUTICASONE/VILANTEROL 100/25MCG 14 PUFFS/INHALER INH SCH (08:43)
[2022-05-24] MEDS: METOPROLOL TARTRATE 25 MG TAB PO SCH ×2 (08:43→20:02)
[2022-05-24] MEDS: BIMATOPROST 0.01% OP SOLN 2.5 ML BTL OP SCH (08:44)
[2022-05-24 09:04] LABS: Partial Thromboplastin Ratio 1.6; Partial Thromboplastin Time 44.7 Seconds (21.0-31.0)
[2022-05-24 10:31] LABS: BUN Creatinine Ratio 17.6 (10-20); Calcium 8.8 mg/dl (8.5-10.1); Est GFR (African American) 93.1 ml/min; Est GFR (Non-African American) 80.3 ml/min; Magnesium 1.8 mg/dl (1.7-2.4); Potassium 4.2 mmol/L (3.5-5.1)
[2022-05-24] MEDS: COLESTIPOL HCL 1 GM TAB PO SCH ×2 (11:03→21:38)
[2022-05-24 16:05] LABS: Partial Thromboplastin Ratio 1.6
[2022-05-24 16:08] LABS: Partial Thromboplastin Time 45.1 Seconds (21.0-31.0)
[2022-05-24] MEDS: HEPARIN SODIUM/DEXTROSE 25,000 UNITS/500 ML BAG IV SCH (16:26)
--- NOTE | 2022-05-24 19:39 | Hospitalist Progress Note ---
Date of Service May 24, 2022 Assessment & Plan (1) Diarrhea: Plan[facility] s/p flex sig earlier this stay. Grossly the transverse colon looked like ischemic bowel per GI. She has had ongoing diarrhea - but improved with colestipol 1gm BID. Repeat c diff today negative. Can use loperamide prn in addition to standing colestipol. If diarrhea is refractory could consider trial of creon. K/mag wnl today. Of note - keytruda is associated with colitis as well. Keytruda has been used for her melanoma. 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 Remains on heparin drip. SMA was not affected based on last imaging study. SMV thrombosis can cause diarrhea. Exact etiology is unknown, but some sources state it can cause a secretory diarrhea due to ion channel disruption. (3) Pancreatic mass: Plan: uncinate process. EUS with biopsy by [facility] this week - need to clarify if this will be here at [facility] or [facility]. (4) Ischemic colitis: Plan: Evidence of ischemic colitis on colonoscopy performed on 05/15/22. Received course of broad-spectrum abx earlier this stay - now discontinued. Change diet to low fiber. Cont colestipol + loperamide prn. NO gross blood. NO peritonitis on exam. 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 (5) Hypokalemia: Plan: resolved for several days during this stay she was started on lisinopril + aldactone + K supplements these were titrated to large doses - 40mg and 200mg, respectively, along with 40meq BID of KCL cut lisinopril dose in 1/2 to 20mg daily as BPs are low-normal likely will need to wean aldactone dosing now that potassium has been stable will lower K supplement dose as well mag level wnl (6) Hypertension: Plan: Remains on complex regimen including lisinopril 40, aldactone 200, cardizem 240, and metoprolol 25 BID cut lisinopril dose to 20mg daily other meds may need adjustment as BPs are low-normal at times (7) UTI (urinary tract infection): Plan: patient received several doses of IV abx earlier this stay clinically resolved (8) Malignant melanoma of left lower leg: Plan: 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 Continues to follow with [facility]. 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 (9) Anemia: Plan: s/p intermittent Fe infusions as outpatient as well as here Check Fe studies + folate in am B12 level earlier this year wnl H/H stable today No evidence of GI bleeding (10) Elevated troponin: Plan: likely myocardial demand ischemia No known underlying CAD; no ischemic symptoms Remains on aspirin and statin Echocardiogram with preserved left ventricular ejection fraction of 60 to 65% with no regional wall motion abnormalities (11) Glaucoma: Plan: Continue home eyedrops (12) Paroxysmal atrial fibrillation: Plan: Patient continues on anticoagulation with heparin drip. resume home Eliquis after EUS. Continue metoprolol and diltiazem. Examines NSR today. (13) Transient cerebral ischemia: Plan: History of TIA in the past. Continue with aspirin and statin along with anticoagulation for secondary prevention. (14) Hyperlipidemia: Plan: Continue atorvastatin. (15) GERD (gastroesophageal reflux disease): Plan: Continue PPI Has a known hiatal hernia (16) Hiatal hernia: Plan dispo post-d/c -- rehab - [facility] is first choice with SNF as backup choice daughter/ extensively updated today complexity of care - very high - multiple med adjustments, high risk med use (heparin drip), etc Admission and Anticipated Discharge Date Admission Date: May 09, 2022 Subjective patient's daughter & present during the visit she continues with mild, central abdominal discomfort - no worse than prior, and the same pain she has had all along diarrhea had improved yesterday, but then had 2 liquid stools this am stool is foul-smelling no mucous? no gross blood no nausea/emesis we discussed that in addition to the concern for ischemia causing the colit is/diarrhea that her Keytruda could cause colitis other possible etiologies for diarrhea - pancreatic insufficiency given the pancreatic mass? Review of Systems Review of Systems: gen - no fevers, tolerating diet cv - no cp, no orthopnea pulm - no dyspnea GI - no vomiting, no BRBPR Physical Exam Physical Exam: gen - NAD, very pleasant mouth - MMM neck - no JVD heart - RRR, s1 s2 lungs - CTA b/l abd - minimal abdominal discomfort central abdomen, BS+, slightly distended, no HSM, no peritoneal signs ext - no edema, pulses 2+ b/l skin - scar left weir; no rash psych - a/o x 3 Results & Data Results & Data ([facility]) Vital Signs (Past 12 Hours) Vital Signs Temp Pulse Resp BP Pulse Ox O2 Del Method 05/24/22 15:35 36.9 C 67 16 103/66 97 Room Air Laboratory Results Laboratory Results - last 24 hr 05/24/22 05/24/22 05/24/22 08:22 08:26 10:40 APTT 44.7 H PTT Ratio 1.6 Sodium 136 Potassium 4.2 Chloride 104 Carbon Dioxide 24 Anion Gap 8 BUN 12 Creatinine 0.68 Est Cr Clr Drug Dosing 42.0 Est GFR ( Amer) 93.1 Est GFR (Non-Af Amer) 80.3 BUN/Creatinine Ratio 17.6 Glucose 89 Calcium 8.8 Magnesium 1.8 Stl C. diff Tox B Gene Negative Cdiff Gene 05/24/22 15:16 APTT 45.1 H* PTT Ratio 1.6 Sodium Potassium Chloride Carbon Dioxide Anion Gap BUN Creatinine Est Cr Clr Drug Dosing Est GFR ( Amer) Est GFR (Non-Af Amer) BUN/Creatinine Ratio Glucose Calcium Magnesium Stl C. diff Tox B Gene PG Care Time/CCT Total # of Minutes Spent Total Time Spent with Patient: Total time spent is greater than 50% in coordination of care (as documented) at patient's floor/unit and/or counseling patient: Coding Level of Care Code 01676 SUB INP/OBS CARE 3/50MIN Diagnoses Diarrhea R19.7 Superior mesenteric vein thrombosis K55.069 Pancreatic mass K86.89 Ischemic colitis K55.9 Hypokalemia E87.6 Hypertension I10 UTI (urinary tract infection) N39.0 Malignant melanoma of left lower leg C43.72 Anemia D64.9 Elevated troponin R77.8 Glaucoma H40.9 Paroxysmal atrial fibrillation I48.0 Transient cerebral ischemia G45.9 Hyperlipidemia E78.5 GERD (gastroesophageal reflux disease) K21.9 Hiatal hernia K44.9
[2022-05-24] MEDS: NEVANAC OPR SCH (20:01)
[2022-05-24] MEDS: ATORVASTATIN 10 MG TAB PO SCH (20:02)
[2022-05-24 23:24] LABS: Partial Thromboplastin Ratio 1.9
[2022-05-24 23:25] LABS: Partial Thromboplastin Time 51.8 Seconds (21.0-31.0)
[2022-05-25 06:21] LABS: Partial Thromboplastin Ratio 1.9
[2022-05-25 06:26] LABS: Ferritin 1170.6 ng/ml (8-388)
[2022-05-25 06:28] LABS: BUN Creatinine Ratio 19.1 (10-20); Calcium 8.4 mg/dl (8.5-10.1); Est GFR (African American) 93.1 ml/min; Est GFR (Non-African American) 80.3 ml/min; Potassium 4.1 mmol/L (3.5-5.1)
[2022-05-25 06:45] LABS: Partial Thromboplastin Time 53.3 Seconds (21.0-31.0)
[2022-05-25] MEDS: LIDOCAINE 5% 1 PATCH TD SCH (08:33)
[2022-05-25] MEDS: PANTOprazole 40 MG TAB PO SCH ×2 (08:36→20:06)
[2022-05-25] MEDS: dilTIAZem HCL 240 MG CAPCR PO SCH (08:37)
[2022-05-25] MEDS: ASPIRIN 81 MG ECTAB PO SCH (08:37)
[2022-05-25] MEDS: BIMATOPROST 0.01% OP SOLN 2.5 ML BTL OP SCH ×2 (08:38→09:08)
[2022-05-25] MEDS: SPIRONOLACTONE 100 MG TAB PO SCH (08:38)
[2022-05-25] MEDS: lisinopril 20 MG TAB PO SCH (08:38)
[2022-05-25] MEDS: METOPROLOL TARTRATE 25 MG TAB PO SCH ×2 (08:38→20:06)
[2022-05-25] MEDS: DORZOLAMIDE/TIMOLOL 22.3/6.8MG/ML 10 ML BTL OP SCH ×2 (08:39→20:06)
[2022-05-25] MEDS: FLUTICASONE/VILANTEROL 100/25MCG 14 PUFFS/INHALER INH SCH (09:08)
[2022-05-25] MEDS: COLESTIPOL HCL 1 GM TAB PO SCH ×2 (10:08→21:27)
[2022-05-25] MEDS: LACTATED RINGER'S 1,000 ML IV SCH (15:16)
[2022-05-25 17:33] LABS: Appearance Urine Clear (Clear); Bacteria Urine Automated Negative (Negative); Bilirubin Urine Negative (Negative); Blood Urine Negative (Negative); Cast Urine Automated 0 /lpf (0-5); Color Urine Yellow; Epithelial Cell Urine Auto >30 /lpf (0-5); Glucose Urine UA Negative (Negative); Ketones Urine Negative (Negative); Leukocyte Esterase Urine 1+ (Negative); Nitrite Urine Negative (Negative); Protein Urine Negative (Negative); RBC Urine Automated 0-4 /hpf (0-4); Specific Gravity Urine 1.008 (1.000-1.030); Urobilinogen Urine Negative (Negative); pH Urine 7.5 (4.5-7.5)
[2022-05-25] MEDS: NEVANAC OPR SCH (20:03)
[2022-05-25] MEDS: ATORVASTATIN 10 MG TAB PO SCH (20:05)
--- NOTE | 2022-05-25 20:26 | Hospitalist Progress Note ---
Date of Service May 25, 2022 Assessment & Plan (1) Diarrhea: Plan: [facility] has been following. s/p flex sig earlier this stay. Grossly the transverse colon looked like ischemic bowel per GI. She has had ongoing diarrhea - but improved with colestipol 1gm BID. Repeat c diff negative. Can use loperamide prn in addition to standing colestipol. If diarrhea is refractory could consider trial of creon. Of note - Keytruda is associated with colitis as well. Keytruda has been used for her melanoma. However, at this point, diarrhea/colitis likely ischemic in origin. 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 Remains on heparin drip. SMA was not affected based on last imaging study. SMV thrombosis can cause diarrhea. Exact etiology is unknown, but some sources state it can cause a secretory diarrhea due to ion channel disruption. (3) Pancreatic mass: Plan: uncinate process. EUS with biopsy by [facility] this week - need to clarify if this will be here at [facility] or [facility] - and which date. (4) Ischemic colitis: Plan: Evidence of ischemic colitis on colonoscopy performed on 05/15/22. Received course of broad-spectrum abx earlier this stay - now discontinued. Change diet to low fiber. Cont colestipol + loperamide prn. NO gross blood. NO peritonitis on exam. 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 (5) Hypokalemia: Plan: resolved for several days during this stay she was started on lisinopril + aldactone + K supplements these were titrated to large doses - 40mg and 200mg, respectively, along with 40meq BID of KCL cut lisinopril dose in 1/2 to 20mg daily as BPs are low-normal K supplements on hold. starting tomorrow am reduce aldactone to 100mg. 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 Continues to follow with [place] [facility]/onc. 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 (9) Anemia: Plan: s/p intermittent Fe infusions as outpatient as well as here Ferritin >1000 (acute phase); transferrin sat - <20% -- but hold off on additional Fe at this time Folate wnl B12 level earlier this year wnl H/H stable No evidence of GI bleeding (10) Elevated troponin: Plan: likely myocardial demand ischemia No known underlying CAD; no ischemic symptoms Remains on aspirin and statin Echocardiogram with preserved left ventricular ejection fraction of 60 to 65% with no regional wall motion abnormalities (11) Glaucoma: Plan: Continue home eyedrops (12) Paroxysmal atrial fibrillation: Plan: Patient continues on anticoagulation with heparin drip. resume home Eliquis after EUS. Continue metoprolol and diltiazem. Examines NSR today. (13) Transient cerebral ischemia: Plan: History of TIA in the past. Continue with aspirin and statin along with anticoagulation for secondary prevention. (14) Hyperlipidemia: Plan: Continue atorvastatin. (15) GERD (gastroesophageal reflux disease): Plan: Continue PPI Has a known hiatal hernia (16) Hiatal hernia: Plan: Cont PPI Plan dispo post-d/c -- rehab - [facility] is first choice with SNF as backup choice daughter/ extensively updated today and yesterday at bedside Admission and Anticipated Discharge Date Admission Date: May 09, 2022 Subjective pt's only new complaint - urinary frequency no dysuria some urgency voiding about every hour on the hour diarrhea improved no abd pain today no nausea/emesis tolerating diet Review of Systems Review of Systems: CV - no chest pain pulm - no dyspnea, no cough GI - no blood per rectum; no nausea/emesis - per subjective portion of this note Physical Exam Physical Exam: gen - NAD, very pleasant, looks great mouth - MMM neck - no JVD heart - RRR, s1 s2 lungs - CTA b/l abd - soft, BS+, slightly distended, no HSM, no peritoneal signs, nontender ext - no edema, pulses 2+ b/l skin - scar left weir; no rash psych - a/o x 3 Results & Data Results & Data ([facility]) Vital Signs (Past 12 Hours) Vital Signs Temp Pulse Resp BP BP Pulse Ox Pulse Ox 05/25/22 20:00 37.3 C 88 16 136/78 94 05/25/22 20:00 94 05/25/22 15:37 37.1 C 70 16 119/64 95 O2 Del Method O2 Del Method 05/25/22 20:00 Room Air 05/25/22 20:00 Room Air 05/25/22 15:37 Room Air Laboratory Results Laboratory Results - last 24 hr 05/24/22 05/25/22 05/25/22 22:41 05:18 05:18 APTT 51.8 H* 53.3 H* PTT Ratio 1.9 1.9 Sodium 134 L Potassium 4.1 Chloride 104 Carbon Dioxide 23 Anion Gap 7 BUN 13 Creatinine 0.68 Est Cr Clr Drug Dosing 42.0 Est GFR ( Amer) 93.1 Est GFR (Non-Af Amer) 80.3 BUN/Creatinine Ratio 19.1 Glucose 102 H Calcium 8.4 L Iron 25 L TIBC 197 L Unsaturated IBC 172 Transferrin % Sat 13 L Ferritin 1170.6 H Folate Urine Color Urine Appearance Urine pH Ur Specific [place] Urine Protein Urine Glucose (UA) Urine Ketones Urine Blood Urine Nitrite Urine Bilirubin Urine Urobilinogen Ur Leukocyte Esterase Urine WBC (Auto) Urine RBC (Auto) U Hyaline Cast (Auto) U Epithel Cells (Auto) Urine Bacteria (Auto) 05/25/22 05/25/22 05:18 17:20 APTT PTT Ratio Sodium Potassium Chloride Carbon Dioxide Anion Gap BUN Creatinine Est Cr Clr Drug Dosing Est GFR ( Amer) Est GFR (Non-Af Amer) BUN/Creatinine Ratio Glucose Calcium Iron TIBC Unsaturated IBC Transferrin % Sat Ferritin Folate 13.03 Urine Color Yellow Urine Appearance Clear Urine pH 7.5 Ur Specific [place] 1.008 Urine Protein Negative Urine Glucose (UA) Negative Urine Ketones Negative Urine Blood Negative Urine Nitrite Negative Urine Bilirubin Negative Urine Urobilinogen Negative Ur Leukocyte Esterase 1+ H Urine WBC (Auto) 1-5 Urine RBC (Auto) 0-4 U Hyaline Cast (Auto) 0 U Epithel Cells (Auto) >30 H Urine Bacteria (Auto) Negative Diagnostic Findings PVR - <100cc on bladder scan PG Care Time/CCT Total # of Minutes Spent Total Time Spent with Patient: Total time spent is greater than 50% in coordination of care (as documented) at patient's floor/unit and/or counseling patient: Coding Level of Care Code 49326 SUB INP/OBS CARE 2/35MIN Diagnoses Diarrhea R19.7 Superior mesenteric vein thrombosis K55.069 Pancreatic mass K86.89 Ischemic colitis K55.9 Hypokalemia E87.6 Hypertension I10 UTI (urinary tract infection) N39.0 Malignant melanoma of left lower leg C43.72 Anemia D64.9 Elevated troponin R77.8 Glaucoma H40.9 Paroxysmal atrial fibrillation I48.0 Transient cerebral ischemia G45.9 Hyperlipidemia E78.5 GERD (gastroesophageal reflux disease) K21.9 Hiatal hernia K44.9
[2022-05-26] MEDS: HEPARIN SODIUM/DEXTROSE 25,000 UNITS/500 ML BAG IV SCH ×2 (01:15→08:26)
[2022-05-26 07:32] LABS: Basophils # (auto) 0.03 K/uL (0-0.2); Basophils % (auto) 0.4 %; Eosinophils # (auto) 0.03 K/uL (0-0.50); Eosinophils % (auto) 0.4 %; Hematocrit (blood only) 27.5 % (34.1-44.9); Hemoglobin 8.9 g/dl (12.0-16.0); Immature Granulocytes # (auto) 0.03 K/uL (0.00-0.02); Immature Granulocytes % (auto) 0.4 %; Lymphocytes # (auto) 1.88 K/uL (1.2-3.4); Lymphocytes % (auto) 25.3 %; Mean Corpuscular Hemoglobin 25.4 pg (25.0-34.0); Mean Corpuscular Hgb Conc 32.4 g/dL (32.0-36.0); Mean Corpuscular Volume 78.3 fL (80.0-100.0); Mean Platelet Volume 9.1 fL (9.4-12.3); Monocytes # (auto) 0.56 K/uL (0.24-0.82); Monocytes % (auto) 7.5 %; Platelet Count 330 K/uL (130-400); RDW Coefficient of Variation 23.2 % (11.5-14.5); Red Blood Count 3.51 M/uL (3.93-5.22); White Blood Count 7.43 K/ul (4.8-10.8)
[2022-05-26 07:50] LABS: Calcium 8.5 mg/dl (8.5-10.1); Creatinine Clr Calc Pharmacy 38.6 ml/min; Est GFR (African American) 86.2 ml/min; Est GFR (Non-African American) 74.4 ml/min; Potassium 3.8 mmol/L (3.5-5.1)
[2022-05-26 08:02] LABS: Partial Thromboplastin Ratio 1.8
[2022-05-26 08:22] LABS: Anisocytosis Present; Polychromasia 1+
[2022-05-26 08:23] LABS: Partial Thromboplastin Time 49.3 Seconds (21.0-31.0)
[2022-05-26] MEDS: ASPIRIN 81 MG ECTAB PO SCH (09:21)
[2022-05-26] MEDS: lisinopril 20 MG TAB PO SCH (09:21)
[2022-05-26] MEDS: FLUTICASONE/VILANTEROL 100/25MCG 14 PUFFS/INHALER INH SCH (09:21)
[2022-05-26] MEDS: SPIRONOLACTONE 100 MG TAB PO SCH (09:21)
[2022-05-26] MEDS: METOPROLOL TARTRATE 25 MG TAB PO SCH ×2 (09:21→20:52)
[2022-05-26] MEDS: COLESTIPOL HCL 1 GM TAB PO SCH ×2 (09:21→22:39)
[2022-05-26] MEDS: PANTOprazole 40 MG TAB PO SCH ×2 (09:21→20:53)
[2022-05-26] MEDS: BIMATOPROST 0.01% OP SOLN 2.5 ML BTL OP SCH (09:22)
[2022-05-26] MEDS: dilTIAZem HCL 240 MG CAPCR PO SCH (09:22)
[2022-05-26] MEDS: DORZOLAMIDE/TIMOLOL 22.3/6.8MG/ML 10 ML BTL OP SCH ×2 (09:23→20:53)
[2022-05-26] MEDS: LIDOCAINE 5% 1 PATCH TD SCH (09:26)
--- NOTE | 2022-05-26 09:51 | Gastroenterology Progress Note ---
Date of Service May 26, 2022 Assessment & Plan (1) Hiatal hernia: (2) Pancreatic mass: (3) Colitis: Plan Pt is a 86 yo female w histories of melanoma, ischemic colitis, SMV stenosis/occlusion, pancreas mass. Most recent GI issue of diarrhea has resolved. Cdiff negative. Abd exam benign this AM. She is tolerating solid meals w/o n/v - Colestid 1g BID - Diet as tolerated - Currently scheduled for EUS on 05/28 (Dr. Mann Abreu) at [facility] - Pls recall GI prn Admission and Anticipated Discharge Date Admission Date: May 09, 2022 Supervising Physician Co-Signing Physician Notes I have personally seen and examined the patient with SARIAH Medina. Her note reflects my exam and findings. I agree with her impression and plan. Will take advantage of patient's admission and arrange an in patient EUS/FNA of concerning pancreatic lesion. Discussed with family at bedside as well. Arnaud Shafer M.D. Subjective Pt reports doing well, ate breakfast wo n/v, not having abd pain. Had solid stools yesterday. Review of Systems Review of Systems: All systems reviewed & are unremarkable except as noted in HPI & below Physical Exam Constitutional: WD/WN, vitals as above well groomed, cooperative and comfortable Eyes: PERRL, conjunctivae normal, anicteric sclerae ENMT: external ear and nose normal, oropharynx normal Respiratory: normal respiratory effort, lungs clear to auscultation Cardiovascular: RRR, no murmur, no edema Gastrointestinal (Abdomen): normal bowel sounds, soft, nontender, no hepatosplenomegaly Skin: no rashes, warm and dry no jaundice Psychiatric: A+Ox3, euthymic affect Lymphatic: no lymphedema Results & Data ([facility]) Vital Signs (Past 12 Hours) Vital Signs Temp Pulse Resp BP Pulse Ox O2 Del Method 05/26/22 07:46 36.3 C L 92 H 18 112/70 94 Room Air
[2022-05-26] MEDS: NEVANAC OPR SCH (20:36)
[2022-05-26] MEDS: ATORVASTATIN 10 MG TAB PO SCH (20:53)
--- NOTE | 2022-05-26 20:57 | Hospitalist Progress Note ---
Date of Service May 26, 2022 Assessment & Plan (1) Diarrhea: Plan: Improved/resolved. s/p flex sig 05/16/[address] Hoffman -- grossly the transverse colon looked like ischemic bowel per GI. She has had ongoing diarrhea - but improved with colestipol 1gm BID. Repeat c diff negative. Can use loperamide prn in addition to standing colestipol. If diarrhea returns could consider trial of creon given her pancreatic mass. Of note - Keytruda is associated with colitis as well. Keytruda has been used for her melanoma. However, at this point, diarrhea/colitis likely ischemic in origin. 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 Remains on heparin drip. SMA was not affected based on last imaging study. SMV thrombosis can cause diarrhea. Exact pathophysiology is unknown, but some sources state it can cause a secretory diarrhea due to ion channel disruption. (3) Pancreatic mass: Plan: uncinate process. EUS with biopsy by [facility] (Dr Abreu) on 05/28/22 at [facility]. (4) Ischemic colitis: Plan: Evidence of ischemic colitis on flex sig performed on 05/15/22. Received course of broad-spectrum abx earlier this stay - now discontinued. Cont low fiber diet. Cont colestipol + loperamide prn. NO gross blood. NO peritonitis on exam. 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 (5) Hypokalemia: Plan: resolved for several days during this stay she was started on lisinopril + aldactone + K supplements these were titrated to large doses - 40mg and 200mg, respectively, along with 40meq BID of KCL cut lisinopril dose in 1/2 to 20mg daily as BPs are low-normal K supplements on hold. reduced aldactone to 100mg from 200mg. would continue to wean off these 2 agents. repeat BMP every 48 hours. 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 Continues to follow with [place] [facility]/on[facility]. 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 (9) Anemia: Plan: s/p intermittent Fe infusions as outpatient as well as here Ferritin >1000 (acute phase); transferrin sat - <20% -- but hold off on additional Fe at this time Folate wnl B12 level earlier this year wnl H/H stable No evidence of GI bleeding (10) Elevated troponin: Plan: likely myocardial demand ischemia No known underlying CAD; no ischemic symptoms Remains on aspirin and statin Echocardiogram with preserved left ventricular ejection fraction of 60 to 65% with no regional wall motion abnormalities (11) Glaucoma: Plan: Continue home eyedrops (12) Paroxysmal atrial fibrillation: Plan: Patient continues on anticoagulation with heparin drip. resume home Eliquis after EUS. Continue metoprolol and diltiazem. Examines NSR today. (13) Transient cerebral ischemia: Plan: History of TIA in the past. Continue with aspirin and statin along with anticoagulation for secondary prevention. (14) Hyperlipidemia: Plan: Continue atorvastatin. (15) GERD (gastroesophageal reflux disease): Plan: Continue PPI Has a known hiatal hernia (16) Hiatal hernia: Plan: Cont PPI Plan dispo post-d/c -- rehab - [facility] is first choice with SNF as backup choice daughter/ extensively updated yesterday at bedside Admission and Anticipated Discharge Date Admission Date: May 09, 2022 Subjective pt w/o any new complaints minimal abdominal discomfort no nausea/emesis diarrhea resolved - no loose stools today no new complaints Review of Systems Review of Systems: cv - no chest pain pulm - no dyspnea GI - no blood per rectum Physical Exam Physical Exam: gen - NAD, very pleasant, looks good mouth - MMM neck - no JVD heart - RRR, s1 s2 lungs - CTA b/l abd - soft, BS+, NT, ND, no HSM ext - no edema, pulses 2+ b/l psych - a/o x 3 Results & Data Results & Data ([facility]) Vital Signs (Past 12 Hours) Vital Signs Temp Pulse Pulse Resp BP BP Pulse Ox 05/26/22 20:43 94 H 109/68 94 05/26/22 20:37 37.2 C 92 H 18 99/63 L 92 05/26/22 14:04 36.8 C 76 18 104/65 94 05/26/22 11:38 36.6 C 84 18 111/74 96 O2 Del Method 05/26/22 20:43 Room Air 05/26/22 20:37 Room Air 05/26/22 14:04 Room Air 05/26/22 11:38 Room Air Laboratory Results Laboratory Results - last 24 hr 05/26/22 05/26/22 05/26/22 07:04 07:04 07:04 WBC 7.43 RBC 3.51 L Hgb 8.9 L Hct 27.5 L MCV 78.3 L MCH 25.4 MCHC 32.4 RDW Std Deviation 64.0 H RDW Coeff of [place] 23.2 H Plt Count 330 MPV 9.1 L Immature Gran % (Auto) 0.4 Neut % (Auto) 66.0 Lymph % (Auto) 25.3 [place] % (Auto) 7.5 Eos % (Auto) 0.4 Baso % (Auto) 0.4 Neut # (Auto) 4.90 Lymph # (Auto) 1.88 [place] # (Auto) 0.56 Eos # (Auto) 0.03 Baso # (Auto) 0.03 Immature Gran # (Auto) 0.03 H Polychromasia 1+ Anisocytosis Present APTT 49.3 H* PTT Ratio 1.8 Sodium 134 L Potassium 3.8 Chloride 103 Carbon Dioxide 24 Anion Gap 7 BUN 17 Creatinine 0.74 Est Cr Clr Drug Dosing 38.6 Est GFR ( Amer) 86.2 Est GFR (Non-Af Amer) 74.4 BUN/Creatinine Ratio 23.0 H Glucose 99 Calcium 8.5 PG Care Time/CCT Total # of Minutes Spent Total Time Spent with Patient: Total time spent is greater than 50% in coordination of care (as documented) at patient's floor/unit and/or counseling patient: Coding Level of Care Code 45488 SUB INP/OBS CARE MIN Diagnoses Diarrhea R19.7 Superior mesenteric vein thrombosis K55.069 Pancreatic mass K86.89 Ischemic colitis K55.9 Hypokalemia E87.6 Hypertension I10 UTI (urinary tract infection) N39.0 Malignant melanoma of left lower leg C43.72 Anemia D64.9 Elevated troponin R77.8 Glaucoma H40.9 Paroxysmal atrial fibrillation I48.0 Transient cerebral ischemia G45.9 Hyperlipidemia E78.5 GERD (gastroesophageal reflux disease) K21.9 Hiatal hernia K44.9
[2022-05-27 04:54] LABS: Partial Thromboplastin Ratio 1.7
[2022-05-27 04:56] LABS: Partial Thromboplastin Time 47.6 Seconds (21.0-31.0)
[2022-05-27] MEDS: FLUTICASONE/VILANTEROL 100/25MCG 14 PUFFS/INHALER INH SCH (09:00)
[2022-05-27] MEDS: PANTOprazole 40 MG TAB PO SCH ×2 (09:00→20:13)
[2022-05-27] MEDS: COLESTIPOL HCL 1 GM TAB PO SCH (09:00)
[2022-05-27] MEDS: dilTIAZem HCL 240 MG CAPCR PO SCH (09:01)
[2022-05-27] MEDS: lisinopril 20 MG TAB PO SCH (09:01)
[2022-05-27] MEDS: METOPROLOL TARTRATE 25 MG TAB PO SCH ×2 (09:01→20:12)
[2022-05-27] MEDS: SPIRONOLACTONE 100 MG TAB PO SCH (09:02)
[2022-05-27] MEDS: ASPIRIN 81 MG ECTAB PO SCH (09:02)
[2022-05-27] MEDS: LIDOCAINE 5% 1 PATCH TD SCH (09:03)
[2022-05-27] MEDS: DORZOLAMIDE/TIMOLOL 22.3/6.8MG/ML 10 ML BTL OP SCH ×2 (09:07→20:12)
--- NOTE | 2022-05-27 12:20 | Hospitalist Progress Note ---
Date of Service May 27, 2022 Assessment & Plan (1) Diarrhea: Plan: Improved/resolved. Now she has concerns about constipation s/p flex sig 05/16/[address] Hoffman -- grossly the transverse colon looked like ischemic bowel per GI. ongoing diarrhea improved with colestipol 1gm BID. Repeat c diff negative. Can use loperamide prn in addition to standing colestipol. If diarrhea returns could consider trial of creon given her pancreatic mass. Of note - Keytruda is associated with colitis as well. Keytruda has been used for her melanoma. However, at this point, diarrhea/colitis likely ischemic in origin. 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 Remains on heparin drip but now on hold for procedure tomorrow SMA was not affected based on last imaging study. SMV thrombosis can cause diarrhea. Exact pathophysiology is unknown, but some sources state it can cause a secretory diarrhea due to ion channel disruption. -plan to restart either Eliquis or heparin gtt after procedure when safe to do so -will d/w GI (3) Pancreatic mass: Plan: uncinate process. EUS with biopsy by [facility] (Dr Abreu) on 05/28/22 at [facility]. NPO after midnight tonight holding heparin and Eliquis having pain but not taking pain meds (4) Ischemic colitis: Plan: Evidence of ischemic colitis on flex sig performed on 05/15/22. Received course of broad-spectrum abx earlier this stay - now discontinued. Cont low fiber diet. Cont colestipol + loperamide prn. NO gross blood. NO peritonitis on exam. 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 (5) Hypokalemia: Plan: resolved during this stay she was started on lisinopril + aldactone + K supplements these were titrated to large doses - 40mg and 200mg, respectively, along with 40meq BID of KCL cut lisinopril dose in 1/2 to 20mg daily as BPs are low-normal K supplements on hold-will no discontinue reduced aldactone to 100mg from 200mg. would continue to wean off these 2 agents. repeat BMP tomorrow (6) Hypertension: Plan: Remains on complex regimen including lisinopril, aldactone, cardizem 240, and metoprolol 25 BID lisinopril dose reduced to 20mg daily reduced aldactone from 200mg to 100mg daily follow response cont to taper meds if needed (7) UTI (urinary tract infection): Plan: patient received several doses of IV abx earlier this stay clinically resolved, but then having urinary frequency again this was likely due to IV fluids repeat u/a largely nl bladder scan w/o retention frequency of urination improved after fluids were d/c (8) Malignant melanoma of left lower leg: Plan: 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 Continues to follow with [place] [facility]. 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 (9) Anemia: Plan: s/p intermittent Fe infusions as outpatient as well as here Ferritin >1000 (acute phase); transferrin sat - <20% -- but hold off on additional Fe at this time Folate wnl B12 level earlier this year wnl H/H stable No evidence of GI bleeding follow CBC in AM (10) Elevated troponin: Plan: likely myocardial demand ischemia No known underlying CAD; no ischemic symptoms Remains on aspirin and statin Echocardiogram with preserved left ventricular ejection fraction of 60 to 65% with no regional wall motion abnormalities (11) Glaucoma: Plan: Continue home eyedrops (12) Paroxysmal atrial fibrillation: Plan: Patient was on anticoagulation with heparin drip while holding ELiquis resume home Eliquis after EUS when ok with GI Continue metoprolol and diltiazem. Examines NSR today. (13) Transient cerebral ischemia: Plan: History of TIA in the past. Continue with aspirin and statin along with anticoagulation for secondary prevention. (14) Hyperlipidemia: Plan: Continue atorvastatin. (15) GERD (gastroesophageal reflux disease): Plan: Continue PPI Has a known large hiatal hernia (16) Hiatal hernia: Plan: Cont PPI Plan dispo post-d/c -- rehab - [facility] is first choice with SNF as backup choice. If doesn't qualify for auth through insurance, will plan to dc home with home health son/ updated at bedside today Admission and Anticipated Discharge Date Admission Date: May 09, 2022 Subjective Still has epigastric abd pain with sitting upright at a 90 degree angle. Otherw ise, is tolerating po. Was having diarrhea and now no BM in almost 2 days. Has questions about her procedure tomorrow. Review of Systems Review of Systems: All systems reviewed & are unremarkable except as noted in HPI & below Physical Exam Constitutional: WD/WN, vitals as above Eyes: + anicteric sclerae Neck: trachea midline, no thyromegaly Respiratory: normal respiratory effort, lungs clear to auscultation Chest (Breasts): Chest: normal inspection of chest Gastrointestinal (Abdomen): Inspection/Auscultation: abdomen normal to inspection and normal bowel sounds; abdomen not distended Percussion/Palpation: + abdomen tender (Diffusely tender but more so in RLQ and epigastric region) and abdomen soft; no guarding, abdomen not rigid, no hernia and no abdominal mass Musculoskeletal: Extremities: extremities normal to inspection; no cyanosis and no clubbing Skin: no rashes, warm and dry Neurologic: moves all extremities and awake; no focal motor deficits Psychiatric: A+Ox3, euthymic affect Lymphatic: no lymphedema Results & Data Results & Data ([facility]) Vital Signs (Past 12 Hours) Vital Signs Temp Pulse Resp BP Pulse Ox O2 Del Method 05/27/22 09:00 88 119/74 05/27/22 07:31 37.1 C 88 16 109/68 95 Room Air Laboratory Results 05/27/22 Range/Units 04:19 APTT 47.6 H* (21.0-31.0) Seconds PTT Ratio 1.7 PG Care Time/CCT Total # of Minutes Spent Total Time Spent with Patient: Total time spent is greater than 50% in coordination of care (as documented) at patient's floor/unit and/or counseling patient: Coding Level of Care Code 01505 SUB INP/OBS CARE 2/35MIN Diagnoses Diarrhea R19.7 Superior mesenteric vein thrombosis K55.069 Pancreatic mass K86.89 Ischemic colitis K55.9 Hypokalemia E87.6 Hypertension I10 UTI (urinary tract infection) N39.0 Malignant melanoma of left lower leg C43.72 Anemia D64.9 Elevated troponin R77.8 Glaucoma H40.9 Paroxysmal atrial fibrillation I48.0 Transient cerebral ischemia G45.9 Hyperlipidemia E78.5 GERD (gastroesophageal reflux disease) K21.9 Hiatal hernia K44.9
[2022-05-27] MEDS: NEVANAC OPR SCH (20:05)
[2022-05-27] MEDS ORDERED: ACETAMINOPHEN 500 MG TAB PO PRN (20:10)
[2022-05-27] MEDS: ATORVASTATIN 10 MG TAB PO SCH (20:12)
[2022-05-27] MEDS: BIMATOPROST 0.01% OP SOLN 2.5 ML BTL OP SCH (20:45)
[2022-05-28] MEDS ORDERED: HOLD ORDER: HEPARIN INFUSION ONE (08:00)
[2022-05-28 08:07] LABS: Basophils # (auto) 0.04 K/uL (0-0.2); Basophils % (auto) 0.6 %; Eosinophils # (auto) 0.09 K/uL (0-0.50); Eosinophils % (auto) 1.3 %; Hematocrit (blood only) 29.5 % (34.1-44.9); Hemoglobin 9.3 g/dl (12.0-16.0); Immature Granulocytes # (auto) 0.05 K/uL (0.00-0.02); Immature Granulocytes % (auto) 0.7 %; Lymphocytes # (auto) 2.01 K/uL (1.2-3.4); Mean Corpuscular Hemoglobin 25.3 pg (25.0-34.0); Mean Corpuscular Hgb Conc 31.5 g/dL (32.0-36.0); Mean Corpuscular Volume 80.2 fL (80.0-100.0); Mean Platelet Volume 9.1 fL (9.4-12.3); Monocytes # (auto) 0.64 K/uL (0.24-0.82); Monocytes % (auto) 9.6 %; Neutrophils # (auto) 3.87 K/uL (1.4-6.5); Neutrophils % (auto) 57.8 %; Platelet Count 327 K/uL (130-400); RDW Coefficient of Variation 23.2 % (11.5-14.5); RDW Standard Deviation 65.4 fL (36.4-46.3); Red Blood Count 3.68 M/uL (3.93-5.22)
[2022-05-28 08:30] LABS: BUN Creatinine Ratio 27.4 (10-20); Bilirubin,Total 0.4 mg/dl (0.2-1.0); Calcium 8.6 mg/dl (8.5-10.1); Creatinine Clr Calc Pharmacy 39.1 ml/min; Est GFR (African American) 87.7 ml/min; Est GFR (Non-African American) 75.6 ml/min; Potassium 3.7 mmol/L (3.5-5.1)
--- NOTE | 2022-05-28 09:03 | Gastroenterology Progress Note ---
Date of Service May 28, 2022 Assessment & Plan (1) Hiatal hernia: (2) Pancreatic mass: (3) Colitis: Plan: Pt is a 86 yo female w histories of melanoma, ischemic colitis, SMV stenosis/occlusion, pancreas mass. Most recent GI issue of diarrhea has resolved. Cdiff negative. Abd exam benign this AM. She is n.p.o. for scheduled EUS for pancreatic mass FNA later today - Colestid 1g daily; may DC if no longer having diarrhea - Diet as tolerated - NPO for EUS by Dr. Mann Abreu today - Further GI recs after EUS is completed Admission and Anticipated Discharge Date Admission Date: May 09, 2022 Supervising Physician Co-Signing Physician Notes I saw and evaluated the patient. We were consulted for evaluation of an abnormal CT scan in the setting of prior melanoma. We are planning to do upper endoscopy with endoscopic ultrasound to this afternoon. I did discuss risks and benefits of the procedure with the patient to include bleeding infection perforation pain, insufficient cellularity and inability to perform the examination due to her large partially intrathoracic stomach. Plan upper endoscopy with endoscopic ultrasound today Subjective Patient reports that she feels well, had 2 bowel movements this morning that are solid, denies any rectal bleeding or dark tarry stools. She denies any chest pain, shortness of breath, abdominal pain, nausea or vomiting. Had been n.p.o. after midnight for scheduled EUS. Review of Systems Review of Systems: All systems reviewed & are unremarkable except as noted in HPI & below Physical Exam Constitutional: WD/WN, vitals as above well groomed, cooperative and comfortable Eyes: PERRL, conjunctivae normal, anicteric sclerae ENMT: external ear and nose normal, oropharynx normal Respiratory: normal respiratory effort, lungs clear to auscultation Cardiovascular: RRR, no murmur, no edema Gastrointestinal (Abdomen): normal bowel sounds, soft, nontender, no hepatosplenomegaly Skin: no rashes, warm and dry no jaundice Psychiatric: A+Ox3, euthymic affect Lymphatic: no lymphedema Results & Data ([facility]) Vital Signs (Past 12 Hours) Vital Signs Temp Pulse Resp BP Pulse Ox O2 Del Method 05/28/22 08:05 36.9 C 78 18 114/71 96 Room Air 05/27/22 21:29 37.1 C
[2022-05-28 09:15] LABS: Anisocytosis Present; Rouleaux 1+
[2022-05-28] MEDS: LIDOCAINE 5% 1 PATCH TD SCH (09:55)
--- NOTE | 2022-05-28 10:39 | Hospitalist Progress Note ---
Date of Service May 28, 2022 Assessment & Plan (1) Pancreatic mass: Plan: EBUS biopsy is scheduled for today. As per previous consultation we will need to distinguish between metastasis from her melanoma versus a separate pancreatic malignancy. Plan Anticipate definitive biopsy today and otherwise it sounds like she is stabilizing. She is currently scheduled in my outpatient clinic at 4 PM on Thursday, June 03. If she is stable enough for discharge over the weekend can follow her then and should have path available We can follow-up on her iron deficiency at that time, follow-up of diarrhea which is probably more due to ischemic bowel than the previous Keytruda but if this is metastatic melanoma we will have to reassess treatment options. As per original consultation it is not clear that she "failed" apixaban and she could return to that versus continuing on outpatient enoxaparin for now at least until we have had a chance to more thoroughly review her long-term options. I would tend to favor the latter (enoxaparin 1 mg/kg subcutaneously twice daily) at least until we have our follow-up visit next week unless she strongly feels otherwise in which case apixaban would be acceptable though with the admonition of possible future clotting issues - indeed with either agent she needs to be made aware of ongoing risk for both new clotting and bleeding. I will be away after tomorrow until next Thursday so will "sign off" but coverage is available if acute questions arise in the interim. If she has not been discharged by next week, please contact me and I will be happy to follow-up with her as an inpatient. Admission and Anticipated Discharge Date Admission Date: May 09, 2022 Subjective Scheduled for EUS with potential sampling of pancreatic mass later today Results & Data Results & Data ([facility]) Vital Signs (Past 12 Hours) Vital Signs Temp Pulse Resp BP Pulse Ox O2 Del Method 05/28/22 08:05 36.9 C 78 18 114/71 96 Room Air PG Care Time/CCT Total # of Minutes Spent Total Time Spent with Patient: Total time spent is greater than 50% in coordination of care (as documented) at patient's floor/unit and/or counseling patient: Coding Level of Care Code None Diagnoses Pancreatic mass K86.89
[2022-05-28] MEDS: ASPIRIN 81 MG ECTAB PO SCH (12:24)
[2022-05-28] MEDS ORDERED: fentaNYL citrate 100 MCG/2 ML VIAL ONE (13:16)
[2022-05-28] MEDS ORDERED: CIPROFLOXACIN 400MG / 200ML D5W IV ONE (13:33)
[2022-05-28] MEDS ORDERED: ePHEDrine sulfate 50 MG/ML AMP IV PRN (13:40)
[2022-05-28] MEDS ORDERED: fentaNYL citrate 100 MCG/2 ML VIAL IV PRN (13:40)
[2022-05-28] MEDS ORDERED: ATROPINE SULFATE 0.1 MG/ML 10ML SYR IV PRN (13:40)
[2022-05-28] MEDS ORDERED: ONDANSETRON INJ 2 MG/ML 2 ML VIAL IV PRN (13:40)
--- NOTE | 2022-05-28 13:40 | History & Physical Bridge Note ---
Date of Service May 28, 2022 History & Physical Bridge Note I have examined the patient, reviewed the History & Physical and in the interval since the performance of the History & Physical I have noted the following changes of clinical significance: no changes noted
--- NOTE | 2022-05-28 13:41 | Anesthesiology Consultation ---
Date of Service May 28, 2022 Assessment & Plan ASA ASA4 Proposed Anesthesia Anesthesia Type: General Risk / Benefits Reviewed With: PT / POA / Parent / Guardian, Accepts Plan and Informed Consent Obtained History Surgery Operation Date: 05/14/22 14:00 Proposed Procedures p Flexible Sigmoidoscopy Dr Yasmin Hoffman MD Operation Date: 05/15/22 17:30 Proposed Procedures p Flexible Sigmoidoscopy Dr Yasmin Hoffman MD Operation Date: 05/16/22 07:00 Proposed Procedures p Endoscopic Ultrasonography Upper - Praveen Fletcher MD Operation Date: 05/20/22 07:00 Proposed Procedures p Endoscopic Ultrasonography [place] - Praveen Fletcher MD Operation Date: 05/28/22 14:00 Proposed Procedures p Endoscopic Ultrasonography Upper - Mann Abreu DO Height/Weight Height: 4 ft 11 in Weight: 45.9 kg Allergies Allergy/AdvReac Type Severity Reaction Status Date / Time nivolumab [From Opdivo] Allergy Severe Unknown Verified 05/15/22 12:25 shellfish derived Allergy Severe "violently Verified 05/15/22 12:25 sick" after eating lobster shrimp Allergy Intermediate VIOLENTLY Verified 05/15/22 12:25 SICK pseudoephedrine AdvReac Severe PASSED Verified 05/15/22 12:25 OUT, SPACEY iodine AdvReac Intermediate SICK TO Verified 05/15/22 12:25 STOMACH Penicillins AdvReac Intermediate SICK TO Verified 05/15/22 12:25 STOMACH propoxyphene AdvReac Intermediate HYPER Verified 05/15/22 12:25 tetanus toxoid, adsorbed AdvReac Intermediate "OUT OF Verified 05/15/22 12:25 ORBIT" Medications Home Medications Medication Instructions Recorded Confirmed Last Taken aspirin 81 mg tablet,delayed 81 mg PO DAILY #90 tabs 12/14/18 05/09/22 05/08/22 release (Veena Low Dose Aspirin) biotin 1 mg tablet 1 mg PO DAILY 12/27/18 05/09/22 05/08/22 cholecalciferol (vitamin D3) 25 1,000 units PO DAILY 12/27/18 05/09/22 05/08/22 mcg (1,000 unit) tablet clindamycin HCl 150 mg capsule 150 mg PO DIRECTED PRN 1 HR 12/27/18 05/09/22 Unknown PRIOR TO DENTAL PROCEDURES docusate sodium 100 mg capsule 100 mg PO HS 12/27/18 05/09/22 05/08/22 triamcinolone acetonide 0.1 % 1 appln topical DIRECTED 11/04/19 05/09/22 05/08/22 topical cream bimatoprost 0.01 % eye drops 1 drp ophthalmic (eye) DAILY 02/11/21 05/09/22 05/08/22 (Lumigan) dorzolamide 22.3 mg-timolol 6.8 1 drp OPL BID 02/11/21 05/09/22 05/08/22 mg/mL eye drops (Cosopt) diltiazem HCl 120 mg 120 mg PO DAILY #90 caps 06/26/21 05/09/22 05/08/22 capsule,extended release 24 hr, controlled metoprolol tartrate 25 mg tablet 25 mg PO BID #180 tabs 07/08/21 05/09/2204/18 potassium chloride 10 mEq 10 meq PO DAILY #90 caps 07/26/21 05/09/22 05/08/22 capsule,extended release diclofenac sodium 1 % topical gel 2 g topical QID 08/15/21 05/09/22 05/08/22 (Arthritis Pain (diclofenac)) nepafenac 0.1 % eye 1 drp OPB DAILY 08/15/21 05/09/22 05/08/22 drops,suspension (Nevanac) omeprazole 20 mg capsule,delayed 20 mg PO DAILY #90 caps 01/10/22 05/09/22 05/08/22 release apixaban 2.5 mg tablet 2.5 mg PO BID 01/14/22 05/09/22 05/08/22 fluticasone furoate 100 1 inh inhalation DAILY #60 ea 01/21/22 05/09/22 05/08/22 mcg-vilanterol 25 mcg/dose inhalation powder (Breo Ellipta) Iron Infusion 0 dose IV DIRECTED PRN 05/09/22 05/09/22 Unknown EXHAUSTION acetaminophen 650 mg 650 mg PO TID 05/09/22 05/09/22 05/08/22 tablet,extended release aluminum hydrox-magnesium carb 160 1 tab PO HS 05/09/22 05/09/22 05/08/22 mg-105 mg chewable tablet atorvastatin 10 mg tablet 10 mg PO HS 05/09/22 05/09/22 05/08/22 diphenhydramine HCl 25 mg capsule 25 mg PO DIRECTED PRN 1 HR 05/09/22 05/09/22 Unknown (Benadryl) PRIOR TO CT SCAN food supplemt, lactose-reduced 1 ea PO DAILY 05/09/22 05/09/22 05/08/22 pembrolizumab 25 mg/mL intravenous 0 mg IV .Q3WK 05/09/22 05/09/22 Unknown solution (Keytruda) prednisone 50 mg tablet 150 mg PO DIRECTED PRN 1 HR 05/09/22 05/09/[address]AN Active Medications Generic Name Dose Route Start Last Admin Trade Name Freq PRN Reason Stop Dose Admin Acetaminophen 1,000 mg 05/27/22 20:10 05/27/22 20:21 Acetaminophen 500 Mg Tab PO 06/26/22 20:14 1,000 mg Q8H PRN Administration pain or fever Apixaban 2.5 mg 05/09/22 21:00 05/10/22 09:46 Apixaban 2.5 Mg Tab PO 06/08/22 20:59 2.5 mg BID ANABELL Administration Aspirin 81 mg 05/10/22 09:00 05/28/22 12:24 Aspirin 81 Mg Ectab PO 06/09/22 08:59 Not Given DAILY ANABELL Atorvastatin Calcium 10 mg 05/09/22 21:00 05/27/22 20:12 Atorvastatin 10 Mg Tab PO 06/08/22 20:59 10 mg QPM ANABELL Administration Bimatoprost 1 drops 05/10/22 09:00 05/27/22 20:45 Bimatoprost 0.01% Op Soln 2.5 Ml Btl OP 06/09/22 08:59 1 drops DAILY ANABELL Administration Diltiazem HCl 240 mg 05/19/22 09:00 05/27/22 09:01 Diltiazem Hcl 240 Mg Capcr PO 06/18/22 08:59 240 mg DAILY ANABELL Administration Dorzolamide/Timolol 1 drops 05/09/22 21:00 05/27/22 20:12 Dorzolamide/Timolol 22.3/6.8mg/Ml 10 Ml Btl OP 06/08/22 20:59 1 drops BID ANABELL Administration Fluticasone/Vilanterol 1 puffs 05/10/22 09:00 05/27/22 09:00 Fluticasone/Vilanterol 100/25mcg 14 Puffs/Inhaler INH 06/09/22 08:59 1 puffs DAILY ANABELL Administration Lidocaine 1 patch 05/19/22 18:20 05/28/22 09:55 Lidocaine 5% 1 Patch TD 06/18/22 18:19 Not Given QAM ANABELL Lisinopril 20 mg 05/25/22 09:00 05/27/22 09:01 Lisinopril 20 Mg Tab PO 06/24/22 08:59 20 mg QAM ANABELL Administration Loperamide HCl 2 mg 05/23/22 09:15 05/24/22 16:17 Loperamide Hcl 2 Mg Cap PO 06/22/22 09:14 2 mg QID PRN Administration Diarrhea Metoprolol Tartrate 25 mg 05/09/22 21:00 05/27/22 20:12 Metoprolol Tartrate 25 Mg Tab PO 06/08/22 20:59 25 mg BID ANABELL Administration Miscellaneous 1 each 05/19/22 21:00 05/27/22 20:13 Remove Lidoderm Patch N/A 06/18/22 20:59 Not Given DAILY@2100 ANABELL Nevanac: Non- 1 each 05/18/22 21:00 05/27/22 20:05 Formulary Patient's OPR 06/17/22 20:59 1 drops Own Med HS ANABELL Administration Pantoprazole Sodium 40 mg 05/14/22 21:00 05/27/22 20:13 Pantoprazole 40 Mg Tab PO 06/13/22 20:59 40 mg BID ANABELL Administration Protocol Spironolactone 100 mg 05/26/22 09:00 05/27/22 09:02 Spironolactone 100 Mg Tab PO 06/25/22 08:59 100 mg QAM ANABELL Administration NPO Date Last Intake of Fluids: 05/27/22 Time Last Intake of Fluids: 20:30 Date Last Intake of Solids: 05/27/22 Time Last Intake of Solids: 20:30 Last Intake of Solids Comment: pt reports pureed food 05/13/22 Past Medical History Medical History Atrial fibrillation with rapid ventricular response Bigeminal rhythm Glaucoma Melanoma of lower leg Migraine Pancreatic mass Plantar fasciitis of right foot Superior mesenteric artery stenosis Tinnitus Exercise / Class Metabolic Activity II 4-5 Yardwork/Stairs/Walk up hill Past Family History Family History Mother Breast cancer Brother Cancer Father Congestive heart failure Myocardial infarction Denies family history of Ovarian cancer Prostate cancer Colorectal cancer Past Surgical History Surgical History History of back surgery History of melanoma excision History of neck surgery History of total hip replacement S/P cataract surgery S/P correction of deviated nasal septum S/P dilation and curettage S/P laser trabeculoplasty of eye Anterior chamber S/P tonsillectomy Past Anesthesia History No Hx of Anesthesia Complications and No Family Hx of Anesthesia Complications History of PONV No Hx of PONV and No Hx of Motion Sickness Social History Smoking Status: Former smoker tobacco type: cigarettes Do You Dip or Chew Tobacco: No Hx Alcohol Use: No Hx Substance Use: No Review of Systems denies fever/cough/ colds/ chest pain/ SOB/ LICO denies LICO Physical Exam Vital Signs Last Vital Signs Temp 36.9 C 05/28/22 13:28 Pulse 89 05/28/22 13:28 Resp 14 05/28/22 13:28 BP 123/82 05/28/22 13:28 Pulse Ox 95 05/28/22 13:28 O2 Del Method 05/28/22 13:28 ENMT Mouth: no TMJ abnormality and no dentition abnormality Thyromental Distance: > or= 3.5 Finger Breadths Mallampati Class: II Neck neck extension not limited Respiratory normal respiratory effort; no respiratory distress Auscultation: lungs clear to auscultation bilaterally Cardiovascular Rate/Rhythm: regular rate and regular rhythm Neurologic moves all extremities Psychiatric Orientation: alert and oriented x 3 Testing Laboratory Results 05/28/22 07:42 05/28/22 07:43 PT 13.1 Seconds (9.0-12.0) H 05/16/22 18:44 INR 1.2 (0.9-1.1) H 05/16/22 18:44 APTT 47.6 Seconds (21.0-31.0) H* 05/27/22 04:19 Urine Color Yellow 05/25/22 17:20 Urine Appearance Clear (Clear) 05/25/22 17:20 Urine pH 7.5 (4.5-7.5) 05/25/22 17:20 Ur Specific [place] 1.008 (1.000-1.030) 05/25/22 17:20 Urine Protein Negative (Negative) 05/25/22 17:20 Urine Glucose (UA) Negative (Negative) 05/25/22 17:20 Urine Ketones Negative (Negative) 05/25/22 17:20 Urine Nitrite Negative (Negative) 05/25/22 17:20 Ur Leukocyte Esterase 1+ (Negative) H 05/25/22 17:20 Urine WBC (Auto) 1-5 /hpf (0-5) 05/25/22 17:20 Urine RBC (Auto) 0-4 /hpf (0-4) 05/25/22 17:20 U Hyaline Cast (Auto) 0 /lpf (0-5) 05/25/22 17:20 U Epithel Cells (Auto) >30 /lpf (0-5) H 05/25/22 17:20 Urine Bacteria (Auto) Negative (Negative) 05/25/22 17:20 05/09/22 17:04 Aerobic Blood Culture - Final Blood No growth in Aerobic bottle after 5 days. Anaerobic Blood Culture - Final No growth in Anaerobic bottle after 5 days. 05/09/22 17:04 Aerobic Blood Culture - Final Blood No growth in Aerobic bottle after 5 days. Anaerobic Blood Culture - Final 05/09/22 16:58 Urine Culture - Final Urine,Clean Catch More than three types of organisms present, all high counts mixed probable skin mark - No further identifications or sensitivities to follow.
[2022-05-28] MEDS ORDERED: LACTATED RINGER'S 1,000 ML IV SCH (13:45)
[2022-05-28] MEDS ORDERED: CIPROFLOXACIN / D5W 400 MG/200 ML BAG IV SCH (14:00)
--- NOTE | 2022-05-28 14:03 | GI REPORT ---
Patient Name: Elaine Vasquez Procedure Date: 05/28/2022 1:33 PM Date of : 1935 Admit Type: Inpatient Age: 86 Gender: Female Attending MD: Mann Abreu DO, Procedure: Upper GI endoscopy Providers: Mann Abreu DO Referring MD: Geraldine Cardoza Md Indications: Nausea with vomiting Medicines: General Anesthesia Complications: No immediate complications. Estimated blood loss: Minimal. Estimated Blood Loss: Estimated blood loss was minimal. Procedure: Pre-Anesthesia Assessment: - Prior to the procedure, a History and Physical was performed, and patient medications, allergies and sensitivities were reviewed. The patient's tolerance of previous anesthesia was reviewed. - The risks and benefits of the procedure and the sedation options and risks were discussed with the patient. All questions were answered and informed consent was obtained. - Patient identification and proposed procedure were verified prior to the procedure by the physician, the nurse and the motorboat mechanic. The procedure was verified in the procedure room. - Pre-procedure physical examination revealed no contraindications to sedation. - ASA Grade Assessment: IV - A patient with severe systemic disease that is a constant threat to life. - After reviewing the risks and benefits, the patient was deemed in satisfactory condition to undergo the procedure. - Immediately prior to administration of medications, the patient was re-assessed for adequacy to receive sedatives. - The heart rate, respiratory rate, oxygen saturations, blood pressure, adequacy of pulmonary ventilation, and response to care were monitored throughout the procedure. - The physical status of the patient was re-assessed after the procedure. After obtaining informed consent, the endoscope was passed under direct vision. Throughout the procedure, the patient's blood pressure, pulse, and oxygen saturations were monitored continuously. The Endoscope was introduced through the mouth, and advanced to the second part of duodenum. The upper GI endoscopy was accomplished without difficulty. The patient tolerated the procedure well. Findings: The middle third of the esophagus and lower third of the esophagus were moderately tortuous. 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 The proximal extent of the gastric folds (end of tubular esophagus) was 32 cm from the incisors. The hiatal narrowing was 40 cm from the incisors. The Z-line was 32 cm from the incisors. The gastric body, incisura and gastric antrum were normal. The examined duodenum was normal. Impression: - Tortuous esophagus. - Medium-sized paraesophageal hernia. - Normal gastric body, incisura and antrum. - Normal examined duodenum. - No specimens collected. Recommendation: - Perform an upper endoscopic ultrasound (UEUS) today. Mann Abreu D.O. Mann Abreu, 05/28/2022 2:03:25 PM This report has been signed electronically. Note Initiated On: 05/28/2022 1:33 PM Number of Addenda: 0 I attest to the content of the Intraoperative Record and orders documented therein, exceptions below {[id number]}
[2022-05-28] MEDS ORDERED: ROCURONIUM BROMIDE 10 MG/ML 5 ML VIAL IV ONE (14:06)
[2022-05-28] MEDS ORDERED: PROPOFOL IV EMULSION 10 MG/ML 20 ML VIAL IV ONE (14:06)
[2022-05-28] MEDS ORDERED: ONDANSETRON INJ 2 MG/ML 2 ML VIAL ONE (14:06)
[2022-05-28] MEDS ORDERED: GLYCOPYRROLATE 0.2 MG/ML VIAL ONE ×2 (14:07→14:32)
[2022-05-28] MEDS ORDERED: NEOSTIGMINE METHYLSULFATE 1 MG/ML 10ML VIAL ONE (14:07)
[2022-05-28] MEDS ORDERED: ESMOLOL HCL INJ 10 MG/ML 10ML VIAL IV ONE (14:32)
--- NOTE | 2022-05-28 14:39 | Post Operative Brief Note ---
Immediate Post Op Note v1 Date of Surgery May 28, 2022 Pre & Post Diagnosis Operation Date: 05/28/22 14:00 Pre-Op Diagnosis: Pancreatic mass Hiatal hernia I identified the patient and participated in the time-out.: Yes Procedure Operation Date: 05/28/22 14:00 Upper endoscopy Endoscopic ultrasound with FNA Surgeon Mann Abreu, Senior Bookkeeper None Estimated Blood Loss 0 Findings See Below (Paraesophageal hernia (type 3), Pancreatic head mass)
--- NOTE | 2022-05-28 14:47 | GI REPORT ---
Patient Name: Elaine Vasquez Procedure Date: 05/28/2022 1:32 PM Date of : 1935 Admit Type: Inpatient Age: 86 Gender: Female Attending MD: Mann Abreu DO, Procedure: Upper EUS Providers: Mann Abreu DO Referring MD: Geraldine Cardoza Md Indications: Suspected mass in pancreas on CT scan Medicines: Monitored Anesthesia Care Complications: No immediate complications. Estimated blood loss: Minimal. Estimated Blood Loss: Estimated blood loss was minimal. Procedure: Pre-Anesthesia Assessment: - Prior to the procedure, a History and Physical was performed, and patient medications, allergies and sensitivities were reviewed. The patient's tolerance of previous anesthesia was reviewed. - The risks and benefits of the procedure and the sedation options and risks were discussed with the patient. All questions were answered and informed consent was obtained. - Patient identification and proposed procedure were verified prior to the procedure by the physician, the nurse and the operating room technician. The procedure was verified in the procedure room. - The risks and benefits of the procedure and the sedation options and risks were discussed with the patient. All questions were answered and informed consent was obtained. - Patient identification and proposed procedure were verified prior to the procedure by the physician, the nurse and the operating room technician. The procedure was verified in the procedure room. - Pre-procedure physical examination revealed no contraindications to sedation. - ASA Grade Assessment: III - A patient with severe systemic disease. - After reviewing the risks and benefits, the patient was deemed in satisfactory condition to undergo the procedure. - The anesthesia plan was to use monitored anesthesia care (MAC). - Immediately prior to administration of medications, the patient was re-assessed for adequacy to receive sedatives. - The heart rate, respiratory rate, oxygen saturations, blood pressure, adequacy of pulmonary ventilation, and response to care were monitored throughout the procedure. - The physical status of the patient was re-assessed after the procedure. After obtaining informed consent, the endoscope was passed under direct vision. Throughout the procedure, the patient's blood pressure, pulse, and oxygen saturations were monitored continuously. The Endosonoscope was introduced through the mouth, and advanced to the second part of duodenum. The upper EUS was accomplished without difficulty. The patient tolerated the procedure well. Findings: ENDOSONOGRAPHIC FINDING: : There was no sign of significant endosonographic abnormality in the ampulla. No masses were identified. There was no sign of significant endosonographic abnormality in the common bile duct. The maximum diameter of the duct was 6 mm. No stones, no biliary sludge and ducts of normal caliber were identified. Multiple stones and sludge material were visualized endosonographically in the gallbladder. The stones and sludge were irregular. They were hyperechoic. Endosonographic imaging in the visualized portion of the liver showed no intrahepatic ductal dilation or mass. No lymphadenopathy seen. There was no sign of significant endosonographic abnormality in the left adrenal gland. No adrenal gland enlargement was identified. An irregular mass was identified in the uncinate process of the pancreas. The mass was hypoechoic and heterogenous. The mass measured 35 mm by 30 mm in maximal cross-sectional diameter. The endosonographic borders were poorly-defined. There was sonographic evidence suggesting invasion into the portal vein (manifested by abutment). An intact interface was seen between the mass and the superior mesenteric artery, celiac trunk, hepatic artery and gastroduodenal artery suggesting a lack of invasion. The remainder of the pancreas was examined. The endosonographic appearance of parenchyma and the upstream pancreatic duct indicated no duct dilation and parenchymal atrophy. Fine needle aspiration for cytology was performed. Color Doppler imaging was utilized prior to needle puncture to confirm a lack of significant vascular structures within the needle path. Five passes were made with the 25 gauge needle using a transduodenal approach. A stylet was used. A chemical blender was present to evaluate the adequacy of the specimen. Final cytology results are pending. Estimated blood loss was minimal. Impression: - There was no sign of significant pathology in the ampulla. - There was no sign of significant pathology in the common bile duct. - Multiple stones and sludge were visualized endosonographically in the gallbladder. - Endosonographic images of the left adrenal gland were unremarkable. - A 35 mm mass was identified in the uncinate process of the pancreas. This was staged T3 N0 M0 by endosonographic criteria. The staging applies if malignancy is confirmed. Fine needle aspiration performed. Recommendation: - [facility]. - Full liquid diet today. - Await cytology results. - Cipro (ciprofloxacin) 400 mg IV q 12 hr for 5 days (may convert to oral if patient to be discharged). - May resume anticoagulation in 48 hours. Mann Abreu D.O. Mann Abreu, 05/28/2022 2:47:14 PM This report has been signed electronically. Note Initiated On: 05/28/2022 1:32 PM Number of Addenda: 0 I attest to the content of the Intraoperative Record and orders documented therein, exceptions below {[id number]}
--- NOTE | 2022-05-28 14:50 | Communication Note ---
Date of Service: May 28, 2022 Patient underwent upper endoscopy and endoscopic ultrasound this afternoon. She was found to have a type III paraesophageal hernia in addition to a 35 mm mass arising from the region of the uncinate process. This included stone and sludge material within the gallbladder. Aspiration was performed from the pancreatic mass. Recommendations: Cipro bid for 5 days May resume anticoaguliaton in 48 hours Await cytology results, if a maligancy is confirmed the patient would need a medical oncology and surgical oncology referral. Based on the patient's comorbid medical problems and the size of she is an unlikely surgical candidate.
--- NOTE | 2022-05-28 15:24 | Anesthesiology Progress Note ---
Date of Service May 28, 2022 Anesthesia Post Procedure Vital Signs Vital Signs: Temp Pulse Pulse Pulse Resp BP BP 05/28/22 15:10 36.6 C 92 H 18 100/62 05/28/22 15:00 90 18 93/60 L 05/28/22 14:50 90 18 104/64 05/28/22 14:42 36.2 C L 86 16 110/68 05/28/22 13:28 36.9 C 89 14 123/82 05/28/22 11:23 36.8 C 84 14 113/73 05/28/22 08:05 36.9 C 78 18 114/71 05/27/22 20:06 05/27/22 21:29 37.1 C 05/27/22 20:06 38.2 C H 90 16 122/73 05/27/22 16:00 37.1 C 83 16 120/73 Pulse Ox Pulse Ox O2 Del Method O2 Del Method O2 Flow Rate 05/28/22 15:10 96 Nasal Cannula 2 05/28/22 15:00 93 Nasal Cannula 2 05/28/22 14:50 94 Oxymask 7 05/28/22 14:42 97 Oxymask 7 05/28/22 13:28 95 Room Air 05/28/22 11:23 92 Room Air 05/28/22 08:05 96 Room Air 05/27/22 20:06 94 Room Air 05/27/22 21:29 05/27/22 20:06 94 Room Air 05/27/22 16:00 97 Room Air Pain Intensity Abdomen: Pain Intensity: 3 Transfer of Care Handoff Completed per policy Notes Mental Status: alert / awake / arousable Patient Amnestic to Procedure: Yes Nausea / Vomiting: adequately controlled Pain: adequately controlled Airway Patency, RR, SpO2: stable & adequate BP & HR: stable & adequate Hydration State: stable & adequate Anesthetic Complications: no major complications apparent
[2022-05-28] MEDS: METOPROLOL TARTRATE 25 MG TAB PO SCH ×2 (16:41→20:38)
[2022-05-28] MEDS: COLESTIPOL HCL 1 GM TAB PO SCH (16:41)
[2022-05-28] MEDS: DORZOLAMIDE/TIMOLOL 22.3/6.8MG/ML 10 ML BTL OP SCH ×2 (16:41→20:34)
[2022-05-28] MEDS: PANTOprazole 40 MG TAB PO SCH ×2 (16:41→20:34)
[2022-05-28] MEDS: dilTIAZem HCL 240 MG CAPCR PO SCH (16:51)
[2022-05-28] MEDS: lisinopril 20 MG TAB PO SCH (16:51)
[2022-05-28] MEDS: SPIRONOLACTONE 100 MG TAB PO SCH (16:59)
[2022-05-28] MEDS: BIMATOPROST 0.01% OP SOLN 2.5 ML BTL OP SCH (16:59)
[2022-05-28] MEDS: FLUTICASONE/VILANTEROL 100/25MCG 14 PUFFS/INHALER INH SCH (16:59)
--- NOTE | 2022-05-28 17:43 | Hospitalist Progress Note ---
Date of Service May 28, 2022 Assessment & Plan (1) Pancreatic mass: Plan: uncinate process. s/p EUS with biopsy by [facility] (Dr Abreu) on 05/28/22 -biopsy pending holding heparin and Eliquis--ok to restart anticoag in 48 hrs after procedure having pain but not taking pain meds Has f/u appt scheduled with Oncology for 06/03 to review results (2) Diarrhea: Plan: Improved/resolved after starting colestipol Now she has concerns about constipation but had 2 BMs on 05/28 s/p flex sig 05/16/[address] Hoffman -- grossly the transverse colon looked like ischemic bowel per GI. Repeat c diff negative. If diarrhea returns could consider trial of creon given her pancreatic mass. Of note - Keytruda is associated with colitis as well. Keytruda has been used for her melanoma. However, at this point, diarrhea/colitis likely ischemic in origin. 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 was placed on heparin drip but then on hold for procedure SMA was not affected based on last imaging study. SMV thrombosis can cause diarrhea. Exact pathophysiology is unknown, but some sources state it can cause a secretory diarrhea due to ion channel disruption. -plan to restart Lovenox as per Heme/Onc recommendation 48 hrs after procedure at least until seen in f/u by Oncology next week (4) Ischemic colitis: Plan: Evidence of ischemic colitis on flex sig performed on 05/15/22. Received course of broad-spectrum abx earlier this stay - now discontinued. Cont low fiber diet. NO gross blood. NO peritonitis on exam. 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 (5) Hypokalemia: Plan: resolved during this stay she was started on lisinopril + aldactone + K supplements these were titrated to large doses - 40mg and 200mg, respectively, along with 40meq BID of KCL cut lisinopril dose in 1/2 to 20mg daily as BPs are low-normal K supplements now discontinued reduced aldactone to 100mg would continue to wean off aldactone repeat BMP tomorrow (6) Hypertension: Plan: Remains on complex regimen including lisinopril, aldactone, cardizem 240, and metoprolol 25 BID lisinopril dose reduced to 20mg daily reduced aldactone to 100mg daily follow response cont to taper meds if needed (7) UTI (urinary tract infection): Plan: patient received several doses of IV abx earlier this stay clinically resolved, but then having urinary frequency again this was likely due to IV fluids repeat u/a largely nl bladder scan w/o retention frequency of urination improved after fluids were d/c (8) Malignant melanoma of left lower leg: Plan: 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 Continues to follow with [facility]c. 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 (9) Anemia: Plan: s/p intermittent Fe infusions as outpatient as well as here Ferritin >1000 (acute phase); transferrin sat - <20% -- but hold off on additional Fe at this time Folate wnl B12 level earlier this year wnl H/H stable aat 9.3 No evidence of GI bleeding follow CBC in AM (10) Elevated troponin: Plan: likely myocardial demand ischemia No known underlying CAD; no ischemic symptoms Remains on aspirin and statin Echocardiogram with preserved left ventricular ejection fraction of 60 to 65% with no regional wall motion abnormalities (11) Glaucoma: Plan: Continue home eyedrops (12) Paroxysmal atrial fibrillation: Plan: Patient was on anticoagulation with heparin drip while holding ELiquis Plan to give therapeutic dosing of Lovenox starting 48 hrs from procedure at least until seen by Heme/Onc in follow up next week. Heme will then decide whether or not to place her back on her Eliquis vs continuing on Lovenox Continue metoprolol and diltiazem. Examines NSR today. (13) Transient cerebral ischemia: Plan: History of TIA in the past. Continue with aspirin and statin along with anticoagulation for secondary prevention. But ASA on hold for procedure (14) Hyperlipidemia: Plan: Continue atorvastatin. (15) GERD (gastroesophageal reflux disease): Plan: Continue PPI Has a known large hiatal hernia (16) Hiatal hernia: Plan: Cont PPI Plan dispo post-d/c -- rehab - [facility] is first choice with SNF as backup choice. If doesn't qualify for auth through insurance, will plan to dc home with home health tomorrow Admission and Anticipated Discharge Date Admission Date: May 09, 2022 Subjective Pt recovering from EUS/EGD earlier today. Is tolerating liquids for dinner. Pain controlled. Is ambulating in the halls. Review of Systems Review of Systems: All systems reviewed & are unremarkable except as noted in HPI & below Physical Exam Constitutional: WD/WN, vitals as above Eyes: + anicteric sclerae Neck: trachea midline, no thyromegaly Respiratory: normal respiratory effort, lungs clear to auscultation Cardiovascular: RRR, no murmur, no edema Chest (Breasts): Chest: normal inspection of chest Gastrointestinal (Abdomen): Inspection/Auscultation: abdomen normal to inspection and normal bowel sounds; abdomen not distended Percussion/Palpation: + abdomen tender (mild, in epigastric region without guarding) and abdomen soft; no guarding, abdomen not rigid, no hernia and no abdominal mass Musculoskeletal: Extremities: extremities normal to inspection; no cyanosis and no clubbing Skin: no rashes, warm and dry Neurologic: moves all extremities and awake; no focal motor deficits Psychiatric: A+Ox3, euthymic affect Lymphatic: no lymphedema Results & Data Results & Data ([facility]) Vital Signs (Past 12 Hours) Vital Signs Temp Pulse Pulse Resp BP BP Pulse Ox 05/28/22 17:27 74 18 137/85 98 05/28/22 16:30 36.9 C 90 16 100/66 94 05/28/22 16:00 36.6 C 99 H 16 94/69 L 93 05/28/22 15:36 36.7 C 94 H 18 95/62 L 93 05/28/22 15:10 36.6 C 92 H 18 100/62 96 05/28/22 15:00 90 18 93/60 L 93 05/28/22 14:50 90 18 104/64 94 05/28/22 14:42 36.2 C L 86 16 110/68 97 05/28/22 13:28 36.9 C 89 14 123/82 95 05/28/22 11: 36.8 C 84 14 113/73 92 05/28/22 08:05 36.9 C 78 18 114/71 96 O2 Del Method O2 Flow Rate 05/28/22 17:27 Room Air 05/28/22 16:30 Room Air 05/28/22 16:00 Room Air 05/28/22 15:36 Nasal Cannula 2 05/28/22 15:10 Nasal Cannula 2 05/28/22 15:00 Nasal Cannula 2 05/28/22 14:50 Oxymask 7 05/28/22 14:42 Oxymask 7 05/28/22 13:28 Room Air 05/28/22 11:23 Room Air 05/28/22 08:05 Room Air Laboratory Results 05/28/22 05/28/22 Range/Units 07:43 07:42 WBC 6.70 (4.8-10.8) K/ul RBC 3.68 L (3.93-5.22) M/uL Hgb 9.3 L (12.0-16.0) g/dl Hct 29.5 L (34.1-44.9) % MCV 80.2 (80.0-100.0) fL MCH 25.3 (25.0-34.0) pg MCHC 31.5 L (32.0-36.0) g/dL RDW Std Deviation 65.4 H (36.4-46.3) fL RDW Coeff of Pawan 23.2 H (11.5-14.5) % Plt Count 327 (130-400) K/uL MPV 9.1 L (9.4-12.3) fL Immature Gran % (Auto) 0.7 % Neut % (Auto) 57.8 % Lymph % (Auto) 30.0 % [place] % (Auto) 9.6 % Eos % (Auto) 1.3 % Baso % (Auto) 0.6 % Neut # (Auto) 3.87 (1.4-6.5) K/uL Lymph # (Auto) 2.01 (1.2-3.4) K/uL [place] # (Auto) 0.64 (0.24-0.82) K/uL Eos # (Auto) 0.09 (0-0.50) K/uL Baso # (Auto) 0.04 (0-0.2) K/uL Immature Gran # (Auto) 0.05 H (0.00-0.02) K/uL Anisocytosis Present Rouleaux 1+ Sodium 136 (136-145) mmol/L Potassium 3.7 (3.5-5.1) mmol/L Chloride 106 (98-107) mmol/L Carbon Dioxide 22 (21-32) mmol/L Anion Gap 8 (3-11) BUN 20 (6-23) mg/dl Creatinine 0.73 (0.6-1.2) mg/dl Est Cr Clr Drug Dosing 39.1 ml/min Est GFR ( Amer) 87.7 ml/min Est GFR (Non-Af Amer) 75.6 ml/min BUN/Creatinine Ratio 27.4 H (10-20) Glucose 106 H (70-99(Fasting)) mg/dl Calcium 8.6 (8.5-10.1) mg/dl Magnesium 2.0 (1.7-2.4) mg/dl Total Bilirubin 0.4 (0.2-1.0) mg/dl AST 14 (13-39) U/L ALT 15 (7-52) U/L Alkaline Phosphatase 104 (34-104) U/L Total Protein 6.0 (6.0-8.3) gm/dl Albumin 3.0 L (3.4-5.0) gm/dl Globulin 3.0 (2.5-4.0) gm/dl Albumin/Globulin Ratio 1.0 (0.9-2) PG Care Time/CCT Total # of Minutes Spent Total Time Spent with Patient: Total time spent is greater than 50% in coordination of care (as documented) at patient's floor/unit and/or counseling patient: Coding Level of Care Code 26429 SUB INP/OBS CARE 2/35MIN Diagnoses Pancreatic mass K86.89 Diarrhea R19.7 Superior mesenteric vein thrombosis K55.069 Ischemic colitis K55.9 Hypokalemia E87.6 Hypertension I10 UTI (urinary tract infection) N39.0 Malignant melanoma of left lower leg C43.72 Anemia D64.9 Elevated troponin R77.8 Glaucoma H40.9 Paroxysmal atrial fibrillation I48.0 Transient cerebral ischemia G45.9 Hyperlipidemia E78.5 GERD (gastroesophageal reflux disease) K21.9 Hiatal hernia K44.9
[2022-05-28] MEDS: NEVANAC OPR SCH (20:34)
[2022-05-28] MEDS: ATORVASTATIN 10 MG TAB PO SCH (20:34)
[2022-05-29 08:16] LABS: Basophils # (auto) 0.05 K/uL (0-0.2); Basophils % (auto) 0.8 %; Eosinophils # (auto) 0.09 K/uL (0-0.50); Eosinophils % (auto) 1.4 %; Hematocrit (blood only) 29.2 % (34.1-44.9); Hemoglobin 9.4 g/dl (12.0-16.0); Immature Granulocytes # (auto) 0.06 K/uL (0.00-0.02); Immature Granulocytes % (auto) 0.9 %; Lymphocytes # (auto) 2.49 K/uL (1.2-3.4); Lymphocytes % (auto) 37.7 %; Mean Corpuscular Hemoglobin 25.3 pg (25.0-34.0); Mean Corpuscular Hgb Conc 32.2 g/dL (32.0-36.0); Mean Corpuscular Volume 78.5 fL (80.0-100.0); Mean Platelet Volume 9.1 fL (9.4-12.3); Monocytes # (auto) 0.66 K/uL (0.24-0.82); Neutrophils # (auto) 3.25 K/uL (1.4-6.5); Neutrophils % (auto) 49.2 %; Platelet Count 303 K/uL (130-400); RDW Coefficient of Variation 23.1 % (11.5-14.5); RDW Standard Deviation 64.7 fL (36.4-46.3); Red Blood Count 3.72 M/uL (3.93-5.22)
[2022-05-29 08:43] LABS: Anisocytosis Present
[2022-05-29] MEDS: BIMATOPROST 0.01% OP SOLN 2.5 ML BTL OP SCH (08:46)
[2022-05-29] MEDS: dilTIAZem HCL 240 MG CAPCR PO SCH (08:47)
[2022-05-29] MEDS: lisinopril 20 MG TAB PO SCH (08:47)
[2022-05-29] MEDS: PANTOprazole 40 MG TAB PO SCH (08:48)
[2022-05-29] MEDS: SPIRONOLACTONE 25 MG TAB PO SCH ×2 (08:48→09:24)
[2022-05-29] MEDS: METOPROLOL TARTRATE 25 MG TAB PO SCH (08:48)
[2022-05-29] MEDS ORDERED: CIPROFLOXACIN / D5W 400 MG/200 ML BAG IV SCH (09:15)
--- NOTE | 2022-05-29 09:20 | Gastroenterology Progress Note ---
Date of Service May 29, 2022 Assessment & Plan (1) Hiatal hernia: (2) Pancreatic mass: (3) Colitis: Plan: Pt is a 86 yo female w histories of melanoma, ischemic colitis, SMV stenosis/occlusion, pancreas mass. Most recent GI issue of diarrhea has resolved. Cdiff negative. Abd exam benign this AM. She underwent EUS w pancreas mass FNA yesterday, doing quite well today. - Advance diet as tolerated - Cipro 400mg IV BID x 5 days total (can convert to PO if pt is DC'd). - Colestid 1g daily; may DC if no longer having diarrhea - May resume anticoaguliaton in 48 hours after EUS - Await EUS path, refer to med + surg oncology if malignancy confirmed. - GI to sign off; pls recall prn Admission and Anticipated Discharge Date Admission Date: May 09, 2022 Subjective Pt reports some abd pain, but no n/v, tolerating solid breakfast well. Is passing little flatus Review of Systems Review of Systems: All systems reviewed & are unremarkable except as noted in HPI & below Physical Exam Constitutional: WD/WN, vitals as above well groomed, cooperative and comfortable Eyes: PERRL, conjunctivae normal, anicteric sclerae ENMT: external ear and nose normal, oropharynx normal Respiratory: normal respiratory effort, lungs clear to auscultation Cardiovascular: RRR, no murmur, no edema Gastrointestinal (Abdomen): normal bowel sounds, soft, nontender, no hepatosplenomegaly Skin: no rashes, warm and dry no jaundice Psychiatric: A+Ox3, euthymic affect Lymphatic: no lymphedema Results & Data ([facility]) Vital Signs (Past 12 Hours) Vital Signs Temp Pulse Resp BP BP Pulse Ox O2 Del Method 05/29/22 08:49 100 H 104/68 05/29/22 07:40 37 C 98 H 16 114/75 95 Room Air 05/29/22 00:34 36.8 C 100 H 18 116/78 93 Room Air
[2022-05-29] MEDS: FLUTICASONE/VILANTEROL 100/25MCG 14 PUFFS/INHALER INH SCH (09:23)
[2022-05-29] MEDS: LIDOCAINE 5% 1 PATCH TD SCH (09:23)
[2022-05-29] MEDS: DORZOLAMIDE/TIMOLOL 22.3/6.8MG/ML 10 ML BTL OP SCH (09:25)
[2022-05-29 09:57] LABS: Calcium 8.7 mg/dl (8.5-10.1); Creatinine Clr Calc Pharmacy 38.6 ml/min; Est GFR (African American) 86.2 ml/min; Est GFR (Non-African American) 74.4 ml/min; Potassium 4.2 mmol/L (3.5-5.1)
[2022-05-29] MEDS: COLESTIPOL HCL 1 GM TAB PO SCH (10:48)
--- NOTE | 2022-05-29 12:05 | Discharge Summary ---
Date of Service May 29, 2022 Admission HPI Per Admitting Provider Elaine Vasquez is an 86-year-old female with a past medical history significant for recurrent melanoma, A. fib RVR, iron deficiency anemia, pretension, and GERD who is presenting today for abdominal pain. The past week she has noticed more bloating in her upper abdomen associated with nausea and vomiting up to 4 times a day. She also been constipated, however notes she is taking iron supplements so is unsure if this is new for her. She took two enemas over the last 48 hours without any success. She also noted a 27 lb unintentional weight loss over the past 6 months. She has not noticed any night sweats or decreased appetite. Due to the severity of the pain today, presents for further evaluation. During stay in the ED, she has been moderately hypertensive and borderline tachycardic to low 100s, otherwise afebrile and SPO2 >92% on room air. Labs notable for WBC of 26 with left shift, AG 15, glucose 161, alk phos 110. No electrolyte abnormalities, impaired renal function or hepatic function. COV ID-negative. Lipase 25. 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 Consistent with a neoplasm and pancreatic adenocarcinoma is primary consideration, and infiltrative mesenteric mass could appear similarly. There is also wall thickening of the transverse colon with mild adjacent stranding suggestive of nonspecific colitis, venous and symptomatic colitis is within the differential given SMV stenosis/occlusion. Also large hiatal hernia noted moderately distended partially visualized intrathoracic stomach with air-fluid level. Principal Diagnosis Pancreatic mass, abdominal pain, nausea/vomiting, large hiatal hernia Discharge Exam Constitutional WD/WN, vitals as above Eyes + anicteric sclerae Neck trachea midline, no thyromegaly Respiratory normal respiratory effort, lungs clear to auscultation Cardiovascular RRR, no murmur, no edema Chest (Breasts) Chest: normal inspection of chest Gastrointestinal (Abdomen) Inspection/Auscultation: abdomen normal to inspection and normal bowel sounds; abdomen not distended Percussion/Palpation: + abdomen tender (mild, in epigastric region without guarding) and abdomen soft; no guarding, abdomen not rigid, no hernia and no abdominal mass Musculoskeletal Extremities: extremities normal to inspection; no cyanosis and no clubbing Skin no rashes, warm and dry Neurologic moves all extremities and awake; no focal motor deficits Psychiatric A+Ox3, euthymic affect Lymphatic no lymphedema Discharge Data Allergies Allergy/AdvReac Type Severity Reaction Status Date / Time nivolumab [From Opdivo] Allergy Severe Unknown Verified 05/15/22 12:25 shellfish derived Allergy Severe "violently Verified 05/15/22 12:25 sick" after eating lobster shrimp Allergy Intermediate VIOLENTLY Verified 05/15/22 12:25 SICK pseudoephedrine AdvReac Severe PASSED Verified 05/15/22 12:25 OUT, SPACEY iodine AdvReac Intermediate SICK TO Verified 05/15/22 12:25 STOMACH Penicillins AdvReac Intermediate SICK TO Verified 05/15/22 12:25 STOMACH propoxyphene AdvReac Intermediate HYPER Verified 05/15/22 12:25 tetanus toxoid, adsorbed AdvReac Intermediate "OUT OF Verified 05/15/22 12:25 ORBIT" Consultations 05/09/22 15:52 ED Decision to Admit Stat 05/09/22 18:43 Consult Gastroenterology Routine 05/11/22 16:40 Consult General Surgery Routine 05/16/22 14:51 Consult Oncology Routine Procedures Performed Operation Date: 05/14/22 14:00 <No data on this case meets the specified criteria> Operation Date: 05/15/22 17:30 Actual Procedures p Flexible Sigmoidoscopy - Yasmani Hoffman MD Operation Date: 05/16/22 07:00 <No data on this case meets the specified criteria> Operation Date: 05/20/22 07:00 <No data on this case meets the specified criteria> Operation Date: 05/28/22 14:00 Actual Procedures p Esophagogastroduodenoscopy - Mann Abreu DO p Endoscopic Ultrasonography Upper with FNA - Mann Abreu DO Ordered Studies 05/09/22 12:40 CT abd pelvis IV con only Stat 05/12/22 10:37 CT abdomen wo/w con Routine 05/13/22 08:00 UGI [[place] GI series] Routine 05/28/22 12:34 US upper EUS PACS images Routine 05/28/22 13:40 US upper EUS PACS images Routine Hospital Course (1) Pancreatic mass: uncinate process. 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 Repeat c diff negative. If diarrhea returns could consider trial of creon given her pancreatic mass. Of note - Keytruda is associated with colitis as well. Keytruda has been used for her melanoma. However, at this point, diarrhea/colitis likely ischemic in origin. 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 was placed on heparin drip but then placed on hold for procedure SMA was not affected based on last imaging study. SMV thrombosis can cause diarrhea. Exact pathophysiology is unknown, but some sources state it can cause a secretory diarrhea due to ion channel disruption. -plan to restart Lovenox as per Heme/Onc recommendation 48 hrs after procedure at least until seen in f/u by Oncology next week -Discontinue home Eliquis for now Follow-up with hematology (4) Ischemic colitis: Evidence of ischemic colitis on flex sig performed on 05/15/22. Received course of broad-spectrum abx earlier this stay - now discontinued. Cont low fiber diet. NO gross blood. NO peritonitis on exam. 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 Continues to follow with [facility]/onc. 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 Follow-up with oncology after discharge (9) Anemia: s/p intermittent Fe infusions as outpatient as well as here Ferritin >1000 (acute phase); transferrin sat - <20% -- but hold off on additional Fe at this time Folate wnl B12 level earlier this year wnl H/H stable aat 9.3 No evidence of GI bleeding follow CBC as an outpatient with oncology (10) Elevated troponin: likely myocardial demand ischemia No known underlying CAD; no ischemic symptoms Remains on aspirin and statin Echocardiogram with preserved left ventricular ejection fraction of 60 to 65% with no regional wall motion abnormalities (11) Glaucoma: Continue home eyedrops (12) Paroxysmal atrial fibrillation: Patient was on anticoagulation with heparin drip while holding ELiquis Plan to give therapeutic dosing of Lovenox starting 48 hrs from procedure at least until seen by Heme/Onc in follow up next week. Heme will then decide whether or not to place her back on her Eliquis vs continuing on Lovenox Continue metoprolol and diltiazem. Examines in a regular rhythm throughout hospital stay (13) Transient cerebral ischemia: History of TIA in the past. Continue with aspirin and statin along with anticoagulation for secondary prevention. But ASA on hold for 48 hours post procedure (14) Hyperlipidemia: Continue atorvastatin. (15) GERD (gastroesophageal reflux disease): Continue PPI Has a known large hiatal hernia (16) Hiatal hernia: Cont PPI but was increased to twice daily Plan dispo-plan for discharge to home with home health today Total Time Total Time Spent Total Time Spent (In Minutes): 35 min Discharge Plan Discharge Items Patient Disposition: Home - Home Health Services Reason For Visit: COLITIS, SMV STENOSIS 2/2 NEW MASS Discharge Diagnosis: Ischemic colitis, Pancreatic mass, Large hiatal hernia Superior mesenteric vein thrombosis Condition on Discharge: Fair Activity: As commented below Bathing: No limitations Exercise/Sports: As tolerated Non-emergency contact: Primary Care Provider, Recreational Resort Manager and Oncologist Call non-emergency contact if: you have any medication questions, your symptoms worsen, your pain is not controlled, your pain is worsening, your pain is concer mya for you and you have a fever Follow-up/Referrals: Radha Valenzuela MD [Primary Care Provider] - (Please follow up within 1 week.) Mann Abreu DO [Physician] - (Follow-up as needed with gastroenterology.) Koby Mckeon MD [Physician] - 06/03/22 (Please keep your regularly scheduled appointment on 06/03.) Diet: Low Fiber Addtl Attending Provider Instructions: You are admitted with abdominal pain and nausea/vomiting. This was likely secondary to a combination of a large hiatal hernia as well as a newly found pancreatic mass. You had some improvement with your nausea/vomiting and are now tolerating a low fiber diet. Please continue to eat small amounts at a time of a soft diet after discharge. You had a biopsy of the pancreatic mass. The results are still pending at this time. Follow-up with the oncologist as scheduled to review the final results and determine the next steps in treatment. Continue taking the antibiotic for infection prevention for 3 and half more days. This is called Cipro. You can take Tylenol as needed for pain. You can take MiraLAX as needed for constipation or Imodium as needed for diarrhea. Because of the clogged vein in the abdomen, your Eliquis will be stopped for now. You will instead take Lovenox injections twice a day to begin on the evening of 05/30/2022. Please follow-up with the oncologist to determine if you will continue on the injections of Lovenox long-term versus going back on Eliquis at that time. Please do not restart your daily baby aspirin until the morning of 05/31. Due to elevated blood pressures, he was started on lisinopril and your dose of diltiazem was increased to 240 mg daily. Prescriptions were sent for these to your pharmacy. It was a pleasure taking care of you. I will keep you in my thoughts and prayers! -Geraldine Cardoza MD Pending Studies at Discharge: Yes Studies:: Pancreatic biopsy pathology Stand-Alone Forms: [facility] Medications and DC Order Prescriptions: New enoxaparin [Lovenox] 60 mg/0.6 mL syringe 45 mg subcut Q12H Qty: 12 0RF diltiazem HCl 240 mg Capsule,Extended Release 24hr 240 mg PO DAILY Qty: 30 0RF lisinopril 20 mg Tablet 20 mg PO QAM Qty: 30 0RF ciprofloxacin HCl 500 mg tablet 500 mg PO BID Qty: 7 0RF Continued potassium chloride 10 mEq capsule, extended release 10 meq PO DAILY Qty: 90 3RF fluticasone furoate-vilanterol [Breo Ellipta] 100-25 mcg/dose blister with device 1 inh inhalation DAILY Qty: 60 2RF dorzolamide-timolol [Cosopt] 22.3-6.8 mg/mL drops 1 drp OPL BID Lumigan 0.01 % drops 1 drp ophthalmic (eye) DAILY metoprolol tartrate 25 mg tablet 25 mg PO BID Qty: 180 3RF clindamycin HCl 150 mg capsule 150 mg PO DIRECTED PRN (Reason: 1 HR PRIOR TO DENTAL PROCEDURES) Label Comments: 150 mg PO 2 capsules one hour before dental procedures Rx Instructions: 150 mg PO 2 capsules one hour before dental procedures docusate sodium 100 mg capsule 100 mg PO HS biotin 1 mg tablet 1 mg PO DAILY triamcinolone acetonide 0.1 % cream 1 appln TOP DIRECTED Rx Instructions: USES 2-4 X PER DAY. diclofenac sodium [Arthritis Pain (diclofenac)] 1 % gel 2 g topical QID Nevanac 0.1 % drops,suspension 1 drp OPB DAILY acetaminophen [Tylenol Arthritis] 650 mg Tablet Extended Release 650 mg PO TID Gaviscon 160-105 mg Tablet,Chewable 1 tab PO HS Ensure Plus Liquid 1 ea PO DAILY Rx Instructions: 8 OZ. 350 KENZIE. Keytruda 25 mg/mL Solution 0 mg IV .Q3WK Iron Infusion 0 dose IV DIRECTED PRN (Reason: EXHAUSTION) atorvastatin 10 mg tablet 10 mg PO HS aspirin [Veena Low Dose Aspirin] 81 mg tablet,delayed release (DR/EC) 81 mg PO DAILY Qty: 90 3RF Rx Instructions: Do not restart until 05/31/2022 Changed omeprazole 20 mg capsule,delayed release(DR/EC) 20 mg PO BID Qty: 60 0RF Discontinued diltiazem HCl 120 mg capsule,ext.rel 24h degradable 120 mg PO DAILY Qty: 90 3RF apixaban 2.5 mg tablet 2.5 mg PO BID cholecalciferol (vitamin D3) 1,000 unit (25 mcg) tablet 1,000 units PO DAILY diphenhydramine HCl [Benadryl] 25 mg Capsule 25 mg PO DIRECTED PRN (Reason: [address] SCAN) prednisone 50 mg Tablet 150 mg PO DIRECTED PRN (Reason: [address] SCAN) Discharge Orders: Discharge Order (Routine); Ordered 05/29/22 Ordered By: Geraldine Cardoza Admission Data Admit Date/Time: 05/09/22 16:18 Attending Provider: Geraldine Cardoza Admit Provider: Rusty Pollack Primary Care Provider: Radha Valenzuela V. Other Providers: Geraldine Cardoza ; [place],[facility] ; [facility] ; [facility] ; Rusty Pollack ; Praveen Fletcher ; Paco Jhaveri ; Koby Mckeon Coding Level of Care Code HOSP INP/OBS DISCH >30 MIN Diagnoses Pancreatic mass K86.89 Diarrhea R19.7 Superior mesenteric vein thrombosis K55.069 Ischemic colitis K55.9 Hypokalemia E87.6 Hypertension I10 UTI (urinary tract infection) N39.0 Malignant melanoma of left lower leg C43.72 Anemia D64.9 Elevated troponin R77.8 Glaucoma H40.9 Paroxysmal atrial fibrillation I48.0 Transient cerebral ischemia G45.9 Hyperlipidemia E78.5 GERD (gastroesophageal reflux disease) K21.9 Hiatal hernia K44.9
--- NOTE | 2022-06-05 06:59 | Coding Query ---
PATHOLOGY To promote full compliance with coding requirements relating to patient care, physician participation is requested in all cases of geotechnical engineer uncertainty. Please assist us with the question(s) below: Please review the Pathology report and please document any relevant diagnosis(es) below. Thank you . 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
--- NOTE | 2022-06-10 06:50 | Coding Query ---
PATHOLOGY To promote full compliance with coding requirements relating to patient care, physician participation is requested in all cases of medical coder uncertainty. Please assist us with the question(s) below: Please review the Pathology report and please document any relevant diagnosis(es) below: * Path report : Mucinous Neoplasm of pancreas with low grade dysplasia. Please check below . Thank you. Diagnosis(es): Mucinous Neoplasm of Pancreas is Malignant Mucinous Neoplasm of Pancreas is Benign XXXX Mucinous Neoplasm of Pancreas : unable to clinically determine Other: Please document: MTDD
== END 2022-05-29 15:23 | disposition home health service (06) | DRG 374 ==
LOC: ED 12:18 → SUATTDRO 16:18 → EDINP 16:18 → 3W 22:22